=== PATIENT | female | born 1980 | race Caucasian/White ===

== ENCOUNTER 2024-01-12 19:26 | Emergency (ER) | payer MEDICARE, MEDICAID, SELFPAY ==
--- NOTE | ~2024-01-12 | CT_ITS ---
EXAMINATION: CT abdomen pelvis w con DATE: 01/12/2024 22:10 INDICATION: LUQ pain, L flank pain TECHNIQUE: Computed tomography (CT) of the abdomen and pelvis was performed with 100 mL Omnipaque-350 intravenous contrast. Automated exposure control and iterative reconstruction technique were employe d. The dose-length product was 803.64 mGy-cm. COMPARISON: None. FINDINGS: Lower thorax: Coronary artery calcifications. Sternotomy wires. Liver: Mildly enlarged. Biliary/Gallbladder: Gallbladder is absent. No bile duct dilation. Pancreas: No mass or duct dilation. Spleen: Mildly enlarged. Adrenals:No mass. Kidneys: No suspicious mass, obstructing stone, or hydronephrosis. Subcentimeter left upper pole hypo density most likely representing a cyst. GI tract: No small or large bowel dilation. Normal appendix. Mesentery/Peritoneum: No ascites, mass, or free air. Retroperitoneum: No mass. Pelvis: Pelvic organs are within normal limits. Right corpus luteal cyst. Soft Tissues: Small fat-containing uncomplicated umbilical hernia. Bones: No acute osseous finding. IMPRESSION: Mild hepatosplenomegaly. Otherwise, no acute abdominopelvic process detected. Reviewed, dictated and finalized at location K.
[2024-01-12 19:30] VITALS: BP 145/93; PULSE 92; RESP 16; TEMP 36.7; O2SAT 100
[2024-01-12 20:07] LABS: Basophils Percent Auto 0.7 % (0.2-1.2); Eosinophils Absolute Auto 0.3 K/mm3 (0-0.3); Eosinophils Percent Auto 5.1 % (0-4.4); Hematocrit 35.5 % (37.0-47.0); Hemoglobin 11.9 g/dL (12.0-15.0); Immature Granulocyte Absolute 0.02 K/mm3 (0.00-0.031); Immature Granulocyte Percent A 0.3 % (0-0.5); Lymphocytes Percent Auto 18.1 % (18.3-44.2); Mean Corpuscular HGB Conc 33.5 g/dl (32-36); Mean Corpuscular Hemoglobin 32.2 pg (26-34); Mean Corpuscular Volume 95.9 fl (80-100); Mean Platelet Volume 11.6 fl (7.4-10.4); Monocytes Absolute Auto 0.5 K/mm3 (0.1-0.6); Monocytes Percent Auto 8.7 % (2.6-8.5); Neutrophils Absolute Auto 4.1 K/mm3 (1.3-6.7); Neutrophils Percent Auto 67.1 % (45.5-73.1); Platelet Count Result 128 k/mm3 (150-375); Red Cell Distribution Width 12.9 % (11.5-14.5); White Blood Count 6.1 K/mm3 (4.5-10.0)
[2024-01-12 20:16] LABS: Alanine Aminotransferase 14 U/L (6-35); Albumin Level 4.1 g/dL (3.5-5.1); Alkaline Phosphatase 92 U/L (38-126); Anion Gap 6 mmol/L (4-12); Appearance Urine Clear (Clear); Aspartate Amino Transferase 22 U/L (14-36); Bacteria Urine 1+ /hpf; Bilirubin Urine Negative (Negative); Bilirubin,Total 0.6 mg/dL (0.2-1.3); Blood Urea Nitrogen 10 mg/dL (7-17); Blood Urine Non-Hemolyzed Trace (Negative); Carbon Dioxide 27 mmol/L (22-30); Chloride 106 mmol/L (98-107); Color Urine Yellow (Yellow); Estimated CRCL calculation 80 ml/min; Estimated Glomerular Filt Rate > 60; Glucose 90 mg/dL (65-110); Glucose Urine UA Negative (Negative); Ketones Urine Negative (Negative); Leukocyte Esterase Ur Negative LEU/UL (Negative); Lipase 117 U/L (23-300); Nitrate Urine Negative (Negative); Non Pathogenic Casts 0-2; Potassium 3.6 mmol/L (3.4-5.0); Protein Urine Negative (Negative); RBC Urine 0-2 /hpf (0-2); Sodium 139 mmol/L (137-145); Specific Grav Ur 1.024 (1.001-1.035); Squamous Epithelial Cell Urine Moderate /hpf (Few); Urobilinogen Urine 0.2 mg/dL (<2.0); pH Urine 5.5 (5.0-9.0)
[2024-01-12 20:28] LABS: Add Urine Microscopic? YES
--- NOTE | 2024-01-12 20:44 | ED.ABDPAIN ---
HPI - Abdominal Pain General Chief Complaint: Abdominal Pain Stated Complaint: abd pain Time Seen by Provider: 01/12/24 19:55 History of Present Illness HPI narrative: Patient is a 43-year-old female who presents to the emergency department this evening complaining of left-sided flank pain that started earlier this afternoon. 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 Patient denies any history of kidney stones. She also complains of mid abdominal/epigastric pain. She denies any nausea or vomiting, denies any urinary symptoms including dysuria or hematuria. She denies any recent illness, exposure to sick contacts and denies any fevers or chills. There are no other modifying, alleviating, or precipitating factors such Related Data Allergies Allergy/AdvReac Type Severity Reaction Status Date / Time Iodinated Contrast Media Allergy Other Verified 01/12/24 19:28 Review of Systems Review of Systems: All systems are reviewed and are negative unless stated otherwise in the HPI. Exam Narrative: General: Alert, awake, afebrile, in no acute distress. HEENT: PERRL, no rhinorrhea, no post nasal drip, oropharynx clear. Neck: Trachea midline, no JVD, no lymphadenopathy. Cardiovascular: Regular rate and rhythm, no murmurs, rubs or gallops, no peripheral edema. Respiratory: Clear to auscultation bilaterally, no tachypnea, no wheezing, no rhonchi, no rubs, no respiratory distress. Abdomen: Soft, nontender, nondistended, no rebound, no guarding, no peritoneal signs. Musculoskeletal: No joint swelling or deformity, normal muscle tone. Skin: No rashes or petechia, no signs of infection. Psychiatric: Alert and oriented, normal behavior and judgment for situation. Neurological: Alert and oriented to person, place, and time. Follows all commands. No focal deficits, speech is clear and fluent. Course Vital Signs Vital signs: Vital Signs Temperature 98.1 F 01/12/24 19:30 Pulse Rate 92 01/12/24 19:30 Respiratory Rate 16 01/12/24 19:30 Blood Pressure 145/93 H 01/12/24 19:30 Pulse Oximetry 100 01/12/24 19:30 Oxygen Delivery Room Air 01/12/24 19:30 Temperature 98.1 F 01/12/24 19:30 Pulse Rate 92 01/12/24 19:30 Respiratory Rate 16 01/12/24 19:30 Blood Pressure 145/93 H 01/12/24 19:30 Pulse Oximetry 100 01/12/24 19:30 Oxygen Delivery Room Air 01/12/24 19:30 MDM - Abdominal Pain MDM Narrative Medical decision making narrative: The patient was evaluated by myself in the emergency department. History is obtained from patient who is an independent historian and physical exam was performed. External medical records were reviewed at this time. IV was established and pertinent tests were ordered. Patient was administered 2 mg of IV morphine and 4 mg of IV Zofran. Patient does have an allergy to contrast dye and at this time 125 mg of IV Solu-Medrol and 50 mg of IV Benadryl were administered. Laboratory results obtained revealing no acute process. Urinalysis revealed trace blood and 1+ bacteria. Imaging studies obtained included CT abdomen and pelvis with IV contrast which was independently interpreted by me revealing no acute process, incidental hepatosplenomegaly, which is pending final radiology interpretation. Differential diagnosis considerations include pancreatitis, obstructive uropathy, pyelonephritis, and pancreatitis. Comorbidities impacting this visit include none. I have evaluated and discussed social determinants of health with the patient that could potentially impact subsequent diagnosis and treatment plans. On repeat assessment of the patient, reevaluation revealed that the patient is doing well and is in no acute distress. Patient symptoms have improved since she arrived to our emergency department. Repeat vital signs were all reviewed and noted to be stable. Differential diagnosis and treatment plan were discussed with the ching
[2024-01-12] MEDS: ONDANSETRON INJ 4 MG/2 ML VIAL IV PUSH (20:48)
[2024-01-12] MEDS: MORPHINE SULFATE (*CRX) 2 MG/ML INJ IV PUSH (20:48)
[2024-01-12] MEDS: diphenhydrAMINE HCl INJ 50 MG/ML VIAL IV PUSH (20:51)
[2024-01-12] MEDS: methylPREDNISolone SOD SUCC 125 MG VIAL IV PUSH (20:51)
[2024-01-12] MEDS: KETOROLAC 15 MG/ML VIAL (*BKC) IV PUSH (23:07)
[2024-01-12 23:16] VITALS: BP 118/68; PULSE 70; RESP 14; O2SAT 98
== END 2024-01-12 23:16 | disposition home or self-care (01) ==
PROVIDERS: Emergency Provider Emergency Medicine
DX: R10.9 Unspecified abdominal pain (principal); T14.8XXA Other injury of unspecified body region, initial encounter; R16.2 Hepatomegaly with splenomegaly, not elsewhere classified
CPT/HCPCS: 36415; 74177; 80053; 81001; 81025; 83690; 85025; 87086; 96374; 96375; 99284; J1200; J1885; J2270; J2405; J2919; Q9967

== ENCOUNTER 2024-05-13 20:16 | Emergency (ER) | payer MEDICARE, SELFPAY ==
--- NOTE | ~2024-05-13 | XR_ITS ---
EXAMINATION: XR chest 2V Exam Date/Time: 05/13/2024 20:35 CDT HISTORY: chest pain, hx surgery Comparison: None. RESULT: Lines, tubes, and devices: Multiple fractured sternotomy wires, without significant wire displacemen t. Cardiac valve replacement. Lungs and pleura: Clear. Cardiomediastinal silhouette: Stable. Other: No acute osseous or upper abdominal finding. IMPRESSION: No acute cardiopulmonary process. Reviewed, dictated and finalized at location K.
[2024-05-13 20:20] VITALS: BP 167/117; PULSE 137; RESP 20; TEMP 36.6; O2SAT 100
--- NOTE | 2024-05-13 20:21 | ECG_ITS ---
Test Date: 2024-05-13 20:28:13 Measurements Intervals [place] Rate: 120 P: 0 [place]: 0 QRS: -18 QRSD: 145 T: -4 QT: 340 QTc: 482 Interpretive Statements SINUS TACHYCARDIA WITH RAPID VENTRICULAR RESPONSE RIGHT BUNDLE BRANCH BLOCK [120+ ms QRS DURATION, UPRIGHT V1, 40+ ms S IN I/aVL/V4/V5/V6] No previous ECG available for comparison Electronically Signed On 05-14-2024 14:37:29 CDT by Tom Zabala M.D.
[2024-05-13 20:39] LABS: Basophils Percent Auto 0.5 % (0.2-1.2); Eosinophils Absolute Auto 0.4 K/mm3 (0-0.3); Eosinophils Percent Auto 5.4 % (0-4.4); Hemoglobin 13.8 g/dL (12.0-15.0); Immature Granulocyte Absolute 0.03 K/mm3 (0.00-0.031); Immature Granulocyte Percent A 0.4 % (0-0.5); Lymphocytes Percent Auto 16.3 % (18.3-44.2); Mean Corpuscular HGB Conc 35.4 g/dl (32-36); Mean Corpuscular Hemoglobin 33.9 pg (26-34); Mean Corpuscular Volume 95.8 fl (80-100); Mean Platelet Volume 11.6 fl (7.4-10.4); Monocytes Absolute Auto 0.6 K/mm3 (0.1-0.6); Monocytes Percent Auto 7.6 % (2.6-8.5); Neutrophils Absolute Auto 5.6 K/mm3 (1.3-6.7); Neutrophils Percent Auto 69.8 % (45.5-73.1); Platelet Count Result 128 k/mm3 (150-375); Red Blood Count 4.07 M/mm3 (4.2-5.4); Red Cell Distribution Width 13.4 % (11.5-14.5)
[2024-05-13 21:02] LABS: Prothrombin Time 13.8 Seconds (11.1-14.7)
[2024-05-13 21:03] LABS: Partial Thromboplastin Time 26.7 Seconds (22.3-36.8)
--- NOTE | 2024-05-13 23:04 | ED.CHESTPAIN ---
HPI - Chest Pain General Chief Complaint: Chest Pain Stated Complaint: chest pain and abd pain since 1800 Time Seen by Provider: 05/13/24 22:56 Source: patient Mode of arrival: ambulatory Limitations: no limitations History of Present Illness HPI narrative: this is a 43-year-old female who presents to the ED for chief complaint of chest pain beginning around 1800 tonight. Patient states that she has had cardiac history with stent placed in 2006 and aortic valve replacement in 2011. 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 She has not followed with a geoduck diver in many years. Endorses associated nausea and dizziness today. Reports history of anxiety and feels that this could be at play as well.. Describes the pain as a tightness in the central chest that does not radiate. No specific worsening with exertion. endorses some upper abdominal tightness as well. Denies shortness of breath, fevers, chills, recent illness, diarrhea, urinary symptoms, back pain, numbness, weakness. Related Data Allergies Allergy/AdvReac Type Severity Reaction Status Date / Time Iodinated Contrast Media Allergy Other Verified 01/12/24 19:28 Review of Systems Review of Systems: All systems as dictated in HPI Exam Narrative: GENERAL: Well-appearing, well-nourished, and in no acute distress. HEAD: Normocephalic, atraumatic. EYES: PERRLA and EOMI. ENT: Nares clear, no rhinorrhea or epistaxis. Mucous membranes moist. Oropharynx without tonsillar hypertrophy exudate or other lesions. NECK: Supple. No adenopathy or masses. CHEST: No respiratory distress. Clear to auscultation. No wheezes rales or rhonchi HEART: Regular rate and rhythm. No murmur heard. Normal peripheral pulses. ABDOMEN: Soft, nontender, nondistended, normal active bowel sounds. MSK: Normal range of motion. No edema. SKIN: Warm, dry, no rash. NEURO: Alert and oriented x4. No focal deficits. PSYCH: Normal mood and affect. Course Vital Signs Vital signs: Vital Signs Temperature 97.9 F 05/13/24 20:20 Pulse Rate 137 H 05/13/24 20:20 Respiratory Rate 20 05/13/24 20:20 Blood Pressure 167/117 H 05/13/24 20:20 Pulse Oximetry 100 05/13/24 20:20 Oxygen Delivery Room Air 05/13/24 20:20 Temperature 97.9 F 05/13/24 20:20 Pulse Rate 102 H 05/14/24 00:39 Respiratory Rate 16 05/14/24 00:39 Blood Pressure 109/64 05/14/24 00:39 Pulse Oximetry 97 05/14/24 00:39 Oxygen Delivery Room Air 05/13/24 20:20 MDM - Chest Pain MDM Narrative Medical decision making narrative: This is a 43-year-old female who presents to the ED for chief complaint of chest pain and anxiety beginning today. Vitals initially showing tachycardia and elevated blood pressure. Patient appears anxious. Exam is otherwise benign. Lab work shows normal CBC and normal CMP. D-dimer slightly elevated at 0.85. She is cleared for PE with YEARS criteria. Serial troponins are negative. Heart score is 2. Patient is feeling much better with morphine and Benadryl. Pt will be discharged in stable condition. Return precautions given and supportive measures discussed. Pt is understanding and agreeable with plan for discharge and follow-up with PCP. YEARS Algorithm for Pulmonary Embolism (PE) from [employer] on 05/14/2024 All calculations should be rechecked by clinician prior to use RESULT SUMMARY: PE excluded YEARS algorithm rules out PE (0.43% with symptomatic VTE during 3-month follow-up) INPUTS: patient ?> 0 = No Clinical signs of DVT ?> 0 = No Hemoptysis ?> 0 = No PE most likely diagnosis ?> 0 = No D-dimer >=,000 ng/mL ?> 0 = No Differential Diagnosis Differential diagnosis: Likely fracture of rib, pneumothorax, stable angina, unstable angina pectoris, atypical chest pain, st elevation myocardial infarction, costochondritis, chest pain and other ( anxiety) Lab Data 05/13/24 20:33
--- NOTE | 2024-05-13 23:05 | ECG_ITS ---
Test Date: 2024-05-13 23:23:54 Measurements Intervals [place] Rate: 99 P: 13 [place]: 124 QRS: 67 QRSD: 153 T: 72 QT: 388 QTc: 500 Interpretive Statements SINUS RHYTHM RIGHT BUNDLE BRANCH BLOCK [120+ ms QRS DURATION, UPRIGHT V1, 40+ ms S IN I/aVL/V4/V5/V6] Compared to ECG 05/13/2024 20:28:13 Sinus tachycardia no longer present Electronically Signed On 05-14-2024 14:41:59 CDT by Tom Zabala M.D.
[2024-05-13 23:20] LABS: D Dimer 0.85 ug/mL (<0.48)
--- NOTE | 2024-05-13 23:20 | PC.NURSE ---
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
[2024-05-13] MEDS: ONDANSETRON INJ 4 MG/2 ML VIAL IV PUSH (23:23)
[2024-05-13] MEDS: MORPHINE SULFATE (*CRX) 4 MG/ML INJ IV PUSH (23:23)
[2024-05-13 23:33] LABS: Alanine Aminotransferase 13 U/L (6-35); Albumin Level 4.1 g/dL (3.5-5.1); Alkaline Phosphatase 66 U/L (38-126); Anion Gap 9 mmol/L (4-12); Aspartate Amino Transferase 21 U/L (14-36); Bilirubin,Total 0.6 mg/dL (0.2-1.3); Blood Urea Nitrogen 14 mg/dL (7-17); Calcium 8.1 mg/dL (8.4-10.2); Carbon Dioxide 27 mmol/L (22-30); Chloride 101 mmol/L (98-107); Estimated CRCL calculation 74 ml/min; Estimated Glomerular Filt Rate > 60; Glucose 91 mg/dL (65-110); Lipase 67 U/L (23-300); Sodium 137 mmol/L (137-145)
[2024-05-13 23:45] LABS: Troponin I < 0.012 ng/mL (0.000-0.034)
[2024-05-14 00:39] VITALS: BP 109/64; PULSE 102; RESP 16; O2SAT 97
[2024-05-14] MEDS: diphenhydrAMINE HCl INJ 50 MG/ML VIAL 25 MG IV PUSH (01:42)
[2024-05-14 02:00] VITALS: BP 125/84; PULSE 100; RESP 14; O2SAT 97
[2024-05-14 02:47] LABS: Troponin I < 0.012 ng/mL (0.000-0.034)
[2024-05-14 03:14] VITALS: BP 110/60; PULSE 99; RESP 15; TEMP 37.1; O2SAT 99
== END 2024-05-14 03:16 | disposition home or self-care (01) ==
PROVIDERS: Emergency Provider Physician Assistant
DX: R07.89 Other chest pain (principal)
CPT/HCPCS: 36415; 71046; 80053; 83690; 84484; 85025; 85380; 85610; 85730; 93005; 96374; 96375; 99284; J1200; J2270; J2405

== ENCOUNTER 2024-07-05 20:08 | Emergency (ER) | payer MEDICARE, SELFPAY ==
--- NOTE | ~2024-07-05 | CT_ITS ---
EXAMINATION: CTA chest PE protocol DATE: 07/06/2024 07:25 CDT INDICATION: Chest pain TECHNIQUE: Computed tomographic angiography (CTA) of the chest was performed with 100 mL Omnipaque-35 0 intravenous contrast. The dose-length product was 730.98 mGy-cm. Maximum intensity projection 3D-re constructions of the aorta and other arteries were constructed by the technologist on a separate work station. Automated exposure control and iterative reconstruction technique were employed. COMPARISON: Chest x-ray dated 07/05/2024. FINDINGS: Cardiomegaly. No significant pleural or pericardial effusion. Upper abdomen is unremarkable . No dilated main pulmonary artery, suspicious for pulmonary hypertension. There is a prosthetic pulm onic valve. There is a left pulmonary artery stent. No evidence for pulmonary embolism. There are bor derline sized mediastinal lymph nodes, likely reactive. Upper abdomen is unremarkable. No focal airsp amairani consolidation. IMPRESSION: 1. No acute cardiopulmonary disease. No evidence for pulmonary embolism. Reviewed, dictated and finalized at location B.
--- NOTE | ~2024-07-05 | XR_ITS ---
EXAMINATION: XR chest 2V Exam Date/Time: 07/05/2024 20:21 CDT HISTORY: CP Comparison: 05/13/2024. RESULT: Lines, tubes, and devices: Multiple fractured sternotomy wires, in unchanged position. Cardiac valve replacement. Lungs and pleura: Clear. Cardiomediastinal silhouette: Stable. Other: No acute osseous or upper abdominal finding. IMPRESSION: No acute cardiopulmonary process. Reviewed, dictated and finalized at location K.
--- NOTE | 2024-07-05 20:09 | ECG_ITS ---
Test Date: 2024-07-05 20:13:29 Measurements Intervals [place] Rate: 114 P: 0 [place]: 0 QRS: 90 QRSD: 147 T: 69 QT: 341 QTc: 471 Interpretive Statements SINUS TACHYCARDIA RIGHT BUNDLE BRANCH BLOCK BASELINE ARTIFACT- I, III, AVL ABNORMAL ECG Compared to ECG 05/13/2024 23:23:54 HEART RATE HAS INCREASED Electronically Signed On 07-05-2024 20:25:11 CDT by Roger Sheikh D.O.
[2024-07-05 20:10] VITALS: BP 149/105; PULSE 114; RESP 20; O2SAT 97
[2024-07-05 20:33] LABS: Basophils Percent Auto 0.5 % (0.2-1.2); Eosinophils Absolute Auto 0.3 K/mm3 (0-0.3); Eosinophils Percent Auto 5.1 % (0-4.4); Hematocrit 38.9 % (37.0-47.0); Hemoglobin 13.6 g/dL (12.0-15.0); Immature Granulocyte Absolute 0.02 K/mm3 (0.00-0.031); Immature Granulocyte Percent A 0.3 % (0-0.5); Immature Platelet Fraction Pct 7.8 % (0.9-11.2); Lymphocytes Absolute Auto 0.92 K/mm3 (0.9-3.2); Lymphocytes Percent Auto 15.6 % (18.3-44.2); Mean Corpuscular Hemoglobin 33.3 pg (26-34); Mean Corpuscular Volume 95.1 fl (80-100); Mean Platelet Volume 11.6 fl (7.4-10.4); Monocytes Absolute Auto 0.6 K/mm3 (0.1-0.6); Monocytes Percent Auto 9.5 % (2.6-8.5); Neutrophils Absolute Auto 4.1 K/mm3 (1.3-6.7); Platelet Count Result 109 k/mm3 (150-375); Red Blood Count 4.09 M/mm3 (4.2-5.4); Red Cell Distribution Width 12.6 % (11.5-14.5); White Blood Count 5.9 K/mm3 (4.5-10.0)
[2024-07-05 20:41] LABS: Prothrombin Time 13.6 Seconds (11.1-14.7)
[2024-07-05 20:42] LABS: Partial Thromboplastin Time 27.8 Seconds (22.3-36.8)
[2024-07-05 20:46] LABS: Alanine Aminotransferase 18 U/L (6-35); Albumin Level 4.7 g/dL (3.5-5.1); Alkaline Phosphatase 81 U/L (38-126); Anion Gap 10 mmol/L (4-12); Aspartate Amino Transferase 27 U/L (14-36); Bilirubin,Total 0.7 mg/dL (0.2-1.3); Blood Urea Nitrogen 10 mg/dL (7-17); Calcium 7.8 mg/dL (8.4-10.2); Carbon Dioxide 31 mmol/L (22-30); Chloride 100 mmol/L (98-107); Estimated CRCL calculation 80 ml/min; Estimated Glomerular Filt Rate > 60; Glucose 94 mg/dL (65-110); Lipase 91 U/L (23-300); Potassium 3.7 mmol/L (3.4-5.0); Sodium 141 mmol/L (137-145)
[2024-07-05 20:57] LABS: Troponin I < 0.012 ng/mL (0.000-0.034)
[2024-07-05 23:58] VITALS: PULSE 96
[2024-07-05 23:59] VITALS: BP 126/83; PULSE 99; RESP 13; O2SAT 100; O2SAT 98
[2024-07-06 00:22] LABS: Troponin I < 0.012 ng/mL (0.000-0.034)
--- NOTE | 2024-07-06 00:37 | ED.CHESTPAIN ---
HPI - Chest Pain General Chief Complaint: Chest Pain Stated Complaint: Chest pain Time Seen by Provider: 07/05/24 23:34 Source: patient Mode of arrival: ambulatory Limitations: no limitations History of Present Illness HPI narrative: 43-year-old female who presents to the ED for chief complaint of chest pain intermittent over the past couple of days. States that the pain seems to get better when she stands up walks around cold but, ?but I can't just keep walking around. She also feels the pain is worse in certain positions such as lying down or when she sits up. Reports history of cardiac history with stents placed in 2006 and aortic valve replacement in 2011. 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 Denies associated nausea, vomiting, sweats, syncope. Describes the pain is a tightness in the central chest and does not radiate. Denies back pain, fevers, chills, numbness, weakness Related Data Allergies Allergy/AdvReac Type Severity Reaction Status Date / Time Iodinated Contrast Media Allergy Other Verified 07/06/24 00:00 Review of Systems Review of Systems: All systems as dictated in HPI Exam Narrative: GENERAL: Well-appearing, well-nourished, and in no acute distress. HEAD: Normocephalic, atraumatic. EYES: PERRLA and EOMI. ENT: Nares clear, no rhinorrhea or epistaxis. Mucous membranes moist. Oropharynx without tonsillar hypertrophy exudate or other lesions. NECK: Supple. No adenopathy or masses. CHEST: No respiratory distress. Clear to auscultation. No wheezes rales or rhonchi HEART: Regular rate and rhythm. No murmur heard. Normal peripheral pulses. ABDOMEN: Soft, nontender, nondistended, normal active bowel sounds. MSK: Normal range of motion. No edema. SKIN: Warm, dry, no rash. NEURO: Alert and oriented x4. No focal deficits. PSYCH: Normal mood and affect. Course Vital Signs Vital signs: Vital Signs Pulse Rate 114 H 07/05/24 20:10 Respiratory Rate 07/05/24 20:10 Blood Pressure 149/105 H 07/05/24 20:10 Pulse Oximetry 97 07/05/24 20:10 Oxygen Delivery Room Air 07/05/24 20:10 Pulse Rate 96 07/06/24 01:23 Respiratory Rate 20 07/06/24 01:23 Blood Pressure 131/98 H 07/06/24 01:23 Pulse Oximetry 99 07/06/24 01:23 Oxygen Delivery Room Air 07/05/24 23:59 MDM - Chest Pain MDM Narrative Medical decision making narrative: This is a 43 yo female who presents to the ED for chief complaint of chest pain intermittent over the past couple of days. Vitals show slightly elevated blood pressure initially but otherwise normal. Exam is benign. EKG shows sinus tachycardia with RBBB. Lab work for shows normal troponin. White count is normal. CMP unremarkable. BNP unremarkable as well. Heart score 2 D-dimer coming back elevated at 0.90. Chest CTA ordered. Chest x-ray is negative. Chest CTA shows no evidence of pulmonary embolism. There is dilatation of the main pulmonary artery which can be seen with pulmonary hypertension. There are postoperative changes involving the pulmonary artery. A patent stent is noted. She is resting comfortably on re-evaluation. Patient improved with Toradol, Ativan here. Suspect anxiety large component her symptomatology today. Pt will be discharged in stable condition. Cardiology referral given. Return precautions given and supportive measures discussed. Pt is understanding and agreeable with plan for discharge and follow-up with PCP. Lab Data 07/05/24 20:21 07/05/24 20:22 Labs: Lab Results 07/05/24 07/05/24 07/05/24 Range/Units 20:21 20:22 23:54 WBC 5.9 (4.5-10.0) K/mm3 RBC 4.09 L (4.2-5.4) M/mm3 Hgb 13.6 (12.0-15.0) g/dL Hct 38.9 (37.0-47.0) % MCV 95.1 (80-100) fl MCH 33.3 (26-34) pg MCHC 35.0 (32-36) g/dl RDW 12.6 (11.5-14.5) % Plt Count 109 L (150-375) k/mm3 MPV 11.6 H (7.4-10.4) fl Immature Gran % (Auto) 0.3 (0-0.5) % N
[2024-07-06] MEDS: LORazepam INJ (*CRX) 2 MG/ML VIAL 0.5 MG IV PUSH (01:12)
[2024-07-06 01:23] VITALS: BP 131/98; PULSE 96; RESP 20; O2SAT 99
[2024-07-06 01:59] LABS: NT Pro B Type Natriuretic Pept 117 pg/mL (19.9-100)
[2024-07-06] MEDS: KETOROLAC 30 MG/ML VIAL (*BKC) IV PUSH (02:19)
[2024-07-06] MEDS: diphenhydrAMINE HCl INJ 50 MG/ML VIAL 25 MG IV PUSH (02:23)
[2024-07-06 04:10] VITALS: BP 117/88; PULSE 98; RESP 19; TEMP 36.6; O2SAT 97
== END 2024-07-06 04:11 | disposition home or self-care (01) ==
PROVIDERS: Student in an Organized Health Care Education/Training Program; Emergency Provider Physician Assistant
DX: R07.89 Other chest pain (principal); Z95.2 Presence of prosthetic heart valve; Z95.5 Presence of coronary angioplasty implant and graft; Z87.74 Personal history of (corrected) congenital malformations of heart and circulatory system; R00.0 Tachycardia, unspecified; I45.10 Unspecified right bundle-branch block; R06.02 Shortness of breath
CPT/HCPCS: 36415; 71046; 71275; 80053; 83690; 83880; 84484; 85025; 85055; 85380; 85610; 85730; 93005; 96374; 96375; 99284; J1200; J1885; J2060; Q9967

== ENCOUNTER 2025-07-09 19:44 | Emergency (ER) | payer MEDICARE, SELFPAY ==
--- NOTE | ~2025-07-09 | XR_ITS ---
EXAMINATION: XR chest 2V DATE: 07/09/2025 20:42 INDICATION: Chest pain TECHNIQUE: PA and lateral views of the chest were obtained. COMPARISON: Chest CT dated 07/06/2024 FINDINGS: The lungs remain clear with no focal airspace opacities, pulmonary edema, pleural effusion or pneumothorax. Heart size is normal. Median sternotomy wires and pulmonic valve repair. Slightly more cephalad projected over the left hilum is a left pulmonary artery stent. Mild thoracolumbar dextrocurvature. IMPRESSION: 1. No acute cardiopulmonary disease. Reviewed, dictated and finalized at location A.
--- OUTSIDE RECORDS SUMMARY | 2025-07-09 13:10 | XMS_ITS | Encounter Summary ---
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 Legal Sex Female 9:22 AM CDT Gender Identity Female 09/02/2024 10:30 AM NUISANCE WILDLIFE CONTROL OPERATOR Sexual Orientation Not on file documented as of this encounter Last Filed Vital Signs Vital Sign Reading Time Taken Comments Blood Pressure 116/76 07/09/2025 3:00 PM CDT Pulse 83 07/09/2025 12:54 PM CDT Temperature 36.8 C (98.3 F) 07/09/2025 10:59 AM CDT Respiratory Rate 16 07/09/2025 3:00 PM CDT Oxygen Saturation 99% 07/09/2025 3:00 PM CDT Inhaled Oxygen Concentration - - Weight 89.8 kg (198 lb) 07/09/2025 10:59 AM CDT Height 154.9 cm (5' 1) 07/09/2025 10:59 AM CDT Body Mass Index 37.41 07/09/2025 10:59 AM CDT documented in this encounter Medications at Time of Discharge ferrous sulfate 325 (65 Fe) MG Tablet Take 1 Tab by mouth daily. 60 Tab 1 02/16/2018 levothyroxine (Synthroid) 175 MCG Tablet Take 175 mcg by mouth daily. traMADol (ULTRAM) 50 MG TabletIndications :Left shoulder pain, unspecified chronicity Take 1 Tablet by mouth every 8 hours as needed for Moderate or more severe pain. 12 Tablet 01/02/2025 documented as of this encounter ED Notes * Monik Cordova RN - 07/09/2025 3:19 PM CDT Discharge instructions, OTC pain control and follow up discussed with pt. Pt verbalized understanding and left in stable condition . * Katy Galloway MD - 07/09/2025 1:55 PM CDT Chief Complaint Patient presents with Chest Pain Since 1000 Patient presents with chest pain that started 1 hour prior to arrival. She describes a sharp pain in middle of her chest. Pain radiates to both shoulders. Pain worse with movement of the chest wall. Also complaining of pain when applying pressure to the chest wall. Associated with shortness of breath. She denies cough. No fever. No diaphoresis. The pain has been constant and not improving. Chest Pain Associated symptoms: no abdominal pain, no cough, no dizziness, no fever, no headache, no nausea, no palpitations, no shortness of breath and no vomiting Current Medications[1] Allergies[2] Past Medical History Positives Diagnosis Date Chest pain Hiatal hernia High cholesterol Seizure Thyroid disease Vitamin B12 deficiency (dietary) anemia 07/03/2015 Past Surgical History[3] Social History Socioeconomic History Marital status: Spouse name: Not on file Number of children: Not on file Years of education: Not on file Highest education level: Not on file Occupational History Not on file Tobacco Use Smoking status: Never Smokeless tobacco: Never Vaping Use Vaping status: Every Day Substance and Sexual Activity Alcohol use: No Drug use: No Sexual activity: Not Currently Other Topics Concern Not on file Social History Narrative Not on file Social Drivers of Health Financial Resource Needs: Medium Risk (06/02/2024) Received from [facility] Overall Financial Resource Strain (CARDIA) Difficulty of Paying Living Expenses: Somewhat hard Food Insecurity Needs: Food Insecurity Present (06/02/2024) Received from [facility] Hunger Vital Sign Within the past 12 months, you worried that your food would run out before you got the money to buymore.: Sometimes true Within the past 12 months, the food you bought just didn't last and you didn't have money to get more.: Sometimes true Transportation Needs: No Transportation Needs (06/02/2024) Received from [facility] PRAPARE - Transportation Lack of Transportation (Medical): No Lack of Transportation (Non-Medical): No Physical Activity: Not on file Stress: Stress Concern Present (06/02/2024) Received from [facility] [place] of Occupational Health - Occupational Stress Questionnaire Feeling of Stress : Rather much Social Integration: Not on file Personal Safety: Low Risk (06/18/2025) Personal Safety Feels Unsafe at Home or Work/School: no Feels Threatened by Someone: no Does Anyone Try to Keep You From Having Contact with Others or Doing Things Outside Your Home?: no Physical Signs of Abuse Present: no Housing Stability: Low Risk (08/08/2023) Received from [facility] Housing Stability Vital Sign Unable to Pay for Housing in the Last Year: No Number of Places Lived in the Last Year: 2 Unstable Housing in the Last Year: No BP 138/75 Pulse 83 Temp 98.3 ??F (36.8 ??C) (Temporal) Resp 18 Ht 5' 1 (1.549 m) Wt 198 lb (89.8 kg) LMP 06/23/2025 (Exact Date) SpO2 99% BMI 37.41 kg/m?? Review of Systems Constitutional: Negative for chills and fever. HENT: Negative for congestion, ear pain, rhinorrhea and sore throat. Eyes: Negative for discharge. Respiratory: Negative for cough, chest tightness, shortness of breath and wheezing. Cardiovascular: Positive for chest pain. Negative for palpitations and leg swelling. Gastrointestinal: Negative for abdominal pain, diarrhea, nausea and vomiting. Genitourinary: Negative for difficulty urinating and menstrual problem. Musculoskeletal: Negative for arthralgias and myalgias. Skin: Negative for rash and wound. Neurological: Negative for dizziness, syncope and headaches. All other systems reviewed and are negative. Physical Exam Vitals and nursing note reviewed. Constitutional: General: She is not in acute distress. Appearance: She is well-developed. She is not diaphoretic. HENT: Head: Normocephalic and atraumatic. Right Ear: External ear normal. Left Ear: External ear normal. Eyes: Conjunctiva/sclera: Conjunctivae normal. Pupils: Pupils are equal, round, and reactive to light. Neck: Trachea: No tracheal deviation. Cardiovascular: Rate and Rhythm: Normal rate and regular rhythm. Heart sounds: Murmur heard. Systolic murmur is present with a grade of 3/6. Pulmonary: Effort: Pulmonary effort is normal. No respiratory distress. Breath sounds: Normal breath sounds. No wheezing or rales. Abdominal: General: Bowel sounds are normal. There is no distension. Palpations: Abdomen is soft. Tenderness: There is no abdominal tenderness. There is no guarding or rebound. Musculoskeletal: General: Normal range of motion. Cervical back: Normal range of motion. Comments: Anterior chest wall is tender. Skin: General: Skin is warm and dry. Neurological: Mental Status: She is alert and oriented to person, place, and time. Cranial Nerves: No cranial nerve deficit. Procedures Recent Results (from the past 24 hours) CMP Collection Time: 07/09/25 11:06 AM Result Value Ref Range SODIUM 139 137 - 145 mmol/L POTASSIUM 3.9 3.5 - 5.1 mmol/L CHLORIDE 104 98 - 107 mmol/L CO2, VENOUS 30 22 - 30 mmol/L GLUCOSE 105 70 - 106 mg/dL BUN 11 7 - 17 mg/dL CREATININE, BLOOD 0.80 0.52 - 1.04 mg/dL ALKALINE PHOSPHATASE 69 38 - 126 U/L SGPT (ALT) 13 1 - 34 U/L SGOT (AST) 21 14 - 36 U/L ALBUMIN 4.1 3.5 - 5.0 g/dL T BILI 0.6 0.2 - 1.3 mg/dL TOTAL PROTEIN 7.9 6.3 - 8.2 g/dL CALCIUM 8.2 (L) 8.4 - 10.2 mg/dL ANION GAP 5.0 (L) 6.0 - 16.0 mmol/L BUN/CREATININE RATIO 14 7 - 30 ratio A/G RATIO 1.1 0.9 - 2.3 GLOBULIN 3.8 2.2 - 3.9 g/dL GFR, ESTIMATED >90 >60 OSMOLALITY 277 273 - 304 mOsm/kg Troponin I (Trp I) Collection Time: 07/09/25 11:06 AM Result Value Ref Range TROPONIN I <0.012 0.000 - <0.034 ng/mL CBC with Auto Differential Collection Time: 07/09/25 11:06 AM Result Value Ref Range WBC 4.26 3.88 - 10.35 10(3)/mcL RBC 3.92 3.78 - 5.29 10(6)/mcL HEMOGLOBIN (HGB) 12.3 12.0 - 16.0 g/dL HEMATOCRIT (HCT) 35.5 (L) 37.0 - 47.0 % MCV 90.6 82.0 - 100.0 fL MCH 31.4 25.9 - 32.7 pg MCHC 34.6 (H) 31.0 - 34.1 g/dL RDW 13.2 11.8 - 15.7 % PLATELET COUNT 80 (L) 150 - 450 10(3)/mcL MPV 11.5 8.7 - 12.2 fL NEUTROPHILS 66.2 40.0 - 75.0 % IMMATURE GRANULOCYTE 0.5 0.0 - 2.0 % LYMPHOCYTES 16.4 (L) 20.0 - 40.0 % MONOCYTES 11.0 (H) 0.0 - 10.0 % EOSINOPHILS 5.2 (H) 0.0 - 4.0 % BASOPHILS 0.7 0.0 - 1.0 % ABSOLUTE NEUTROPHILS 2.82 1.50 - 8.00 10(3)/mcL Troponin I (Trp I) Collection Time: 07/09/25 2:04 PM Result Value Ref Range TROPONIN I <0.012 0.000 - <0.034 ng/mL Imaging Results XR CHEST 2 VIEWS (Final result) Result time 07/09/25 13:26:33 Final result by Nano Genao MD (07/09/25 13:26:33) Narrative: EXAM: XR CHEST 2 VIEWS CLINICAL HISTORY: chest pain COMPARISON: XR RIBS BILATERAL WITH PA CHEST on DOS: 06/18/25, XR CHEST SINGLE VIEW PORTABLE on DOS: 01/02/25, CT ANGIO CHEST W/WO CONTRAST WITH PP (POST PROCESSING) on DOS: 09/01/24, XR CHEST SINGLE VIEW PORTABLE on DOS: 09/01/24 TECHNIQUE: Frontal and lateral view of the chest was obtained FINDINGS: Lines and Tubes: None Lungs: No focal consolidation. Pleura: No effusion. No pneumothorax. Cardiomediastinal contours: Unremarkable Bones: No acute osseous abnormality. IMPRESSION: No acute cardiopulmonary disease. 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 Nonspecific chest pain Disposition: Discharge ED Course as of 07/09/25 1450 Wed Jul 09, 2025 1359 EK-normal sinus rhythm, rate 100, normal QRS, normal ST, PVCs. 1449 Patient's chest pain was reproducible on exam. Cardiac workup negative x 2. Will DC home. Anticipatory guidance provided. [1] Current Facility-Administered Medications Medication Dose Route Frequency Provider Last Rate Last Admin acetaminophen (TYLENOL) tablet 650 mg 650 mg Oral Once Katy Galloway MD Current Outpatient Medications Medication Sig Dispense Refill ferrous sulfate 325 (65 Fe) MG Tablet Take 1 Tab by mouth daily. (Patient not taking: Reported on 07/09/2025) 60 Tab 1 levothyroxine (Synthroid) 175 MCG Tablet Take 175 mcg by mouth daily. traMADol (ULTRAM) 50 MG Tablet Take 1 Tablet by mouth every 8 hours as needed for Moderate or more severe pain. (Patient not taking: Reported on 07/09/2025) 12 Tablet 0 [2] Allergies Allergen Reactions Iodinated Contrast Media Other (see Comments) Sulfamethoxazole-Trimethoprim Nausea and Other (see Comments) Other reaction(s): GI Discomfort, Numbness Iodine Other (see Comments) Zolpidem Unknown Trichophyton Other (see Comments) Passes out Passes out Passes out Passes out- Pt. Unsure of spelling/name Passes out- Pt. Unsure of spelling/name [3] Past Surgical History: Procedure Laterality Date APPENDECTOMY CARDIAC SURG PROCEDURE UNLIST 4 open heart surg CHOLECYSTECTOMY LAP,INGUINAL HERNIA REPR,INITIAL hiatal hernia repair * Farooq Henderson RN - 07/09/2025 11:01 AM CDT Chest pain starting at 10 am today. Chest pain is medsternal when she pushes down on sternum, radiation to both shoulders. Took motrin at 0600 for pain. C/o SOB which subsides with rest. documented in this encounter Miscellaneous Notes * PatientPass Patient Instructions - Katy Galloway MD - 07/09/2025 2:49 PM CDT Images from the original note were not included. Patient Education Table of Contents Nonspecific Chest Pain To view videos and all your education online visit, [email or web address] or scan this QR code with your smartphone. Access to this content will in one year. Nonspecific Chest Pain Chest pain can be caused by many different conditions. Some causes of chest pain can be life-threatening. These will require treatment right away. Serious causes of chest pain include: Heart attack. A tear in the body's main blood vessel. Redness and swelling (inflammation) around your heart. Blood clot in your lungs. Other causes of chest pain may not be so serious. These include: Heartburn. Anxiety or stress. Damage to bones or muscles in your chest. Lung infections. Chest pain can feel like: Pain or discomfort in your chest. Crushing, pressure, aching, or squeezing pain. Burning or tingling. Dull or sharp pain that is worse when you move, cough, or take a deep breath. Pain or discomfort that is also felt in your back, neck, jaw, shoulder, or arm, or pain that spreads to any of these areas. It is hard to know whether your pain is caused by something that is serious or something that is not so serious. So it is important to see your doctor right away if you have chest pain. Follow these instructions at home: Medicines Take [id number] and prescription medicines only as told by your doctor. If you were prescribed an antibiotic medicine, take it as told by your doctor. Do not stop taking the antibiotic even if you start to feel better. Lifestyle Rest as told by your doctor. Do not use any products that contain nicotine or tobacco, such as cigarettes, e- cigarettes, and chewing tobacco. If you need help quitting, ask your doctor. Do not drink alcohol. Make lifestyle changes as told by your doctor. These may include: ? Getting regular exercise. Ask your doctor what activities are safe for you. ? Eating a heart-healthy diet. A diet and nutrition services manager (dietitian) can help you to learn healthy eating options. ? Staying at a healthy weight. ? Treating diabetes or high blood pressure, if needed. ? Lowering your stress. Activities such as yoga and relaxation techniques can help. General instructions Pay attention to any changes in your symptoms. Tell your doctor about them or any new symptoms. Avoid any activities that cause chest pain. Keep all follow-up visits as told by your doctor. This is important. You may need more testing if your chest pain does not go away. Contact a doctor if: Your chest pain does not go away. You feel depressed. You have a fever. Get help right away if: Your chest pain is worse. You have a cough that gets worse, or you cough up blood. You have very bad (severe) pain in your belly (abdomen). You pass out (faint). You have either of these for no clear reason: ? Sudden chest discomfort. ? Sudden discomfort in your arms, back, neck, or jaw. You have shortness of breath at any time. You suddenly start to sweat, or your skin gets clammy. You feel sick to your stomach (nauseous). You throw up (vomit). You suddenly feel lightheaded or dizzy. You feel very weak or tired. Your heart starts to beat fast, or it feels like it is skipping beats. These symptoms may be an emergency. Do not wait to see if the symptoms will go away. Get medical help right away. Call your local emergency services (911 in the [place] Do not drive yourself to the hospital. Summary Chest pain can be caused by many different conditions. The cause may be serious and need treatment right away. If you have chest pain, see your doctor right away. Follow your doctor's instructions for taking medicines and making lifestyle changes. Keep all follow-up visits as told by your doctor. This includes visits for any further testing if your chest pain does not go away. Be sure to know the signs that show that your condition has become worse. Get help right away if you have these symptoms. This information is not intended to replace advice given to you by your health care provider. Make sure you discuss any questions you have with your health care provider. Document Released: 2009-03-13 Document Updated: 2023-08-10 Document Reviewed: 2023-08-10 [employer] Patient Education ? 2024 [employer] documented in this encounter Plan of Treatment Pending Results Name Type Priority Associated Diagnoses Date /Time EKG 12 LEAD ECG STAT 07/09/2025 10 :49 AM CDT documented as of this encounter Procedures Procedure Name Priority Date/Time Associated Diagnosis Comments TROPONIN I (TRP I) STAT 07/09/2025 2: 04 PM CDT XR CHEST 2 VIEWS STAT 07/09/2025 1:14 PM CDT RED TOP TUBE STAT 07/09/2025 11:10 AM CDT BLUE TOP TUBE STAT 07/09/2025 11:10 AM CDT CBC WITH AUTO DIFFERENTIAL STAT 07/09/2025 11:06 AM CDT TROPONIN I (TRP I) STAT 07/09/2025 11 :06 AM CDT CMP (COMPREHENSIVE METABOLIC PANEL) STAT 07/09/2025 11:06 AM CDT COMPLETE BLOOD COUNT (CBC) WITH DIFF STAT 07/09/2025 11:06 AM CDT EKG 12 LEAD STAT 07/09/2025 10:49 AM CDT Procedure Note - 07/09/2025 10:49 AM CDTThis note is in progress. IMPRESSION: [facility] [address] [place] [address] Test Date: 2025-07-09 Pat Name: LEANA BONILLA Department: Room: Gender: F Press Tender Smoke Signal: DEANDRA : 1980 Requested By: SANTOSH DESAI Order Number: [id number] Reading MD: Measurements Intervals [place] Rate: 98 P: 26 KS: 159 QRS: 63 QRSD: 157 T: 87 QT: 398 QTc: 509 Interpretive Statements Sinus rhythm Ventricular premature complex Right bundle branch block documented in this encounter Results * Troponin I (Trp I) (07/09/2025 2:04 PM CDT) Only the most recent of2 resultswithin the time period is included. TROPONIN I <0.012 0.000 - <0.034 ng/mL 07/09/2025 2:41 PM CDT [facility] Blood Venipuncture / Unknown 07/09/2025 2:04 PM CDT 07/09/2025 2:11 PM CDT us Katy Galloway MD CHEMISTRY ORDERABLES Final Result [facility] [address] [place] [address], [place] [phone] * XR CHEST 2 VIEWS (07/09/2025 1:14 PM CDT) Anatomical Region Laterality Modality Chest N/A Computed Radiogr aphy Narrative 07/09/2025 1:24 PM CDT EXAM: XR CHEST 2 VIEWS CLINICAL HISTORY: chest pain COMPARISON: XR RIBS BILATERAL WITH PA CHEST on DOS: 06/18/25, XR CHEST SINGLE VIEW PORTABLE on DOS: 01/02/25, CT ANGIO CHEST W/WO CONTRAST WITH PP (POST PROCESSING) on DOS: 09/01/24, XR CHEST SINGLE VIEW PORTABLE on DOS: 09/01/24 TECHNIQUE: Frontal and lateral view of the chest was obtained FINDINGS: Lines and Tubes: None Lungs: No focal consolidation. Pleura: No effusion. No pneumothorax. Cardiomediastinal contours: Unremarkable Bones: No acute osseous abnormality. IMPRESSION: No acute cardiopulmonary disease. ANCE WILDLIFE CONTROL OPERATOR Procedure Note Nano Genao MD - 07/09/2025 EXAM: XR CHEST 2 VIEWS CLINICAL HISTORY: chest pain COMPARISON: XR RIBS BILATERAL WITH PA CHEST on DOS: 06/18/25, XR CHESTSINGLE VIEW PORTABLE on DOS: 01/02/25, CT ANGIO CHEST W/WO CONTRAST WITH PP(POST PROCESSING) on DOS: 09/01/24, XR CHEST SINGLE VIEW PORTABLE on DOS:09/01/24 TECHNIQUE: Frontal and lateral view of the chest was obtained FINDINGS: Lines and Tubes: None Lungs: No focal consolidation. Pleura: No effusion. No pneumothorax. Cardiomediastinal contours: Unremarkable Bones: No acute osseous abnormality. IMPRESSION: No acute cardiopulmonary disease. ANCE WILDLIFE CONTROL OPERATOR us Katy Galloway MD IMG DIAGNOSTIC ORDERABLES F inal Result * Red Top Tube (07/09/2025 11:10 AM CDT) Blood No Phlebotomy Charged / Unknown 07/09/2025 11:10 AM CDT 07/09/2025 11:10 AM CDT us Katy Galloway MD CHEMISTRY ORDERABLES Final Result [facility] [address] [facility] [place] [address], [place] [phone] * Blue Top Tube (07/09/2025 11:10 AM CDT) Blood No Phlebotomy Charged / Unknown 07/09/2025 11:10 AM CDT 07/09/2025 11:10 AM CDT us Katy Galloway MD HEMATOLOGY ORDERABLES Final Result [facility] [address] [place] [address], [place] [phone] * (ABNORMAL) CBC with Auto Differential (07/09/2025 11:06 AM T) WBC 4.26 3.88 - 10.35 10(3)/mcL 07/09/2025 11:20 AM [facility] RBC 3.92 3.78 - 5.29 10(6)/mcL 07/09/2025 11:20 AM [facility] HEMOGLOBIN (HGB) 12.3 12.0 - 16.0 g/dL 07/09/2025 11:20 AM [facility] HEMATOCRIT (HCT) 35.5(L) 37.0 - 47.0 % 07/09/2025 11:20 AM [facility] MCV 90.6 82.0 - 100.0 fL 07/09/2025 11:20 AM [facility] MCH 31.4 25.9 - 32.7 pg 07/09/2025 11:20 AM [facility] MCHC 34.6(H) 31.0 - 34.1 g/dL 07/09/2025 11:20 AM [facility] RDW 13.2 11.8 - 15.7 % 07/09/2025 11:20 AM [facility] PLATELET COUNT 80(L) 150 - 450 10(3)/mcL 07/09/2025 11:20 AM [facility] MPV 11.5 8.7 - 12.2 fL 07/09/2025 11:20 AM [facility] NEUTROPHILS 66.2 40.0 - 75.0 % 07/09/2025 11:20 AM [facility] IMMATURE GRANULOCYTE 0.5 0.0 - 2.0 % 07/09/2025 11:20 AM [facility] LYMPHOCYTES 16.4(L) 20.0 - 40.0 % 07/09/2025 11:20 AM [facility] MONOCYTES 11.0(H) 0.0 - 10.0 % 07/09/2025 11:20 AM [facility] EOSINOPHILS 5.2(H) 0.0 - 4.0 % 07/09/2025 11:20 AM [facility] BASOPHILS 0.7 0.0 - 1.0 % 07/09/2025 11:20 AM [facility] ABSOLUTE NEUTROPHILS 2.82 1.50 - 8.00 10(3)/mcL 07/09/2025 11:20 AM [facility] Blood Venipuncture / Unknown 07/09/2025 11:06 AM CDT 07/09/2025 11:09 AM CDT us Katy Galloway MD HEMATOLOGY ORDERABLES Final Result [facility] [address] [facility] [place] [address], [place] [phone] * (ABNORMAL) CMP (07/09/2025 11:06 AM CDT) SODIUM 139 137 - 145 mmol/L 07/09/2025 11:31 AM [facility] POTASSIUM 3.9 3.5 - 5.1 mmol/L 07/09/2025 11:31 AM [facility] CHLORIDE 104 98 - 107 mmol/L 07/09/2025 11:31 AM [facility] CO2, VENOUS 30 22 - 30 mmol/L 07/09/2025 11:31 AM [facility] GLUCOSE 105 70 - 106 mg/dL 07/09/2025 11:31 AM [facility] BUN 11 7 - 17 mg/dL 07/09/2025 11:31 AM [facility] CREATININE, BLOOD 0.80 0.52 - 1.04 mg/dL 07/09/2025 11:31 AM [facility] ALKALINE PHOSPHATASE 69 38 - 126 U/L 07/09/2025 11:31 AM [facility] SGPT (ALT) 13 1 - 34 U/L 07/09/2025 11:31 AM [facility] SGOT (AST) 21 14 - 36 U/L 07/09/2025 11:31 AM [facility] ALBUMIN 4.1 3.5 - 5.0 g/dL 07/09/2025 11:31 AM [facility] T BILI 0.6 0.2 - 1.3 mg/dL 07/09/2025 11:31 AM [facility] TOTAL PROTEIN 7.9 6.3 - 8.2 g/dL 07/09/2025 11:31 AM [facility] CALCIUM 8.2(L) 8.4 - 10.2 mg/dL 07/09/2025 11:31 AM [facility] ANION GAP 5.0(L) 6.0 - 16.0 mmol/L 07/09/2025 11:31 AM [facility] BUN/CREATININE RATIO 14 7 - 30 ratio 07/09/2025 11:31 AM [facility] A/G RATIO 1.1 0.9 - 2.3 07/09/2025 11:31 AM [facility] GLOBULIN 3.8 2.2 - 3.9 g/dL 07/09/2025 11:31 AM [facility] GFR, ESTIMATED >90 >60 07/09/2025 11:31 AM [facility] OSMOLALITY 277 273 - 304 mOsm/kg 07/09/2025 11:31 AM [facility] Blood Venipuncture / Unknown 07/09/2025 11:06 AM T 07/09/2025 11:09 AM [facility] us Katy Galloway MD CHEMISTRY ORDERABLES Final Result [facility] [address] [place] [address], [place] [phone] documented in this encounter Visit Diagnoses Diagnosis Nonspecific chest pain- Primary documented in this encounter Administered Medications Inactive Administered Medications - up to 3 most recent administrations Medication Order MAR Action Action Date Dose Rate Site acetaminophen (TYLENOL) tablet 650 mg 650 mg, Oral, ONCE, 1 dose, On Mon07/09/25 at 1450, Maximum dose of acetaminophen is 4000 mg from all sources in 24 hours. Given 07/09/2025 3:15 PM CDT 650 mg documented in this encounter Active and Recently Administered Medications Times are shown in CDT. Scheduled Medication Order 07/07/2025 07/08/2025 07/09/2025 acetaminophen (TYLENOL) tablet 650 mg (COMPLETED) 650 mg, Oral, ONCE, 1 dose, On Mon07/09/25 at 1450, Maximum dose of acetaminophen is 4000 mg from all sources in 24 hours. 1515 (Given - Provid er: Monik Cordova RN) documented in this encounter Additional Health Concerns Assessment Noted Time PHQ-9 Depression Total Score: 0 02/06/20 20 2:13 PM CDT documented as of this encounter Care Teams Senior Mechanical Designer Relationship Specialty Start Date End Date Hao Fuller PA PCP - General Physician Director Of Digital Technology 08/27/15 Ralph Perez MD [address] [place] [address] Oncology 03/16/17 documented as of this encounter
--- OUTSIDE RECORDS SUMMARY | 2025-07-09 13:10 | XMS_ITS | Encounter Summary ---
Author Organization [facility] Address [address] [place] [address] Phone Care Team Providers Care Groover And Turner Name Role Phone Hoa Fuller Primary Care Provider [phone] Ralph Perez MD Unavailable [phone] Reason for Visit * Reason Comments Chest Pain Since 1000 Encounter Details Date Type Department Care Team (Late st Contact Info) Description 07/09/2025 1:10 PM CDT - 07/09/2025 3:19 PM CDT Emergency [facility] Emergency Dept. Services [address] [place] [address] Nonspecific chest pain Discharge Disposition: Discharged [...] Sex Assigned at Female 09/01/2024 4:00 PM MEDIA MONITOR Legal Sex Female 9:22 AM CDT Gender Identity Female 09/02/2024 10:30 AM MEDIA MONITOR Sexual Orientation Not on file documented as [...] as of this encounter ED Notes * Katy Galloway MD - 07/09/2025 1:55 [...] Resource Needs: Medium Risk (06/02/2024) Received from [facility] Overall Financial Resource Strain (CARDIA) Difficulty of Paying Living Expenses: Somewhat hard Food Insecurity Needs: Food Insecurity Present (06/02/2024) Received from [facility] Hunger Vital Sign Within the past 12 months, you worried that your food would run out before you got the money to buymore.: Sometimes true Within the past 12 months, the food you bought just didn't last and you didn't have money to get more.: Sometimes true Transportation Needs: No Transportation Needs (06/02/2024) Received from [facility] PRAPARE - Transportation Lack of Transportation (Medical): No Lack of Transportation (Non-Medical): No Physical Activity: Not on file Stress: Stress Concern Present (06/02/2024) Received from [facility] [employer] - Occupational Stress Questionnaire [...] Housing Stability: Low Risk (08/08/2023) Received from [facility] Housing Stability Vital Sign Unable to Pay [...] osseous abnormality. IMPRESSION: No acute cardiopulmonary disease. A MONITOR Medical Decision Making Clinical Impression 1. Nonspecific [...] videos and all your education online visit, [email or web address] or scan this QR code with your [...] Follow these instructions at home: Medicines Take [id number] and prescription medicines only as told by [...] Eating a heart-healthy diet. A diet and clinical nutrition manager (dietitian) can help you to learn [...] 2009-03-13 Document Updated: 2023-08-10 Document Reviewed: 2023-08-10 [employer] Patient Education ? 2024 [employer]. documented in this encounter Plan of Treatment [...] AM CDTThis note is in progress. 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 TROPONIN I <0.012 0.000 - <0.034 ng/mL 07/09/2025 2:41 PM CDT [facility] Blood Venipuncture / Unknown 07/09/2025 2:04 PM CDT 07/09/2025 2:11 PM CDT us Katy Galloway MD CHEMISTRY ORDERABLES Final Result [facility] [address] [place] [address], [place] [phone] * XR CHEST 2 VIEWS (07/09/2025 1:14 [...] osseous abnormality. IMPRESSION: No acute cardiopulmonary disease. A MONITOR Procedure Note Nano Genao MD - 07/09/2025 [...] osseous abnormality. IMPRESSION: No acute cardiopulmonary disease. A MONITOR Katy Galloway MD IMG DIAGNOSTIC ORDERABLES F inal Result * Red Top Tube (07/09/2025 11:10 AM CDT) Blood No Phlebotomy Charged / Unknown 07/09/2025 11:10 AM CDT 07/09/2025 11:10 AM CDT Katy Galloway MD CHEMISTRY ORDERABLES Final Result Performing Organization Address [facility] Co de Phone Number [facility] [address] [place] [address], [place] [phone] * Blue Top Tube (07/09/2025 11:10 AM CDT) Blood No Phlebotomy Charged / Unknown 07/09/2025 11:10 AM CDT 07/09/2025 11:10 AM CDT Katy Galloway MD HEMATOLOGY ORDERABLES Final Result Performing Organization Address [facility] Co de Phone Number [facility] [address] [place] [address], [place] [phone] * (ABNORMAL) CBC with Auto Differential (07/09/2025 11:06 AM CDT) WBC 4.26 3.88 - 10.35 10(3)/mcL 07/09/2025 11:20 AM [facility] RBC 3.92 3.78 - 5.29 10(6)/mcL 07/09/2025 11:20 AM [facility] HEMOGLOBIN (HGB) 12.3 12.0 - 16.0 g/dL 07/09/2025 11:20 AM [facility] HEMATOCRIT (HCT) 35.5(L) 37.0 - 47.0 % 07/09/2025 11:20 AM [facility] MCV 90.6 82.0 - 100.0 fL 07/09/2025 11:20 AM [facility] MCH 31.4 25.9 - 32.7 pg 07/09/2025 11:20 AM [facility] MCHC 34.6(H) 31.0 - 34.1 g/dL 07/09/2025 11:20 AM [facility] RDW 13.2 11.8 - 15.7 % 07/09/2025 11:20 AM [facility] PLATELET COUNT 80(L) 150 - 450 10(3)/mcL 07/09/2025 11:20 AM [facility] MPV 11.5 8.7 - 12.2 fL 07/09/2025 11:20 AM [facility] NEUTROPHILS 66.2 40.0 - 75.0 % 07/09/2025 11:20 AM [facility] IMMATURE GRANULOCYTE 0.5 0.0 - 2.0 % 07/09/2025 11:20 AM [facility] LYMPHOCYTES 16.4(L) 20.0 - 40.0 % 07/09/2025 11:20 AM [facility] MONOCYTES 11.0(H) 0.0 - 10.0 % 07/09/2025 11:20 AM [facility] EOSINOPHILS 5.2(H) 0.0 - 4.0 % 07/09/2025 11:20 AM [facility] BASOPHILS 0.7 0.0 - 1.0 % 07/09/2025 11:20 AM [facility] ABSOLUTE NEUTROPHILS 2.82 1.50 - 8.00 10(3)/mcL 07/09/2025 11:20 AM [facility] Blood Venipuncture / Unknown 07/09/2025 11:06 AM CDT 07/09/2025 11:09 AM CDT us Katy Galloway MD HEMATOLOGY ORDERABLES Final Result [facility] [address] [place] [address], [place] [phone] * (ABNORMAL) CMP (07/09/2025 11:06 AM CDT) SODIUM 139 137 - 145 mmol/L 07/09/2025 11:31 AM [facility] POTASSIUM 3.9 3.5 - 5.1 mmol/L 07/09/2025 11:31 AM [facility] CHLORIDE 104 98 - 107 mmol/L 07/09/2025 11:31 AM [facility] CO2, VENOUS 30 22 - 30 mmol/L 07/09/2025 11:31 AM [facility] GLUCOSE 105 70 - 106 mg/dL 07/09/2025 11:31 AM [facility] BUN 11 7 - 17 mg/dL 07/09/2025 11:31 AM [facility] CREATININE, BLOOD 0.80 0.52 - 1.04 mg/dL 07/09/2025 11:31 AM [facility] ALKALINE PHOSPHATASE 69 38 - 126 U/L 07/09/2025 11:31 AM [facility] SGPT (ALT) 13 1 - 34 U/L 07/09/2025 11:31 AM [facility] SGOT (AST) 21 14 - 36 U/L 07/09/2025 11:31 AM [facility] ALBUMIN 4.1 3.5 - 5.0 g/dL 07/09/2025 11:31 AM [facility] T BILI 0.6 0.2 - 1.3 mg/dL 07/09/2025 11:31 AM [facility] TOTAL PROTEIN 7.9 6.3 - 8.2 g/dL 07/09/2025 11:31 AM [facility] CALCIUM 8.2(L) 8.4 - 10.2 mg/dL 07/09/2025 11:31 AM [facility] ANION GAP 5.0(L) 6.0 - 16.0 mmol/L 07/09/2025 11:31 AM [facility] BUN/CREATININE RATIO 14 7 - 30 ratio 07/09/2025 11:31 AM [facility] A/G RATIO 1.1 0.9 - 2.3 07/09/2025 11:31 AM [facility] GLOBULIN 3.8 2.2 - 3.9 g/dL 07/09/2025 11:31 AM [facility] GFR, ESTIMATED >90 >60 07/09/2025 11:31 AM [facility] OSMOLALITY 277 273 - 304 mOsm/kg 07/09/2025 11:31 AM [facility] Blood Venipuncture / Unknown 07/09/2025 11:06 AM CDT 07/09/2025 11:09 AM CDT Katy Galloway MD CHEMISTRY ORDERABLES Final Result [facility] [address] [facility] [place] [address], [place] [phone] documented in this encounter Visit Diagnoses Diagnosis [...] documented as of this encounter Care Teams Groover And Turner Relationship Specialty Start Date End Date Hoa Fuller PA PCP - General Physician Health Counselor 08/27/15 Ralph Perez MD [address] [address] Oncology 03/16/17 documented as of this encounter
--- NOTE | 2025-07-09 19:47 | ECG_ITS ---
Test Date: 2025-07-09 20:20:58 Measurements Intervals [place] Rate: 101 P: 15 AL: 134 QRS: 94 QRSD: 144 T: 69 QT: 371 QTc: 482 Interpretive Statements SINUS TACHYCARDIA RIGHT BUNDLE BRANCH BLOCK BASELINE ARTIFACT- I, III, AVR, AVL, AVF ABNORMAL ECG Compared to ECG 07/05/2024 20:13:29 HEART RATE HAS DECREASED Electronically Signed On 07-10-2025 05:21:41 CDT by Roger Sheikh D.O.
--- OUTSIDE RECORDS SUMMARY | 2025-07-09 19:49 | XMS_ITS | Clinical Summary ---
Author Organization [facility] Address [address] [place] [address] Phone Care Team Providers Care Switchboard Clerk Name Role Phone Hoa Fuller Primary Care Provider Ralph Perez MD Unavailable [phone] Allergies Active Allergy Reactions Criticality Noted Date Comments Iodinated Contrast Media Other (see Comments) High 01/02/2025 Iodine Other (see Comments) 09/01/2024 Sulfamethoxazole-Trimet hoprim Nausea,Other (see Comments) High 09/06/2016 Other reaction(s): GI Discomfort, Numbness Trichophyton Other (see Comments) Low 05/29/2014 Passes out Passes out Passes out Passes out- Pt. Unsure of spelling/name Passes out- Pt. Unsure of spelling/name Zolpidem Unknown 02/19/2009 Medications ferrous sulfate 325 (65 Fe) MG Tablet Take 1 Tab by mouth daily. 60 Tab 1 8 Active Additional Information Patient not taking.Reported on 07/09/2025 levothyroxine (Synthroid) 175 MCG Tablet Take 175 mcg by mouth daily. Active traMADol (ULTRAM) 50 MG TabletIndicatio ns:Left shoulder pain, unspecified chronicity Take 1 Tablet by mouth every 8 hours as needed for Moderate or more severe pain. 12 Tablet 5 Active Additional Information Patient not taking.Reported on 07/09/2025 furosemide (LASIX) 40 MG Tablet Take by mouth. 025 Discontin ued(Med List Clean Up) LORazepam (ATIVAN) 1 MG Tablet Take 0.5 mg by mouth. 025 Discontin ued(Med List Clean Up) buPROPion (WELLBUTRIN) 150 MG XL tablet 8 025 Discontin ued(Med List Clean Up) potassium chloride CR (KLORCON) 10 MEQ Tablet Controlled Release Take by mouth. 025 Discontin ued(Med List Clean Up) metoprolol tartrate (LOPRESSOR) 25 MG Tablet Take by mouth. 6 025 Discontin ued(Med List Clean Up) aspirin 81 MG Chewable Tablet Take by mouth. 06/18 Discontin ued(Med List Clean Up) Active Problems Patient Care Coordination No te Formatting of this note migh t be different from the original. NO CA DX 05/13/19 J[facility] Problem Noted Date Diagnosed Date Thrombocytopenia 07/26/2016 Iron deficiency anemia due to chronic blood loss 09/01/2015 Vitamin B12 deficiency (dietary) anemia 07/28/20 15 Encounters Date Type Department Care Team Description 07/09/2025 1:10 PM CDT - 07/09/2025 3:19 PM CDT Emergency [facility] Emergency Dept. Services [address] [place] [address] Nonspecific chest pain Discharge Disposition: Discharged to home or Selfcare 06/18/2025 2:06 PM CDT - 06/18/2025 3:52 PM CDT Emergency [facility] Emergency Dept. Services [address] [place] [address] Jose Miguel Rios MD Chest wall pain Discharge Disposition: Discharged to home or Selfcare 06/18/2025 Travel from Last 3 Months Immunizations Immunization Administration Dates Next Due Influenza Vaccine, Quadrivalent, PF 06/2023,06/23/2022,07/13/2021,2019,07/18/2015 Influenza Vaccine,unspecifie d Formulation 07/09/2023,07/23/2020,07/25/2017,2015,07/18/2015,08/29/2014,07/16/2013,1 ,07/09/2012,06/09/2011 Influenza,Split Virus,Trivalent,Injectable,PF 08/29/2014,07/16/2013 MMR Vaccine 10/27/2016,10/27/2016 MMRV 10/27/2016,10/27/2016 Pneumococcal Vaccine Adult - 23 Valent 02/17/2014 TDAP Vaccine 07/13/2021,10/27/2016 Varicella Vaccine Live 10/27/2016,10/27/2016 Family History Medical History Relation Name Comments Anemia Brother Diabetes Father Heart Attack Father Anemia Mother No Known Problems Sister Relation Name Status Comments Brother Alive Father Alive Mother Alive Sister Social History Tobacco Use Types Packs/Day Years [...] Sex Assigned at Female 09/01/2024 4:00 PM UNPAID INTERN Legal Sex Female 9:22 AM CDT Gender Identity Female 09/02/2024 10:30 AM UNPAID INTERN Sexual Orientation Not on file Last Filed Vital Signs Vital Sign Reading [...] Mass Index 37.41 07/09/2025 10:59 AM CDT Plan of Treatment Health Maintenance Due Date Last Done Comments Hepatitis C Virus (HCV) Screening 1980 Hepatitis B Immunization (1 of 3 - 19+ 3-dose series) 2001 Human Papillomavirus (HPV) Immunization (1 - 3-dose SCDM series) 2009 HPV/Cotest 2012 Cervical Cancer Screening (CCS) 03/24/2024 Pap Smear 03/24/2024 03/24/2021 Mammogram 07/25/2024 07/25/2023, 07/25/2023 Influenza Immunization (#1) 2025 10/0 06/2023, 07/09/2023, 06/23/2022, Additional history exists SARS-COV-2 Immunization ( season) 2025 03/19/2021, 02/19/2021 Medicare Subsequent AWV G0439 09/10/2025 09/10/2024, 07/17/2023, 12/09/2021, Additional history exists Td Immunization Every 10 Years (Adults With 1 Tdap) 07/13/2031 07/13/2021, 10/27/2016 Respiratory Syncytial Virus (RSV) Immunization (Adult) (1 - 1-dose 75+ series) 2057 Medicare Initial AWV G0438 Discontinued 01/30/2014 Pneumococcal Immunization Combined Aged Out 02/17/2014 No longer eligible based on patient's age to complete this topic DTaP/Tdap/Td Immunization Discontinued 07/13/2021, TdaP Immunization Discontinued 07/13/2021, 10/27/2016 Discussion re Starting/Frequency of Mammograms Completed 07/25/2023 Meningococcal Immunization (ACWY) Aged Out No longer eligible based on patient's age to complete this topic Rotavirus Immunization Aged Out No lo nger eligible based on patient's age to complete this topic Procedures Procedure Name Priority Date/Time Associated Diagnosis [...] AM CDTThis note is in progress. 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 TROPONIN I <0.012 0.000 - <0.034 ng/mL 07/09/2025 2:41 PM CDT [facility] Blood Venipuncture / Unknown 07/09/2025 2:04 PM CDT 07/09/2025 2:11 PM CDT us Katy Galloway MD CHEMISTRY ORDERABLES Final Result [facility] [address] [place] [address], [place] [phone] * XR CHEST 2 VIEWS (07/09/2025 1:14 [...] osseous abnormality. IMPRESSION: No acute cardiopulmonary disease. ID INTERN Procedure Note Nano Genao MD - 07/09/2025 [...] osseous abnormality. IMPRESSION: No acute cardiopulmonary disease. ID INTERN us Katy Galloway MD IMG DIAGNOSTIC ORDERABLES F inal Result * Red Top Tube (07/09/2025 11:10 AM CDT) Blood No Phlebotomy Charged / Unknown 07/09/2025 11:10 AM CDT 07/09/2025 11:10 AM CDT Katy Galloway MD CHEMISTRY ORDERABLES Final Result [facility] [address] [place] [address], [place] [phone] * Blue Top Tube (07/09/2025 11:10 AM CDT) Blood No Phlebotomy Charged / Unknown 07/09/2025 11:10 AM CDT 07/09/2025 11:10 AM CDT us Katy Galloway MD HEMATOLOGY ORDERABLES Final Result [facility] [address] [place] [address], [place] [phone] * (ABNORMAL) CBC with Auto Differential (07/09/2025 11:06 AM CDT) WBC 4.26 3.88 - 10.35 10(3)/mcL 07/09/2025 11:20 AM [facility] RBC 3.92 3.78 - 5.29 10(6)/mcL 07/09/2025 11:20 AM [facility] HEMOGLOBIN (HGB) 12.3 12.0 - 16.0 g/dL 07/09/2025 11:20 AM [facility] HEMATOCRIT (HCT) 35.5(L) 37.0 - 47.0 % 07/09/2025 11:20 AM [facility] MCV 90.6 82.0 - 100.0 fL 07/09/2025 11:20 AM [facility] MCH 31.4 25.9 - 32.7 pg 07/09/2025 11:20 AM [facility] MCHC 34.6(H) 31.0 - 34.1 g/dL 07/09/2025 11:20 AM [facility] RDW 13.2 11.8 - 15.7 % 07/09/2025 11:20 AM [facility] PLATELET COUNT 80(L) 150 - 450 10(3)/mcL 07/09/2025 11:20 AM [facility] MPV 11.5 8.7 - 12.2 fL 07/09/2025 11:20 AM [facility] NEUTROPHILS 66.2 40.0 - 75.0 % 07/09/2025 11:20 AM [facility] IMMATURE GRANULOCYTE 0.5 0.0 - 2.0 % 07/09/2025 11:20 AM [facility] LYMPHOCYTES 16.4(L) 20.0 - 40.0 % 07/09/2025 11:20 AM [facility] MONOCYTES 11.0(H) 0.0 - 10.0 % 07/09/2025 11:20 AM [facility] EOSINOPHILS 5.2(H) 0.0 - 4.0 % 07/09/2025 11:20 AM [facility] BASOPHILS 0.7 0.0 - 1.0 % 07/09/2025 11:20 AM [facility] ABSOLUTE NEUTROPHILS 2.82 1.50 - 8.00 10(3)/mcL 07/09/2025 11:20 AM [facility] Blood Venipuncture / Unknown 07/09/2025 11:06 AM CDT 07/09/2025 11:09 AM CDT us Katy Galloway MD HEMATOLOGY ORDERABLES Final Result [facility] [address] [facility] [place] [address], * (ABNORMAL) CMP (07/09/2025 11:06 AM CDT) SODIUM 139 137 - 145 mmol/L 07/09/2025 11:31 AM [facility] POTASSIUM 3.9 3.5 - 5.1 mmol/L 07/09/2025 11:31 AM [facility] CHLORIDE 104 98 - 107 mmol/L 07/09/2025 11:31 AM [facility] CO2, VENOUS 30 22 - 30 mmol/L 07/09/2025 11:31 AM [facility] GLUCOSE 105 70 - 106 mg/dL 07/09/2025 11:31 AM [facility] BUN 11 7 - 17 mg/dL 07/09/2025 11:31 AM [facility] CREATININE, BLOOD 0.80 0.52 - 1.04 mg/dL 07/09/2025 11:31 AM [facility] ALKALINE PHOSPHATASE 69 38 - 126 U/L 07/09/2025 11:31 AM [facility] SGPT (ALT) 13 1 - 34 U/L 07/09/2025 11:31 AM [facility] SGOT (AST) 21 14 - 36 U/L 07/09/2025 11:31 AM [facility] ALBUMIN 4.1 3.5 - 5.0 g/dL 07/09/2025 11:31 AM [facility] T BILI 0.6 0.2 - 1.3 mg/dL 07/09/2025 11:31 AM [facility] TOTAL PROTEIN 7.9 6.3 - 8.2 g/dL 07/09/2025 11:31 AM [facility] CALCIUM 8.2(L) 8.4 - 10.2 mg/dL 07/09/2025 11:31 AM [facility] ANION GAP 5.0(L) 6.0 - 16.0 mmol/L 07/09/2025 11:31 AM [facility] BUN/CREATININE RATIO 14 7 - 30 ratio 07/09/2025 11:31 AM [facility] A/G RATIO 1.1 0.9 - 2.3 07/09/2025 11:31 AM [facility] GLOBULIN 3.8 2.2 - 3.9 g/dL 07/09/2025 11:31 AM [facility] GFR, ESTIMATED >90 >60 07/09/2025 11:31 AM [facility] OSMOLALITY 277 273 - 304 mOsm/kg 07/09/2025 11:31 AM [facility] Blood Venipuncture / Unknown 07/09/2025 11:06 AM CDT 07/09/2025 11:09 AM CDT us Katy Galloway MD CHEMISTRY ORDERABLES Final Result [facility] [address] [place] [address], * XR RIBS BILATERAL WITH PA CHEST (06/18/2025 2:44 PM CDT) Anatomical Region Laterality Modality Chest, Rib Bilateral Radio Fluoroscop y Narrative 06/18/2025 3:14 PM CDT EXAMINATION: XR RIBS BILATERAL WITH PA CHEST INDICATION: c/o bilateral rib pain- worse with deep breathe, pain after lifting 50 lb. COMPARISON: CT scan of the chest, abdomen, and pelvis dated 09/01/2024. TECHNIQUE: Frontal view of the chest and multiple views of the bilateral ribs were performed. FINDINGS: No pneumothorax, pulmonary edema, or consolidative infiltrates. The heart is enlarged. There are postoperative changes of median sternotomy, pulmonic valve replacement, and left main pulmonary artery stent. No displaced fractures are identified about the bony thorax. There is S-shaped thoracolumbar scoliosis. 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 There may be an inferior endplate compression fracture of L1 versus artifactual appearance. Surgical clips in the right upper quadrant are consistent with prior cholecystectomy. IMPRESSION: 1. No acute cardiopulmonary process. 2. Cardiomegaly and postoperative changes of the heart. 3. No evidence of rib fracture bilaterally. 4. S shaped thoracolumbar scoliosis and possible inferior endplate compression fracture of L1 versus artifactual appearance. If the patient complains of low back pain, consider follow-up noncontrast CT scan of the lumbar spine for better characterization. ID INTERN Procedure Note Matteo Gan MD - 06/18/2025 EXAMINATION: XR RIBS BILATERAL WITH PA CHEST INDICATION: c/o bilateral rib pain- worse with deep breathe, pain afterlifting 50 lb. COMPARISON: CT scan of the chest, abdomen, and pelvis dated 09/01/2024. TECHNIQUE: Frontal view of the chest and multiple views of the bilateralribs were performed. FINDINGS: No pneumothorax, pulmonary edema, or consolidative infiltrates. The heartis enlarged. There are postoperative changes of median sternotomy,pulmonic valve replacement, and left main pulmonary artery stent. Nodisplaced fractures are identified about the bony thorax. There isS-shaped thoracolumbar scoliosis. There is rotatory levoscoliosis of thelumbar spine. There may be an inferior endplate compression fracture of [id number] artifactual appearance. Surgical clips in the right upper quadrantare consistent with prior cholecystectomy. IMPRESSION: 1. No acute cardiopulmonary process. 2. Cardiomegaly and postoperative changes of the heart. 3. No evidence of rib fracture bilaterally. 4. S shaped thoracolumbar scoliosis and possible inferior endplatecompression fracture of L1 versus artifactual appearance. If the patientcomplains of low back pain, consider follow-up noncontrast CT scan of thelumbar spine for better characterization. ID INTERN Jose Miguel Rios MD IM DIAGNOSTIC ORDERABLES Final Result from Last 3 Months Insurance [facility] Care Teams Switchboard Clerk Relationship Specialty Start Date End Date Hoa Fuller PA PCP - General Physician Invoicing Specialist 08/27/15 Ralph Perez MD [facility] [address] Oncology 03/16/17
--- OUTSIDE RECORDS SUMMARY | 2025-07-09 19:49 | XMS_ITS | Clinical Summary ---
Author Organization [facility] Address [address] [place] [address] Care Team Providers Care Returned Materials Inspector Name Role Phone Hoa Fuller Primary Care Provider [phone] Lissett Bertrand NP Unavailable [phone] Allergies Active Allergy Reactions Criticality Noted Date Comments Bupropion Unknown 04/28/2016 Iodinated Contrast Media Shortness of breath,Syncope,Dizz iness High 11/29/2011 Dizziness/Light Headed Iodine Syncope,Other (See comments) High 04/16/2018 Low heart rate Melatonin Shortness of breath High 11/09/2020 Metrizamide Dizziness Medium 02/01/2013 Mold Extracts Dizziness Low Penicillin G Nausea only,Other (See comments) Low 10/14/2020 Povidone-Iodine Other (See comments) Low 04/16/2018 Sulfamethoxazole-Trimetho prim Stomach upset,Other (See comments),Wheezing High 09/06/2016 Other reaction(s): GI Discomfort, Numbness Trichophyton Mentagrophytes Allergenic Extract Other (See comments) Low 05/29/2014 Passes out Passes out Passes out- Pt. Unsure of spelling/name Zolpidem Unknown 02/19/2009 Medications acetaminophen (TYLENOL) 325 mg tablet Take 2 tablets (650 mg total) by mouth every 4 (four) hours as needed for pain 30 tablet 08/22/20 20 Active traZODone (DESYREL) 50 mg tablet 11/09/19 21 Active fluticasone propionate (FLONASE) 50 mcg/actuation nasal spray Administer 2 sprays into affected nostril(s) daily 12/15/19 20 Active diphenhydrAMINE (BENADRYL) 25 mg capsule Take 1 tablet/capsule (25 mg total) by mouth 2 (two) times a day Active triazolam (HALCION) 0.25 mg tablet TAKE 1 TABLET BY MOUTH 1 HOUR BEFORE DENTAL APPOINTMENT 11/22/19 22 Active levETIRAcetam (KEPPRA) 500 mg tablet Take 1 tablet (500 mg total) by mouth 2 (two) times a day 60 tablet 11 03/21/20 23 Active LORazepam (Ativan) 1 mg tablet Take 0.5 tablets (0.5 mg total) by mouth 3 (three) times a day as needed for anxiety 20 tablet 10/25/19 24 Active levothyroxine (SYNTHROID) 200 mcg tablet Take 1 tablet (200 mcg total) by mouth daily before breakfast 11/02/19 24 Active hydrOXYzine (VISTARIL) 25 mg capsule Take 1 capsule (25 mg total) by mouth 3 (three) times a day as needed for anxiety 60 capsule 11/23/19 24 Active ARIPiprazole (ABILIFY) 2 mg tablet Take 1 tablet (2 mg total) by mouth daily Active albuterol HFA (PROVENTIL HFA,VENTOLIN HFA,PROAIR HFA) 90 mcg/actuation inhaler Inhale 2 puffs every 4 (four) hours as needed 09/28/20 23 Active meloxicam (MOBIC) 7.5 mg tablet Take 1 tablet (7.5 mg total) by mouth daily 12/13/19 24 Active ondansetron ODT (ZOFRAN-ODT) 4 mg disintegrating tablet DISSOLVE 1 TABLET IN MOUTH EVERY 6 HOURS NEEDED FOR NAUSEA AND VOMITING. ALLOW TABLET TO DISSOLVE ON THE TONGUE. 11/22/19 24 Active aspirin 81 mg chewable tabletIndications: S/P TOF (tetralogy of Fallot) repair,S/P surgical pulmonary valve replacement,Chest wall pain Take 1 tablet (81 mg total) by mouth daily 30 tablet 11 12/21/19 24 Active omeprazole (PriLOSEC) 40 mg capsuleIndications :Chest wall pain Take 1 capsule (40 mg total) by mouth daily 30 capsule 1 12/21/19 24 Active diclofenac sodium (VOLTAREN) 1 % gelIndications:Meg st wall pain Apply 2 g topically 4 (four) times a day as needed (as needed for chest wall pain) 350 g 1 12/21/19 24 Active ondansetron ODT (ZOFRAN-ODT) 4 mg disintegrating tabletIndications: nausea and vomiting Take 1 tablet (4 mg total) by mouth every 8 (eight) hours as needed for nausea or vomiting 20 tablet 05/03/20 24 Active hydrOXYzine (ATARAX) 25 mg tablet Take 1 tablet (25 mg total) by mouth every 8 (eight) hours as needed for itching 30 tablet 05/19/20 24 Active ondansetron (ZOFRAN) 4 mg tablet Take 1 tablet (4 mg total) by mouth every 8 (eight) hours as needed for nausea or vomiting 8 tablet 06/18/20 24 Active Active Problems Problem Noted Date Diagnosed Date Chest pain, unspecified type 06/18/2024 Seizure-like activity 03/20/2023 Vaginal bleeding 03/14/2023 Chest pain 03/12/2023 Type B blood, Rh positive 03/15/2021 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 pulmonary valve replacement 011 S/P TOF (tetralogy of Fallot) repair 01/04/1990 Encounters Date Type Department Care Team Description 07/01/2025 12:39 AM CDT - 07/01/2025 1:04 AM CDT [facility] [address] [place] [address] Marcelina Marin MD Chest pain, unspecified type (Primary Dx) Discharge Disposition: Discharge to home or self care from Last 3 Months Immunizations Immunization Administration Dates Next Due Influenza, Quadrivalent, Spl it, Preservative Free, Intramuscular 07/13/2021 Influenza, Unspecified 07/09/2023 Surgical History Surgery Date Site/Laterality Comments PALATOPLASTY Palatoplasty For Cleft Palate - (Added by TW Conv) MD HEMORRHOIDECTOMY INTERNAL RUBBER BAND LIGATIONS Hemorrhoidectomy - (Added by TW Conv) APPENDECTOMY CHOLECYSTECTOMY TETRALOGY OF FALLOT REPAIR 01/04/1990 Dr. Calabrese, [facility] RIGHT VENTRICULAR OUTFLOW TR ACT REPAIR 12/07/2006 Dr. José Glendale PULMONARY VALVE REPLACEMENT 09/09/2011 Dr. Aleman, [facility] Medical History Medical History Date Comments DiGeorge's syndrome DiGeorge syn drome - (Added by TW Conv) Chronic sinusitis Recurrent sinu sitis - (Added by TW Conv) Chronic viral hepatitis C (HCC) Chronic hepatitis C virus infection - (Added by TW Conv) Covid-19 Hypothyroidism Status post repair of tetral ogy of Fallot History of cardiac disorder - (Added by TW Conv) Seasonal allergies Obesity Pre-eclampsia, severe, with delivery 08/09/2021 S/P surgical pulmonary valve replacement 09/09/20 11 Family History Medical History Relation Name Comments Arrhythmia Brother pacemaker Heart attack Father Hypertension Father in 2019 Heart attack Mother Hypertension Mother Thyroid disease Mother Cancer Paternal Grandfather No Known Problems Sister Relation Name Status Comments Brother Alive Father Mother Paternal Grandfather Sister Alive Social History Tobacco Use Types Packs/Day Years Used Date Smoking Tobacco: Never Smokeless Tobacco: Never Tobacco Cessation:Counseling Given: No Alcohol Use Standard Drinks/Week Comments Not Currently 0 (1 standard drink = 0.6 oz pur e alcohol) social AUDIT-C Answer Date Recorded Q1: How often do you have a drink containing alc ohol? Never 03/12/2023 Average Number of Drinks Not on file 023 Frequency of Binge Drinking Not on file 01/2023 Hunger Vital Sign Answer Date Recorded Within the past 12 months, y ou worried that your food would run out before you got the money to buy more. Often true 03/20/20 23 Within the past 12 months, t he food you bought just didn't last and you didn't have money to get more. Often true 03/20/2023 Housing Stability Vital Sign Answer Carlos e Recorded In the last 12 months, was t here a time when you were not able to pay the mortgage or rent on time? Yes 03/20/2023 In the last 12 months, how many places have you lived? 2 03/20/2023 Unstable Housing in the Last Year Not on file 03/20/2023 Housing Stability Vital Sign Answer Carlos e Recorded In the last 12 months, was t here a time when you were not able to pay the mortgage or rent on time? Yes 03/20/2023 Number of Times Moved in the Last Year Not on fi le 03/20/2023 Homeless in the Last Year Not on file 2022 Personal Safety Answer Date Recorded Have you ever been in or are you currently in a harmful physical or emotional relationship or is someone making you feel afraid or unsafe? Denies 06/30/2025 Comments No Sex and Gender Information Value Date Recorded Sex Assigned at Not on file Legal Sex Female 9:19 AM [employer] Gender Identity Not on file Sexual Orientation Not on file Obstetrics History Para Term AB IAB SAB Ectopic Multiple Livin g Live Births 1 Date Outcome GA Total Labor Labor/2nd/3rd Weight Sex Type Anes PTL Bekah A1 A5 Name Clin Last Filed Vital Signs Vital Sign Reading Time Taken Comments Blood Pressure 144/83 07/01/2025 12:45 AM CDT Pulse 96 07/01/2025 12:45 AM CDT Temperature 37.1 C (98.8 F) 06/30/2025 8:44 PM CDT Respiratory Rate 15 07/01/2025 12:45 AM CDT Oxygen Saturation 98% 07/01/2025 12:45 AM CDT Inhaled Oxygen Concentration - - Weight 89.8 kg (198 lb) 06/30/2025 8:44 PM CDT Height 154.9 cm (5' 1) 06/30/2025 8:44 PM CDT Body Mass Index 37.41 06/30/2025 8:44 PM CDT Plan of Treatment Health Maintenance Due Date Last Done Comments Cervical Cancer Screening 1982 Depression Screening 1982 Regular Well Visit/Exam 18-64 2000 HPV Vaccines (1 - 3-dose SCDM series) 2009 Varicella Vaccines (2 of 2 - 13+ 2-dose series) 11/24/2016 10/27/2016, 10/27/2016 Breast Cancer Screening-Mammogram 07/25/2024 07/25/2023, 07/25/2023 Covid-19 Vaccine ( - season) 2025 03/19/2021, 02/19/2021 Influenza Vaccine (#1) 2025 , 07/09/2023, 06/23/2022, Additional history exists DTaP/Tdap/Td Vaccine (3 - Td or Tdap) 07/13/2031 07/13/2021, 10/27/2016 Hepatitis B Screening Completed 09/20/2011 Pneumococcal vaccine <65 Aged Out 02/17/2014 No longer eligible based on patient's age to complete this topic Hepatitis C Screening Completed 08/09/2016 , 06/04/2016, 12/18/2014, Additional history exists Procedures Procedure Name Priority Date/Time Associated Diagnosis Comments TROPONIN T HIGH-SENSITIVITY 2-HOUR Timed 06/30/2025 10:48 PM CDT XR CHEST 1 VIEW ED 06/30/2025 9:06 PM CDT ECG 12-LEAD STAT 06/30/2025 9:00 PM CDT EGFR STAT 06/30/2025 8:55 PM CDT DIFFERENTIAL AUTO STAT 06/30/2025 8:5 5 PM CDT TROPONIN T HIGH-SENSITIVITY SERIES (BASELINE, 2HR, 4HR, 6HR) STAT 06/30/2025 8:55 PM CDT COMPREHENSIVE METABOLIC PANEL STAT 06/30/2025 8:55 PM CDT CBC WITH AUTO DIFFERENTIAL STAT 06/30/2025 8:55 PM CDT SERUM HEPATITIS PANEL Routine 08/09/2016 11:04 AM CDT from Last 3 Months or Most Recently Relevant to Health Maintenance Results * Troponin T high-sensitivity 2-hour (06/30/2025 10:48 PM CDT) Trop T hs <6 <=14 ng/L Comment: Interpretive Data For further hscTnT resources including the diagnostic algorithm and an aid in interpretation, copy and paste this link: https://nrl.testcatalog.org/show/hsTrop Current Interpretive Data last revised 2020. Testing performed by: [facility], [address] [place] [address]., [id number] Trop T hs delta 0 ng/L JOELLE KRAMER Comment:Testing performed by : [facility], [address] [place] [address]., [address] Trop T hs interp Insignificant JOELLE Comment:Testing performed by : [facility], [address] [place] [address]., [address] Blood 06/30/2025 10:4 8 PM CDT 06/30/2025 10:50 PM CDT Marcelina Marin MD LAB BLOOD ORDERABLES Della barrett Result JOELLE [address] [facility] [place] [address] * XR Chest 1 Vw Portable (If patient hemodynamically UNstable or UNable to ambulate) (06/30/2025 9:06PM CDT) Anatomical Region Laterality Modality Body, Chest N/A Computed Radiogr aphy 06/30/2025 9:07 PM CDT Narrative 06/30/2025 9:15 PM CDT EXAM DESCRIPTION: XR CHEST 1 VIEW REASON FOR STUDY: chest pain Patient presents with complaints of chest pain, neck pain, shortness of breath, and headaches x 2 months TECHNIQUE: Portable upright AP view of the chest. COMPARISON: 06/18/2024 FINDINGS: LUNGS AND PLEURA: No focal opacity, large effusion, or pneumothorax identified. HEART/MEDIASTINUM: Trachea midline. [id number] cardiomegaly. BONES: Sternotomy wires. CHEST WALL: Unremarkable. UPPER ABDOMEN: Unremarkable. IMPRESSION: No acute abnormality identified. [id number]-[id number] cardiomegaly. THIS IS AN ELECTRONICALLY VERIFIED FINAL REPORT 06/30/2025 9:15 PM - Electronically signed by Jin Pelaez M.D. AR: SALVATORE Report ID: [id number] Reading Location: [id number] Procedure Note Jin Pelaez MD - 06/30/2025 EXAM DESCRIPTION: XR CHEST 1 VIEW REASON FOR STUDY: chest pain Patient presents with complaints of chest pain, neck pain, shortness of breath, and headaches x 2 months TECHNIQUE: Portable upright AP view of the chest. COMPARISON: 06/18/2024 FINDINGS: LUNGS AND PLEURA: No focal opacity, large effusion, orpneumothorax identified. HEART/MEDIASTINUM: Trachea midline. Nsar-pu-hpszemay cardiomegaly. BONES: Sternotomy wires. CHEST WALL: Unremarkable. UPPER ABDOMEN: Unremarkable. IMPRESSION: No acute abnormality identified. Kkkx-pg-swhyktcasbampkiceuvt. THIS IS AN ELECTRONICALLY VERIFIED FINAL REPORT 06/30/2025 9:15 PM - Electronically signed by Jin Pelaez M.D. AR: SALVATORE Report ID: [id number] Reading Location: [place] [address] Marcelina Marin MD IMG XR PROCEDURES Final R esult * ECG 12 lead (06/30/2025 9:00 PM CDT) Ventricular Rate EKG/Min 99 BPM [facility] Atrial Rate 99 BPM [facility] MD-Interval (MSEC) 158 ms [facility] QRS-Interval (MSEC) 136 ms [facility] QT-Interval (MSEC) 386 ms [facility] QTc 495 ms [facility] P [place] 34 degrees [facility] R [place] 69 degrees [facility] T [place] 74 degrees [facility] Diagnosis Normal sinus rhythm Right bundle branch block Abnormal ECG When compared with ECG of 12-JUN-2024 20:46, No significant change was found Confirmed by IVANA WALTERS M.D. ([id number]) on 07/01/2025 6:32:01 AM [facility] 06/30/2025 9:00 PM CDT 07/01/2025 6:32 AM CDT Marcelina Marin MD ECG ORDERABLES Final Res ult [facility] * Troponin T high-sensitivity series (baseline, 2hr, 4hr, 6hr) (06/30/2025 8:55 PM CDT) Trop T hs <6 <=14 ng/L Comment: Interpretive Data For further hscTnT resources including the diagnostic algorithm and an aid in interpretation, copy and paste this link: https://nrl.testcatalog.org/show/hsTrop Current Interpretive Data last revised 2020. Testing performed by: [facility], [address] [place] [address]., [address] Blood 06/30/2025 8:55 PM CDT 06/30/2025 9:04 PM CDT us Marcelina Marin MD LAB BLOOD ORDERABLES Della barrett Result JOELLE [address] [facility] Department [place] [address] * eGFR (06/30/2025 8:55 PM CDT) eGFR 88 >=60 mL/min/1. 73 m2 Comment: Interpretive Data Reference Interval Normal >/= 90 mL/min/1.73m2 Mildly decreased* 60 - 89 mL/min/1.73m2 Mildly to moderately decreased 45 - 59 mL/min/1.73m2 Moderately to severely decreased 30 - 44 mL/min/1.73m2 Severely decreased 15 - 29 mL/min/1.73m2 Kidney Failure < 15 mL/min/1.73m2 *Relative to young adult level Estimated glomerular filtration rate is determined by the 2020 CKD-EPI equation recommended by the National Kidney Foundation (A Unifying Approach to GFR Estimation: Recommendations of the NKF-ASK Task Force on Reassessing the Inclusion of Race in Diagnosing Kidney Disease, JASN 2020). The CKD-EPI equation should not be used for patients with unstable renal function and has not been validated in children and those over 70. Current interpretive data was last reviewed 2021. Testing performed by: [facility], [address] [place] [address]., [address] Blood 06/30/2025 8:55 PM CDT 06/30/2025 9:04 PM CDT us Marcelina Marin MD LAB BLOOD ORDERABLES Della barrett Result [facility] [address] [facility] Department [place] [address] * Differential, auto (06/30/2025 8:55 PM CDT) Neutrophil abs 3.12 1.50 - 6.50 K/cumm Comment:Testing performed by : [address] [address] Imm gran abs 0.01 0.00 - 0.10 K/cumm JOELLE Comment:Testing performed by : [address] [address] Lymphocyte abs 0.93 0.80 - 3.30 K/cumm JOELLE Comment:Testing performed by : [address] [address] Monocyte abs 0.60 0.20 - 0.80 K/cumm JOELLE Comment:Testing performed by : [address] [address] Eosinophil abs 0.11 0.00 - 0.50 K/cumm JOELLE Comment:Testing performed by : [address] [address] Basophil abs 0.03 0.00 - 0.10 K/cumm JOELLE Comment:Testing performed by : [address] [address] Neutrophil pct 65.0 % JOELLE Comment: Interpretive Data Percent cell count reference ranges are not reported, since discordance with absolute values may lead to misinterpretation of CBC data. Current Interpretive Data was last revised on 2018. Testing performed by: [address] [address] Imm gran pct 0.2 % JOELLE Comment: Interpretive Data Percent cell count reference ranges are not reported, since discordance with absolute values may lead to misinterpretation of CBC data. Current Interpretive Data was last revised on 2018. Testing performed by: [address] [address] Lymphocyte pct 19.4 % JOELLE Comment: Interpretive Data Percent cell count reference ranges are not reported, since discordance with absolute values may lead to misinterpretation of CBC data. Current Interpretive Data was last revised on 2018. Testing performed by: [address] [address] Monocyte pct 12.5 % JOELLE Comment: Interpretive Data Percent cell count reference ranges are not reported, since discordance with absolute values may lead to misinterpretation of CBC data. Current Interpretive Data was last revised on 2018. Testing performed by: [address] [address] Eosinophil pct 2.3 % JOELLE Comment: Interpretive Data Percent cell count reference ranges are not reported, since discordance with absolute values may lead to misinterpretation of CBC data. Current Interpretive Data was last revised on 2018. Testing performed by: [address] [address] Basophil pct 0.6 % JOELLE Comment: Interpretive Data Percent cell count reference ranges are not reported, since discordance with absolute values may lead to misinterpretation of CBC data. Current Interpretive Data was last revised on 2018. Testing performed by: [address] [address] Blood 06/30/2025 8:55 PM CDT 06/30/2025 9:04 PM CDT us Marcelina Marin MD LAB BLOOD ORDERABLES Della barrett Result JOELLE [address] [facility] [place] [address] * (ABNORMAL) CBC with auto differential (06/30/2025 8:55 PM CDT) WBC 4.80 3.80 - 9.90 K/cumm Comment:Testing performed by : [address] [address] Hgb 12.3 11.9 - 15.5 g/dL JOELLE Comment:Testing performed by : [address], [address] Hct 35.5(L) 35.6 - 45.5 % JOELLE Comment:Testing performed by : [address] [address] Plt 93(L) 150 - 400 K/cumm JOELLE Comment:Testing performed by : [address], [address] MPV 11.8 9.1 - 12.3 fL JOELLE Comment:Testing performed by : [address], [address] RBC 3.90 3.90 - 5.20 M/cumm JOELLE Comment:Testing performed by : [address], [address] MCV 91.0 81.3 - 96.4 fL JOELLE Comment:Testing performed by : [address], [address] MCH 31.5 27.1 - 33.3 pg JOELLE Comment:Testing performed by : [address], [address] MCHC 34.6 32.3 - 35.7 g/dL JOELLE Comment:Testing performed by : [address], [address] RDW CV 13.6 11.1 - 14.9 % JOELLE Comment:Testing performed by : [address], [address] RDW SD 44.7 35.7 - 48.1 fL JOELLE Comment:Testing performed by : [address] [address] NRBC abs 0.00 0.00 - 0.01 K/cumm JOELLE Comment:Testing performed by : [address], [address] Blood Venous blood specimen / Unknown 06/30/2025 8:55 PM CDT 06/30/2025 9:04 PM CDT Marcelina Marin MD LAB BLOOD ORDERABLES Della barrett Result [facility] [address] [facility] Department [place] [address] * Comprehensive metabolic panel (06/30/2025 8:55 PM CDT) Sodium 139 135 - 145 mmol/L Comment:Testing performed by : [address] [address] Potassium, pl 4.4 3.3 - 4.9 mmol/L JOELLE Comment:Testing performed by : [address] [address] Chloride 102 97 - 110 mmol/L JOELLE Comment:Testing performed by : [address] [address] CO2 25 22 - 32 mmol/L JOELLE Comment:Testing performed by : [address] [address] Anion gap 12 2 - 15 mmol/L JOELLE Comment:Testing performed by : [address] [address] BUN 17 6 - 25 mg/dL JOELLE Comment:Testing performed by : [address] [address] Creatinine 0.85 0.60 - 1.10 mg/dL JOELLE Comment:Testing performed by : [address] [address] Glucose 93 70 - 199 mg/dL JOELLE Comment: Interpretive Data Fasting glucose >/= 126 mg/dl is diagnostic for diabetes. Fasting is defined as no caloric intake for at least 8 hours. Fasting glucose between 100 mg/dl to 125 mg/dl is diagnostic of prediabetes. In a patient with classic symptoms of hyperglycemia or hyperglycemic crisis, a random glucose >/= 200 mg/dl is diagnostic for diabetes. In the absence of unequivocal hyperglycemia, results should be confirmed by repeat testing. The classification and Diagnosis of Diabetes Diabetes Care 202; 46: S19-S40. Current interpretive data was last revised 2022. Testing performed by: [address] [address] Calcium 8.8 8.5 - 10.3 mg/dL JOELLE Comment:Testing performed by : [address] [address] Bilirubin, total 0.5 0.1 - 1.2 mg/dL JOELLE Comment:Testing performed by : [address] [address] Protein, pl 8.2 6.5 - 8.5 g/dL JOELLE Comment:Testing performed by : [address] [address] Albumin 4.4 3.5 - 5.0 g/dL JOELLE Comment:Testing performed by : [address] [address] Alk phos 74 40 - 130 Units/L JOELLE Comment:Testing performed by : [address] [address] ALT 13 7 - 45 Units/L JOELLE Comment:Testing performed by : [address] [address] AST 21 10 - 45 Units/L [facility] Comment:Testing performed by : [address] [address] Blood 06/30/2025 8:55 PM CDT 06/30/2025 9:04 PM CDT Marcelina Marin MD LAB BLOOD ORDERABLES Della barrett Result [facility] [address] [facility] [place] [address] * (ABNORMAL) Serum Hepatitis panel (08/09/2016 11:04 AM CDT) HBV surface ag Negative NEG CDR HISTORICAL RESULTS HCV ab Positive(A) NEG CDR HISTORICAL RESULTS Comment: Interpretive Data Positive results should be confirmed by a molecular method. If positive, a second separately collected sample should be submitted for Hepatitis C Virus (HCV) RNA Detection and Quantitation by Real-Time Reverse Inspector Filter Tip-PCR (RT-PCR). Current interpretive data was last revised on 2016. HBV core ab, IgM Negative NEG CDR HISTORICAL RESULTS Comment: Interpretive Data If test is reported as Equivocal, new sample should be drawn for testing. Current interpretive data was last revised on 2008. HAV ab, IgM Negative NEG CDR HISTORICAL RESULTS Comment: Interpretive Data If test is reported as Equivocal, new sample should be drawn in two weeks for testing. Current interpretive data was last revised on 2008. Serum 08/09/2016 11:0 4 AM CDT us Hailee Harry NP LAB BLOOD ORDERABLES nal Result CDR HISTORICAL RESULTS from Last 3 Months or Most Recently Relevant to Health Maintenance Insurance [facility] [place] [address] [facility] MEDICARE ADVANTAGE [facility] Address: [address] [address] [place] [address] [employer] MEDICARE ADVANTAGE [facility] Address: [address] [address] [place] [address] [facility] Address: [address] [address] [place] [address] [employer] Advance Directives For more information, please contact: [phone] * Full Code (Latest Code Status on File) Date Activated Date Inactivated Comments 11/01/2023 9:34 AM 11/02/2023 5:10 PM * Full Code Date Activated Date Inactivated Comments 03/20/2023 3:15 AM 03/21/2023 3:46 PM * Full Code Date Activated Date Inactivated Comments 03/12/2023 7:35 PM 03/14/2023 8:42 PM Care Teams Returned Materials Inspector Relationship Specialty Start Date End Date Hoa Fuller PA [facility] [place], [place] [address] PCP - General 12/27/16 Lissett Bertrand NP [address] [place], [place] [address] Nurse Practitioner Gynecology 12/06/21
[2025-07-09 20:17] VITALS: BP 142/90; PULSE 106; RESP 14; TEMP 36.9; O2SAT 99
[2025-07-09 20:39] LABS: Hematocrit 38.1 % (37.0-47.0); Hemoglobin 12.9 g/dL (12.0-15.0); Immature Granulocyte Percent A 0.4 % (0-0.5); Immature Platelet Fraction Pct 7.1 % (0.9-11.2); Lymphocytes Absolute Auto 0.69 K/mm3 (0.9-3.2); Mean Corpuscular HGB Conc 33.9 g/dl (32-36); Mean Corpuscular Hemoglobin 30.9 pg (26-34); Mean Corpuscular Volume 91.4 fl (80-100); Nucleated Red Blood Cells Absolute Auto 0.000 K/mm3 (0.0-0.012); Nucleated Red Blood Cells Perc 0.0 % (0.0-0.2); Platelet Count Result 87 k/mm3 (150-375); Red Blood Count 4.17 M/mm3 (4.2-5.4); White Blood Count 4.7 K/mm3 (4.5-10.0)
[2025-07-09 20:47] LABS: Alanine Aminotransferase 15 U/L (6-35); Albumin Level 4.3 g/dL (3.5-5.1); Alkaline Phosphatase 71 U/L (38-126); Anion Gap 10 mmol/L (4-12); Aspartate Amino Transferase 25 U/L (14-36); Bilirubin,Total 0.6 mg/dL (0.2-1.3); Blood Urea Nitrogen 9 mg/dL (7-17); Calcium 8.6 mg/dL (8.4-10.2); Carbon Dioxide 28 mmol/L (22-30); Chloride 101 mmol/L (98-107); Estimated CRCL calculation 74 ml/min; Estimated Glomerular Filt Rate > 60; Glucose 91 mg/dL (65-110); Lipase 73 U/L (23-300); Potassium 3.8 mmol/L (3.4-5.0); Sodium 139 mmol/L (137-145); Total Protein 8.4 g/dL (6.3-8.2)
[2025-07-09 20:49] LABS: INR 1.1; Partial Thromboplastin Time 30.4 Seconds (22.3-36.8); Prothrombin Time 14.2 Seconds (11.1-14.7)
[2025-07-09 20:59] LABS: Troponin I < 0.012 ng/mL (0.000-0.034)
[2025-07-09 21:30] VITALS: PULSE 88
[2025-07-09] MEDS: ASPIRIN 81 MG CHEWABLE TABLET 324 MG PO (21:32)
--- NOTE | 2025-07-09 21:46 | ED.CHESTPAIN ---
HPI - Chest Pain General Chief Complaint: Chest Pain Stated Complaint: CP-- seen at [facility] ER earlier and sent home Time Seen by Provider: 07/09/25 21:25 Source: patient Mode of arrival: ambulatory Limitations: no limitations History of Present Illness HPI narrative: This is a 44-year-old female with history of prior valvular replacement in stents who presents the ED for chest pain. Patient states that at 6:00 p.m. tonight, she had onset of sternal chest pain while she was lifting her daughter. On further discussion with the patient, she believes that the pain actually started a few weeks ago but worsened today. She has had some left upper quadrant pain and some nausea. Related Data Home Medications ?Medication ?Instructions ?Recorded ?Confirmed ?Last Taken ?Type levothyroxine 175 mcg tablet mcg 07/09/25 Unknown History Allergies Allergy/AdvReac Type Severity Reaction Status Date / Time Iodinated Contrast Media Allergy Other Verified 07/09/25 21:32 Review of Systems Review of Systems: Gen.: Denies fevers or chills Eyes: Denies eye pain or visual change ENT: Denies congestion Respiratory: As per HPI CV: As per HPI GI: As per HPI denies burning, urgency, frequency or hematuria Musculoskeletal: Denies back pain or muscle pain Neuro: Denies numbness, tingling, weakness or focal weakness Skin: Denies rash Except as documented, all other systems reviewed and negative Exam Narrative: APPEARANCE: No acute distress, nontoxic, resting in bed EYES: EOMI HEENT: Normocephalic, atraumatic, OMM RESPIRATORY: No respiratory distress Clear to auscultation bilaterally with no rhonchi wheezing or rales. CARDIOVASCULAR: Regular rate and rhythm, 3/6 systolic murmur Chest wall: Well-healed sternotomy scar. Mild tenderness palpation over the left midclavicular mid ribs. ABDOMINAL: Soft, nontender, nondistended, no rebound or guarding MUSCULOSKELETAl: Moves all extremities. No clubbing, cyanosis or edema. NEURO: Awake and alert. Following commands, speech normal, no focal deficits SKIN:: Warm, dry. No rashes lesions or abrasions PSYCHIATRIC: Normal affect/mood, Course Vital Signs Vital signs: Vital Signs Temperature 98.5 F 07/09/25 20:17 Pulse Rate 106 H 07/09/25 20:17 Respiratory Rate 14 07/09/25 20:17 Blood Pressure 142/90 H 07/09/25 20:17 Pulse Oximetry 99 07/09/25 20:17 Oxygen Delivery Room Air 07/09/25 20:17 Temperature 98.5 F 07/09/25 20:17 Pulse Rate 88 07/09/25 21:30 Respiratory Rate 14 07/09/25 20:17 Blood Pressure 142/90 H 07/09/25 20:17 Pulse Oximetry 99 07/09/25 20:17 Oxygen Delivery Room Air 07/09/25 20:17 MDM - Chest Pain MDM Narrative Medical decision making narrative: 44-year-old female presenting for chest pain. On initial evaluation, patient was in mild distress, afebrile, hemodynamically stable. She is slightly tachycardic to 106. She did have a systolic murmur but this was likely baseline based on patient's surgical history. Lungs were clear. She was thrombocytopenic to 87 remaining CBC without significant abnormalities. CMP without significant abnormalities. Troponin negative. Repeat troponin negative. Chest x-ray showed no acute process. Patient was given Toradol, Lidoderm with near resolution of her pain. She is also given Zofran for nausea with resolution of those symptoms as well. Suspect that patient does have an atypical chest pain given cardiac history. She does follow with cardiology at [place]. She was advised call her mallet cutter in the morning to schedule a appointment as she has not been seen by them in 3 years now. Patient was agreeable to this plan. Given strict return precautions. Heart score 2 Differential Diagnosis Differential diagnosis: Likely stable angina, unstable angina pectoris, atypical chest pain, costochondritis and chest pain Medical Records Data Attestation: I reviewed the patient's medical records. Lab Data Attestation: I reviewed the patient's lab results. 07/09/25 20:30 07/09/25 20:30 Labs: Lab Results 07/09/25 07/09/25 Range/Units 20:30 22:53 WBC 4.7 (4.5-10.0) K/mm3 RBC 4.17 L (4.2-5.4) M/mm3 Hgb 12.9 (12.0-15.0) g/dL Hct 38.1 (37.0-47.0) % MCV 91.4 (80-100) fl MCH 30.9 (26-34) pg MCHC 33.9 (32-36) g/dl RDW 13.2 (11.5-14.5) % Plt Count 87 L (150-375) k/mm3 MPV 11.3 H (7.4-10.4) fl Immature Gran % (Auto) 0.4 (0-0.5) % Neut % (Auto) 69.8 (45.5-73.1) % Lymph % (Auto) 14.6 L (18.3-44.2) % [place] % (Auto) 10.8 H (2.6-8.5) % Eos % (Auto) 3.6 (0-4.4) % Baso % (Auto) 0.8 (0.2-1.2) % Lymph # (Auto) 0.69 L (0.9-3.2) K/mm3 [place] # (Auto) 0.5 (0.1-0.6) K/mm3 Eos # (Auto) 0.2 (0-0.3) K/mm3 Baso # (Auto) 0.0 (0.0-0.1) K/mm3 Abs Immat Gran (auto) 0.02 (0.00-0.031) K/mm3 Absolute Neuts (auto) 3.3 (1.3-6.7) K/mm3 Absolute Nucleated RBC 0.000 (0.0-0.012) K/mm3 Nucleated RBC % 0.0 (0.0-0.2) % % Immature Plt Fraction 7.1 (0.9-11.2) % PT 14.2 (11.1-14.7) Seconds INR 1.1 APTT 30.4 (22.3-36.8) Seconds Sodium 139 (137-145) mmol/L Potassium 3.8 (3.4-5.0) mmol/L Chloride 101 (98-107) mmol/L Carbon Dioxide 28 (22-30) mmol/L Anion Gap 10 (4-12) mmol/L BUN 9 (7-17) mg/dL Creatinine 0.86 (0.7-1.0) mg/dL Estim Creat Clear Calc 74 ml/min Estimated GFR > 60 (59 - ) Glucose 91 (65-110) mg/dL Calcium 8.6 (8.4-10.2) mg/dL Total Bilirubin 0.6 (0.2-1.3) mg/dL AST 25 (14-36) U/L ALT 15 (6-35) U/L Alkaline Phosphatase 71 (38-126) U/L Troponin I < 0.012 < 0.012 (0.000-0.034) ng/mL Total Protein 8.4 H (6.3-8.2) g/dL Albumin 4.3 (3.5-5.1) g/dL Lipase 73 (23-300) U/L Imaging Data Attestation: I personally reviewed and interpreted this imaging study as follows: Radiologist's impression: Impressions Chest X-Ray 07/09/25 20:52 IMPRESSION: 1. No acute cardiopulmonary disease. ECG Data EKG #1: Attestation: I personally reviewed and interpreted this ECG as follows: ECG completion date: 07/09/25 ECG completion time: 20:20 Interpretation: Sinus tachycardia rate of 101, normal axis, right bundle-branch block, no acute ST or T-wave changes EKG #2: Attestation: I personally reviewed and interpreted this ECG as follows: ECG completion date: 07/09/25 ECG completion time: 22:52 Interpretation: Normal sinus rhythm rate of 85, normal axis, intraventricular conduction delay, no acute ST or T-wave changes Discharge Plan Discharge Clinical Impression: Pleurisy Patient Disposition: Home Condition: Stable Instructions: Antibiotic Form, Chest Pain (ED) Additional Instructions: please call your mallet cutter tomorrow to schedule a follow-up appointment. He may take Tylenol and ibuprofen for pain. Return to the ED for any new or worsening symptoms. Patient Language: Vietnamese Prescriptions: No Action levothyroxine 175 mcg tablet Follow-up/Referrals: PHYSICIAN NOT ON STAFF,NONSTAFF [Primary Care Provider]
[2025-07-09] MEDS: KETOROLAC 30 MG/ML VIAL (*BKC) IV PUSH (21:50)
[2025-07-09] MEDS: LIDOCAINE 5% PATCH 1 PATCH TRANSDERM (21:50)
[2025-07-09] MEDS: ONDANSETRON INJ 4 MG/2 ML VIAL IV PUSH (21:50)
--- OUTSIDE RECORDS SUMMARY | 2025-07-09 22:01 | XMS_ITS | Clinical Summary ---
Author Organization [facility] Address [address] [place] [address] Care Team Providers Care Treasury Specialist Name Role Phone Hoa Fuller PA-C Primary Care Provider [phone] Emeli Fernández APRN-CUSTOM BOW MAKER Unavailable [phone] Hoa Fuller PA-C Unavailable [phone] Source Comments [facility],non-owned Affiliates and Associated Physician Practices is amultiple site organization consisting of ambulatory clinics and hospital sitesin [place], [place], [place] and [place]. This disclosure is being madepursuant to the Care Everywhere program and may not contain all information available regarding this patient. Last updated 18.[facility] iconDial Allergies Active Allergy Reactions Criticality Noted Date Comments Sulfamethoxazole W-Trimethoprim GI Discomfort,Numbness,W heezing High 09/06/2016 Contrast-Iodinated Agents For Ct/Other Other High 02/01/2013 Melatonin Shortness of Breath High 11/09/2020 Metrizamide Dizziness Medium 02/01/2013 Trichophyton Other 05/29/2014 Passes out Penicillin G Other Low 10/14/2020 Povidone Iodine Other 04/16/2018 Zolpidem Unknown 02/19/2009 Medications * This document contains information received from the source organization and may not represent a complete record from that organization. * Be aware that medications may not be up to date on this document. Alwaysverify current medications with the patient. ibuprofen (Motrin) 200 MG tablet Take 1 (one) tablet by mouth every 6 hours as needed for Pain Active aspirin (Aspirin) 81 MG chew tablet Take 1 (one) tablet by mouth once daily 30 tablet 11 12/21/19 24 Active levETIRAcetam (Keppra) 1000 MG tabletIndications: Seizure Take 1 (one) tablet by mouth 2 times daily for 30 days Reasons: Seizure 60 tablet 1 06/04/20 24 Active acetaminophen (Tylenol) 500 MG tablet Take 2 (two) tablets by mouth every 4 hours as needed for Fever or Pain Maximum allowable Acetaminophen amount = 4 Grams (4000 mg) / 24 hours. Active famotidine (Pepcid) 20 MG tablet Take 1 (one) tablet by mouth every 12 hours 10 tablet 06/28/20 24 Active diphenhydrAMINE (Benadryl) 25 MG capsule Take 1 (one) capsule by mouth every 6 hours as needed for Itching 20 capsule 08/31/20 24 Active hydrOXYzine HCl (Atarax) 25 MG tabletIndications: MIRNA (generalized anxiety disorder) Take 1 (one) tablet by mouth 4 times daily as needed 120 tablet 3 10/11/19 25 Active phenazopyridine (Pyridium) 100 MG tablet Take 1 (one) tablet by mouth 3 times daily as needed for Pain 6 tablet 12/12/19 25 Active Additional Information Patient not taking.Reported on 02/05/2025 levothyroxine (Synthroid) 150 MCG tabletIndications: Acquired hypothyroidism Take 1 (one) tablet by mouth daily before breakfast 90 tablet 02/07/20 25 Active methocarbamol (Robaxin) 500 MG tablet Take 1 (one) tablet by mouth every 6 hours as needed for Muscle Spasms 30 tablet 02/11/20 25 Active LORazepam (Ativan) 0.5 MG tabletIndications: MIRNA (generalized anxiety disorder) Take 1 tablet by mouth twice daily as needed for anxiety 60 tablet 05/09/20 25 Active Active Problems Patient Care Coordination No te Formatting of this note migh t be different from the original. NIPT - low risk - female 03/16 Enrolled in the diaper program. Diapers given. 08/03/21 Problem Noted Date Diagnosed Date Dysuria 12/08/2024 Other chest pain 10/17/2024 Seizure 05/22/2024 Panic attack 05/22/2024 Pain of left upper extremity 12/01/2023 Adjustment disorder with mixed anxiety and depre ssed mood 03/24/2023 Postablative hypothyroidism 10/26/2015 Overview (07/13/2021): Documentation in chart of Graves disease w/ ablation, pt unsure of dx. Pt denies hx ablation or surgery. 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 - Pt declined amnio Need to discuss w/ peds if sending BMP w/ cord blood is recommended due to risk of hypocalcemia Anxiety states 03/14/2013 Overview (07/13/2021): Previously on medications which were discontinued due to . EPDS elevated at 12; at increased risk for PP depression based on hx. Started zoloft 50mg daily on 04/21/21, mood improving Tetralogy of Fallot s/p repair 10/09/1981 Resolved Problems Problem Noted Date Diagnosed Date Resolved Date Left against medical advice 10/17/2024 02/05/2025 Strain of left shoulder 12/01/2023 07/0 12/2023 Fall 10/30/2023 04/10/2024 Rib pain 10/30/2023 04/10/2024 Closed head injury 10/30/2023 Other chest pain 08/08/2023 04/10/2024 Suicidal ideation 03/22/2023 03/24/2023 Rib pain 01/31/2022 07/17/2023 Rib injury 01/31/2022 07/17/2023 Non-reassuring heart t ones complicating , antepartum 08/06/2021 07/17/2023 [place] isoimmunization during 08/03/2021 07/17/2023 Overview (08/03/2021): Anti-Fya antibody - Titer ordered 08/03 heart rate deceleratio ns affecting management of mother 07/28/2021 08/03/2021 Leakage of amniotic fluid 07/27/2021 Gestational hypertension 07/13/202106/2023 Overview (07/13/2021): Dx while inpatient 06/2021 PIH labs wnl, 24h urine protein 296mg Weekly labs, BP checks, testing Delivery at 37wks Obesity 05/13/2021 04/10/2024 Overview (05/13/2021): Pre- BMI 36.5 - Recommend limiting weight gain to 11-20 lbs in Trichomoniasis 05/13/2021 07/17/2023 Overview (05/13/2021): Positive 01/2021, s/p treatment INGE neg 03/2021 B12 deficiency 05/13/2021 06/22/2021 Overview (05/13/2021): Previously received monthly B12 injections w/ hematology, stopped 01/2020 - B12 wnl on 03/24/21 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 Overview (07/13/2021): Serologies sent 04/08, pt treated empirically for HSV w/ 10d of valtrex HSV-2 IgG positive 04/2021 Ulcerated lesion identified on exam at OSH 07/11, treated w/ valtrex - Plan for suppression at 36wks Cramping affecting , antepartum 04/27/2021 05/13/2021 Pelvic pain affecting pregna ncy in second trimester, antepartum 04/15/2021 05/13/2021 Vaginal pain 04/08/2021 05/13/2021 LGSIL on Pap smear of cervix 04/06/2021 04/10/2024 Overview (05/13/2021): LSIL w/ +HPV Needs colposcopy Counseled pt on 03/31/21 Cervical insufficiency durin g , antepartum 03/15/2021 07/17/2023 Overview (07/13/2021): Ethibond cerclage, knot at 12 o'clock - Placed 04/06/21 Cerclage removed 07/05/21 due to contractions and bleeding ANCS 07/03-07/04 Supervision of high-risk pre gnancy of elderly multigravida 03/05/2021 07/17/2023 Overview (07/13/2021): INGE: [facility] Dated by 10wk PNL: B+/ab-, RI, RPR/HIV/HepB- - GC/CT-, trich+, INGE- - Pap LSIL/HPV+ 03/24/21 - Urine cx neg - GCT 105 - Genetics: NIPT low risk (did not test for 22q11.2) - Imm: S/p COVID vaccine x 2, Tdap and flu 07/13 - GBS positive - PP: Considering /desires Nexplanon Hx of delivery, currently 03/05/2021 07/17/2023 Overview (05/13/2021): Hx PTD at 23 weeks Left arm swelling 02/09/2021 03/24/2021 Left elbow pain 02/09/2021 03/24/2021 Chest pain 07/02/2020 05/13/2021 Dysmenorrhea 06/05/2020 03/24/2021 Non-recurrent acute serous o titis media of left ear 03/06/2020 05/11/2021 Hep C w/o coma, chronic 08/23/2019 10/0 06/2023 Overview (05/13/2021): Hx of chronic hep C, treated w/ Ari - HCV quant negative on 03/02/16 and again 6/16/21 Tetralogy of Fallot 08/23/2019 07/17/20 23 Overview (07/13/2021): Has care w/ [facility] Cardiology (Dr. Stefan Moore) - plan for new appt w/ Dr. Jackson (has rescheduled multiple times, now scheduled 08/2021) Hx: - Repair in 1998 - Reoperation in December 2006 for residual right ventricular outflow tract gradiant - Pulmonary artery stent placed in 2008 for severe left pulmonary stenosis - Pulmonary valve replacement with a 29 mm pericardial [place] valve in 2011 (complicated by Serratia wound infection) Last visit on 01/21/21 - Echo reviewed: t rivial PI & mild PS w/ peak gradient of 24 mm Hg, reassuring - Completed preconception counseling w/ patient & her mom. S he is overall at mild increased risk of adverse cardiac morbidity from (WHO Class II) & that is not prohibitive. If she were to become , she would need more frequent monitoring. EKG 03/15/21 - sinus rhythm; normal axis; RBBB; nonspecific T-wave abnormality; no significant change compared to 01/28/21 TTE 05/19/21 - EF 55% Echo 07/05/21 - EF 50-55%; pulmonic valve poorly visualized, but no significant stenosis based on peak gradient 11mmHg - Plan for ampicillin in labor for GBS ppx and SBE ppx. Recommend telemetry during labor and for 24h PP. Does not need assisted 2nd stage. echo 06/04 wnl Atherosclerosis of aorta 06/20/201804/2023 Overview (08/08/2019): 05.13.19 CT Abdomen & Pelvis Atherosclerotic normal-sized aorta Not mentioned in most recent XR/exam. 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 Would prefer early epidural due to cardiac status. Unclear if TCP would be responsive to steroids. 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 Discussed that any plt count >50 is safe for vaginal delivery or C/S. Plt have been stable during and they anticipate them to remain stable throughout . Potential for dilutional thrombocytopenia in 3rd trimester - can send pt back to hematology for reevaluation if this occurs. Discussed plt transfusion and IVIG as possible options to increase plt if needed closer to delivery. 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 Graves' disease 05/01/2015 04/10/2024 Pain in joint, ankle and foot 10/25/2013 05/29/2014 Pain in joint, shoulder region 10/25/2013 05/29/2014 Hemorrhoid 08/27/2013 05/13/2021 Menorrhagia 06/07/2013 05/19/2015 Paresthesia 05/06/2013 06/07/2013 Hypocalcemia 05/02/2013 05/11/2021 Hypokalemia 05/02/2013 05/11/2021 Recurrent major depressive d isorder, in partial remission 03/01/2013 05/13/2021 Panic disorder 03/01/2013 05/13/2021 Low back pain 02/15/2013 05/13/2021 UTI (urinary tract infection) 02/15/2013 05/27/2013 Contact dermatitis and other eczema, due to unspecified cause 02/05/2013 04/06/2021 Esophagitis 02/01/2013 06/01/2016 Cervical cerclage suture pre sent in second trimester 07/07/2021 Heart disease in mother comp licating 07/17/2023 Encounters Date Type Department Care Team Description 07/03/2025 9:16 PM CDT - 07/04/2025 12:39 AM CDT Emergency ER at [address] [address] Zen Regalado MD Chest pain, unspecified type Discharge Disposition: Home or Self Care 07/03/2025 Travel 05/29/2025 9:28 PM CDT - 05/30/2025 5:47 AM CDT Emergency ER at [address] [address] Shadia Lechuga MD MIRNA (generalized anxiety disorder) (Primary Dx); Chest pain, unspecified type Discharge Disposition: Home or Self Care 05/29/2025 Travel 05/09/2025 Refill [facility] [address] [phone] Hoa Fuller PA-C Refill Request 04/15/[address] [phone] Mercedes Barker PA-C Refill Request from Last 3 Months Immunizations Immunization Administration Dates Next Due Covid Moderna primary monova lent 12+ yr 0.5mL 03/19/2021,02/19/2021 FLU VACCINE TRI IIV3 SPLIT P F IM (FLUVIRIN) 08/29/2014,07/16/2013 INFLUENZA VACCINE 07/09/2023, 0,07/25/2017,2015,07/18/2015,07/09/2013,07/09/2012,0 06/09/2011 INFLUENZA VACCINE, QUADR. (F LUZONE; FLULAVAL; FLUARIX; AFLURIA QUADRIVALENT; 6MO+), 0.5 ML (IIV4) 07/17/2023,06/23/2022,07/13/2021,2019,07/18/2015 MMR 10/27/2016 MMR/VARICELLA 10/27/2016,10/27/2016 PNEUMOCOCCAL PPSV23 02/17/2014 TDAP (7yrs+) 08/10/2021(Deferred: Patient Condition),07/13/2021,10/27/2016 VARICELLA 10/27/2016,10/27/2016 Family History Medical History Relation Name Comments CAD (Coronary Artery Disease) Father Gout Father Hyperlipidemia Father Hypertension Father Cancer - Breast Maternal Aunt 1 Cancer - Breast Maternal Aunt 2 Hyperlipidemia Mother Hypertension Mother Thyroid Disease Mother Cancer - Colon Paternal Grandmother Relation Name Status Comments Brother Alive Pacemaker Father Maternal Aunt 1 Maternal Aunt 2 Alive Maternal Grandfather Maternal Grandmother Mother Paternal Grandfather (Age 92) Tr aumatic Brain Injury from MVA Paternal Grandmother Sister Alive Social History Tobacco Use Types Packs/Day Years Used Date Smoking Tobacco: Never Smokeless Tobacco: Never Tobacco Cessation:Counseling Given: Not Answered Alcohol Use Standard Drinks/Week Comments Not Currently 0 (1 standard drink = 0.6 oz pur e alcohol) AUDIT-C Answer Date Recorded Q1: How often do you have a drink containing alcohol? Never 05/29/2025 Q2: How many drinks containi ng alcohol do you have on a typical day when you are drinking? Patient does not drink Q3: How often do you have si x or more drinks on one occasion? Never 05/29/2025 Overall Financial Resource Strain (CARDIA) Answe r Date Recorded How hard is it for you to pa y for the very basics like food, housing, medical care, and heating? Somewhat hard 06/02/2024 PHQ-2 Answer Date Recorded Patient Health Questionnaire-2 Score 2 02/05/2025 [facility] Occupat ional Health - Occupational Stress Questionnaire Answer Date Recorded Do you feel stress - tense, restless, nervous, or anxious, or unable to sleep at night because your mind is troubled all the time - these days? Rather much 06/02/2024 Hunger Vital Sign Answer Date Recorded Within the past 12 months, y ou worried that your food would run out before you got the money to buy more. Sometimes true Within the past 12 months, t he food you bought just didn't last and you didn't have money to get more. Sometimes true PRAPARE - Transportation Answer Date Re corded In the past 12 months, has l ack of transportation kept you from medical appointments or from getting medications? No 05/10 In the past 12 months, has l ack of transportation kept you from meetings, work, or from getting things needed for daily living? No 06/02/2024 Housing Stability Vital Sign Answer Carlos e Recorded In the last 12 months, was t here a time when you were not able to pay the mortgage or rent on time? No 06/02/2024 In the last 12 months, how many places have you lived? 1 06/02/2024 In the last 12 months, was t here a time when you did not have a steady place to sleep or slept in a jail (including now)? No 06/02/2024 Comments No Sex and Gender Information Value Date Recorded Sex Assigned at Not on file Legal Sex Female 5:35 AM USABILITY SPECIALIST Gender Identity Not on file Sexual Orientation Not on file Last Filed Vital Signs Vital Sign Reading Time Taken Comments Blood Pressure 135/90 07/04/2025 12:05 AM CDT Pulse 82 07/04/2025 12:05 AM CDT Temperature 37 C (98.6 F) 07/03/2025 8:36 PM CDT Respiratory Rate 19 07/04/2025 12:05 AM CDT Oxygen Saturation 95% 07/04/2025 12:05 AM CDT Inhaled Oxygen Concentration 21% 06/03/2024 8 :00 PM CDT Weight 89.8 kg (198 lb) 07/03/2025 8:36 PM CDT Height 154.9 cm (5' 1) 07/03/2025 8:36 PM CDT Body Mass Index 37.41 07/03/2025 8:36 PM CDT Plan of Treatment Health Maintenance Due Date Last Done Comments HPV VACCINE (1 - Risk 3-dose SCDM series) 2009 MEDICARE AWV CALENDAR YEAR 2024 09/10/2024, 07/17/2023, 12/09/2021, Additional history exists COVID-19 VACCINE ( - season) 2025 03/19/2021, 02/19/2021 INFLUENZA VACCINE (#1) 2025 , 07/09/2023, 06/23/2022, Additional history exists LIPID TESTING 07/02/2025 07/02/2020, 05/09, 02/17/2014, Additional history exists MAMMOGRAM 07/25/2025 07/25/2023, 07/25/2023 PAP with HPV 03/24/2026 03/24/2021, 04/06/2021, 10/30/2019, Additional history exists SCREENING FOR DIABETES 07/03/2028 , 05/29/2025, 12/15/2024, Additional history exists DTAP/TDAP/TD VACCINES (3 - Td or Tdap) 07/13/2031 07/13/2021, 10/27/2016 ZOSTER VACCINE (1 of 2) 2032 PNEUMOCOCCAL VACCINE Aged Out 02/17/2014 No long er eligible based on patient's age to complete this topic HIV SCREENING Completed 03/30/2022, 06/09, 03/24/2021, Additional history exists HEPATITIS C SCREENING Completed 07/17/2023 , 03/24/2021, 03/02/2016, Additional history exists DEPRESSION SCREENING Completed 10/11/2024, 04/10/2024, 10/07/2023, Additional history exists HEPATITIS B VACCINE Discontinued HIB VACCINE Aged Out No longer eligi ble based on patient's age to complete this topic MENINGOCOCCAL (Group B) VACCINE SHARED DECISION-MAKING Aged Out No longer eligible based on patient's age to complete this topic MENINGOCOCCAL GROUPS A/C/Y/W VACCINE Aged Out No longer eligible based on patient's age to complete this topic Goals Goal Patient Goal Type Associated Problems Recent Progress Patient-Stated? Author Weight < 90.719 kg (200 lb) Weight 89.8 kg (198 lb)(07/03/2025 8:36 PM CDT) No Emeli Fernández, EXPORT CLERK-CUSTOM BOW MAKER Procedures Procedure Name Priority Date/Time Associated Diagnosis Comments TROPONIN-I HIGH SENSITIVE REFLEX 1HOUR Timed 07/03/2025 10:50 PM CDT XR CHEST 1VW PORTABLE STAT 07/03/2025 10:15 PM CDT Chest pain, unspecified type TROPONIN-I HIGH SENSITIVE BASELINE + 1HR STAT 07/03/2025 9:39 PM CDT COMPREHENSIVE METABOLIC PANEL STAT 07/03/2025 9:39 PM CDT CBC W AUTO DIFFERENTIAL STAT 07/03/2025 9:39 PM CDT EKG 12-LEAD STAT 07/03/2025 8:31 PM CDT Chest pain, unspecified type CARDIAC EKG ORDER 06/02/2025 3:1 3 PM CDT TROPONIN-I HIGH SENSITIVE REFLEX 1HOUR Timed 05/30/2025 12:27 AM CDT XR CHEST 1VW PORTABLE STAT 05/29/2025 10:32 PM CDT Chest pain, unspecified type LIPASE BLOOD STAT 05/29/2025 10:03 PM CDT AMYLASE BLOOD STAT 05/29/2025 10:03 PM CDT TROPONIN-I HIGH SENSITIVE BASELINE + 1HR STAT 05/29/2025 10:03 PM CDT CK BLOOD STAT 05/29/2025 10:03 PM CDT COMPREHENSIVE METABOLIC PANEL STAT 05/29/2025 10:03 PM CDT CBC W AUTO DIFFERENTIAL STAT 05/29/2025 10:03 PM CDT EKG 12-LEAD STAT 05/29/2025 8:09 PM CDT Chest pain, unspecified type MAMMO BILAT DIAGNOSTIC W BRIDGETT Routine 07/25/2023 9:07 AM CDT Mass of right breast, unspecified quadrant HIV-1 ANTIBODY MEDICARE WELLNESS Routine 03/30/2022 3:22 PM CDT Screening for human immunodeficiency virus HEPATITIS C RNA QUANTITATIVE Routine 03/24/2021 2:01 PM CDT Supervision of high-risk of elderly multigravida PAP IG LB+HPV APTIMA Routine 03/24/2021 2:01 PM CDT Supervision of high-risk of elderly multigravida LIPID PROFILE Routine 05/25/2016 6:54 AM CDT Mixed hyperlipidemia from Last 3 Months or Most Recently Relevant to Health Maintenance Results * TROPONIN-I HIGH SENSITIVE REFLEX 1HOUR (07/03/2025 10:50 PM CDT) Only the most recent of2 resultswithin the time period is included. Troponin I High Sensitive <3 <=14 ng/L 07/03/2025 11:19 PM CDT [facility] Delta Troponin I HS 07/03/2025 11:19 PM CDT [facility] Comment:Result exceeds linea rity range. A delta value is unable to be calculated. Blood BLOOD SPECIMEN / Unknown Venipuncture / Unknown 07/03/2025 10:50 PM CDT 07/03/2025 10:55 PM CDT us Marycarmen Frey EXPORT CLERK-CUSTOM BOW MAKER LAB - CHEMISTRY ORDER GAL Final Result [facility] [address] [place], [place] [address] * XR CHEST 1VW PORTABLE (07/03/2025 10:15 PM CDT) Only the most recent of2 resultswithin the time period is included. Anatomical Region Laterality Modality Chest Computed Radiogr aphy 07/04/2025 11:4 3 AM CDT Impressions 07/04/2025 11:44 AM CDT IMPRESSION: Cardiomegaly > Interpreting Provider: Felipe Alejandra MD on 07/04/2025 11:44 AM Narrative 07/04/2025 11:44 AM CDT XR CHEST 1VW PORTABLE INDICATION: R07.9: Chest pain, unspecified type. COMPARISON: 05/29/2025 FINDINGS: The heart size is enlarged. The patient is status post median sternotomy. No consolidation or pleural effusion is present. Procedure Note Felipe Alejandra MD - 07/04/2025 XR CHEST 1VW PORTABLE INDICATION: R07.9: Chest pain, unspecified type. COMPARISON: 05/29/2025 FINDINGS: The heart size is enlarged. The patient is status post mediansternotomy. No consolidation or pleural effusion is present. IMPRESSION: Cardiomegaly > Interpreting Provider: Felipe Alejandra MD on 07/04/2025 11:44 AM Marycarmen ERAZO DIAGNOSTIC IMAGING OR DERABLES Final Result * TROPONIN-I HIGH SENSITIVE BASELINE + 1HR (07/03/2025 9:39 PM CDT) Only the most recent of2 resultswithin the time period is included. Troponin I High Sensitive <3 <=14 ng/L 07/03/2025 10:17 PM CDT [facility] Blood BLOOD SPECIMEN / Unknown Venipuncture / Unknown 07/03/2025 9:39 PM CDT 07/03/2025 9:49 PM CDT Marycarmen Frey APRN-CUSTOM BOW MAKER LAB - CHEMISTRY ORDER GAL Final Result [facility] [address] [place] [address], [facility] * (ABNORMAL) CBC W AUTO DIFFERENTIAL (07/03/2025 9:39 PM CDT) Only the most recent of2 resultswithin the time period is included. WBC 4.4 4.0 - 10.7 x10E9/L 07/03/2025 10:09 PM CDT [facility] RBC Count 3.93 3.90 - 5.20 x10E12/L 07/03/2025 10:09 PM CDT [facility] Hemoglobin 12.7 11.9 - 15.8 g/dL 07/03/2025 10:09 PM CDT [facility] Hematocrit 36.2 34.8 - 46.1 % 07/03/2025 10:09 PM CDT [facility] MCV 92.1 80.0 - 98.0 fL 07/03/2025 10:09 PM CDT [facility] MCH 32.3 26.7 - 33.6 pg 07/03/2025 10:09 PM CDT [facility] MCHC 35.1 31.7 - 36.3 g/dL 07/03/2025 10:09 PM CDT [facility] RDW-CV 13.2 11.3 - 14.8 % 07/03/2025 10:09 PM CDT [facility] Platelet Count 85(L) 150 - 420 x10E9/L 07/03/2025 10:09 PM CDT [facility] MPV 11.3 7.8 - 11.4 fL 07/03/2025 10:09 PM CDT [facility] Neutrophil % 65.6 41.0 - 74.0 % 07/03/2025 10:09 PM CDT [facility] Lymphocyte % 16.2(L) 17.0 - 47.0 % 07/03/2025 10:09 PM CDT [facility] Monocyte % 12.6(H) 3.0 - 11.0 % 07/03/2025 10:09 PM CDT [facility] Eosinophil % 4.5 0.0 - 7.0 % 07/03/2025 10:09 PM CDT [facility] Basophil % 0.9 0.0 - 1.6 % 07/03/2025 10:09 PM CDT [facility] Immature Granulocytes % 0.2 0.0 - 1.0 % 07/03/2025 10:09 PM CDT [facility] Neutrophil Absolute 2.91 1.60 - 7.50 x10E9/L 07/03/2025 10:09 PM CDT [facility] Lymphocyte Absolute 0.72(L) 1.00 - 4.40 x10E9/L 07/03/2025 10:09 PM CDT [facility] Monocyte Absolute 0.56 0.15 - 1.00 x10E9/L 07/03/2025 10:09 PM CDT [facility] Eosinophil Absolute 0.20 0.00 - 0.60 x10E9/L 07/03/2025 10:09 PM CDT [facility] Basophil Absolute 0.04 0.00 - 0.13 x10E9/L 07/03/2025 10:09 PM CDT [facility] Blood BLOOD SPECIMEN / Unknown Venipuncture / Unknown 07/03/2025 9:39 PM CDT 07/03/2025 9:49 PM CDT us Marycarmen Frey EXPORT CLERK-CUSTOM BOW MAKER LAB - HEMATOLOGY ORDE FORTINO Final Result [facility] [address] * (ABNORMAL) COMPREHENSIVE METABOLIC PANEL (07/03/2025 9:39 PM CDT) Only the most recent of2 resultswithin the time period is included. [facility] Signature Glucose 95 70 - 125 mg/dL 07/03/2025 10:10 PM CDT [facility] Sodium 143 136 - 145 mmol/L 07/03/2025 10:10 PM CDT [facility] Potassium 4.0 3.4 - 5.1 mmol/L 07/03/2025 10:10 PM CDT [facility] Chloride 104 98 - 107 mmol/L 07/03/2025 10:10 PM CDT [facility] CO2 27 22 - 29 mmol/L 07/03/2025 10:10 PM CDT [facility] Calcium 8.70 8.4 - 10.2 mg/dL 07/03/2025 10:10 PM CDT [facility] Anion Gap 12 6 - 16 mmol/L 07/03/2025 10:10 PM CDT [facility] BUN 11.6 9.8 - 20.1 mg/dL 07/03/2025 10:10 PM CDT [facility] Creatinine 0.92 0.57 - 1.11 mg/dL 07/03/2025 10:10 PM CDT [facility] Alkaline Phosphatase 67 40 - 150 U/L 07/03/2025 10:10 PM CDT [facility] ALT 15 7 - 30 U/L 07/03/2025 10:10 PM CDT [facility] AST 23 5 - 34 U/L 07/03/2025 10:10 PM CDT [facility] Protein Total 7.5 6.4 - 8.3 gm/dL 07/03/2025 10:10 PM CDT [facility] Albumin 4.0 3.1 - 4.5 gm/dL 07/03/2025 10:10 PM CDT [facility] Globulin Total 3.5 2.6 - 4.0 gm/dL 07/03/2025 10:10 PM CDT [facility] Albumin/Globulin Ratio 1.1 0.9 - 1.6 07/03/2025 10:10 PM CDT [facility] Bilirubin Total 0.4 0.2 - 1.2 mg/dL 07/03/2025 10:10 PM CDT [facility] eGFR 80(L) >90 mL/min/1.7 3m2 07/03/2025 10:10 PM CDT [facility] Comment:Estimated Glomerular Filtration Rate (eGFR) calculated using the CKD-EPI Creatinine Equation (2020), per the National Kidney Foundation and [employer] recommendations. Blood BLOOD SPECIMEN / Unknown Venipuncture / Unknown 07/03/2025 9:39 PM CDT 07/03/2025 9:49 PM CDT us Marycarmen Frey EXPORT CLERK-CUSTOM BOW MAKER LAB - CHEMISTRY ORDER GAL Final Result [facility] [address] [place] [address], [facility] * EKG 12-Lead (07/03/2025 8:31 PM CDT) Only the most recent of2 resultswithin the time period is included. Ventricular Rate 90 BPM [facility] Atrial Rate 90 BPM [facility] P-R Interval 136 ms [facility] QRS Duration ms 142 ms [facility] Q-T Interval ms 388 ms [facility] QTC Calculation (Bezet) 474 ms [facility] Calculated P [place] 38 degrees [facility] Calculated R [place] 75 degrees [facility] Calculated T [place] 74 degrees [facility] Interpretation EKG Normal sinus rhythm Right bundle branch block Abnormal ECG Confirmed by MD MONICA, SALLIE M ([id number]) on 07/04/2025 2:41:17 PM [facility] 07/03/2025 8:31 PM CDT 07/04/2025 2:41 PM CDT us Zen Regalado MD ECG ORDERABLES Edited Result - Final Performing Organization Address City/[facility]/ZIP Co de Phone Number [facility] * CARDIAC EKG ORDER (06/02/2025 3:13 PM CDT) Narrative 06/02/2025 3:13 PM CDT Ordered by an unspecified provider. Scanned Document CARDIAC SERVICES ORDERABLES Fin al Result * LIPASE BLOOD (05/29/2025 10:03 PM CDT) Lipase 22 8 - 78 U/L 05/29/2025 10:57 PM CDT [facility] Blood BLOOD SPECIMEN / Unknown Venipuncture / Unknown 05/29/2025 10:03 PM CDT 05/29/2025 10:09 PM CDT us Shadia Lechuga MD LAB - CHEMISTRY ORDERABL ES Final Result [facility] [address] * CK BLOOD (05/29/2025 10:03 PM CDT) CK 95 29 - 168 U/L 05/29/2025 10:57 PM CDT [facility] Blood BLOOD SPECIMEN / Unknown Venipuncture / Unknown 05/29/2025 10:03 PM CDT 05/29/2025 10:09 PM CDT us Shadia Lechuga MD LAB - CHEMISTRY ORDERABL ES Final Result Performing Organization Address [facility] Co de Phone Number [facility] [address] * AMYLASE BLOOD (05/29/2025 10:03 PM CDT) Amylase 35 25 - 125 U/L 05/29/2025 10:57 PM CDT [facility] Blood BLOOD SPECIMEN / Unknown Venipuncture / Unknown 05/29/2025 10:03 PM CDT 05/29/2025 10:09 PM CDT Shadia Lechuga MD LAB - CHEMISTRY ORDERABL ES Final Result Performing Organization Address [facility] de Phone Number [facility] [address] * MAMMO BILAT DIAGNOSTIC W BRIDGETT (07/25/2023 9:07 AM CDT) Anatomical Region Laterality Modality Breast Bilateral Mammography 07/25/2023 4:14 PM CDT Narrative 07/25/2023 4:16 PM CDT DIGITAL BILATERAL DIAGNOSTIC MAMMOGRAMS WITH CAD CORRELATION PREVIOUS EXAM DATE: Prior mammogram 2011. INDICATIONS: Pain and palpable soft tissue fullness lateral right breast reported by the patient. TECHNIQUE: Standard views right and left breast, MLO and cc with additional 90 degree lateral view and exaggerated craniocaudal view. 3-D tomography. Spot compression views right breast, MLO and cc. TISSUE DENSITY: Scattered fibroglandular densities FINDINGS: There is redemonstration of an area of asymmetric parenchymal density inferior subareolar right breast, present previously and grossly unchanged. No mammographic abnormality identified within the lateral aspect of the right breast on this examination to correlate with the area of clinical concern indicated by the patient. Ultrasound examination performed this morning shows no suspicious sonographic abnormality laterally to correlate with the area of clinical concern described by the patient. ASSESSMENT: Benign finding, BI-RADS 2 RECOMMENDATIONS: Bilateral screening mammogram 1 year Manage palpable findings on clinical basis. The above findings should be correlated with physical examination. A relatively non-specific study should not preclude additional evaluation if suspicious findings are present clinically. An [employer] Certified Facility > Interpreting Provider: Aleks Acuña MD on 07/25/2023 4:16 PM Hoa Fuller PA-C MAMMO ORDERABLES Final Resul t * HIV-1 ANTIBODY MEDICARE WELLNESS (03/30/2022 3:22 PM CDT) HIV1/2 Ab + P24 Ag NON-REACTI VE/NEGATIV E NON-REACTI VE/NEGATIV E 03/30/2022 6:01 PM CDT [facility] Blood BLOOD SPECIMEN / Unknown Venipuncture / Unknown 03/30/2022 3:22 PM CDT 03/30/2022 3:23 PM CDT Hoa Fuller PA-C LAB - SEROLOGY ORDERABLES Fi nal Result Performing Organization Address City/State/[facility] Co de Phone Number [facility] [address] * (ABNORMAL) PAP IG LB+HPV APTIMA (03/24/2021 2:01 PM CDT) Diagnosis Comment(A) 03/30/2021 5:08 PM CDT [facility] ([facility]) Comment: EPITHELIAL CELL ABNORMALITY. LOW GRADE SQUAMOUS INTRAEPITHELIAL LESION (LSIL). Specimen Adequacy Comment 021 5:08 PM CDT [facility] ([facility]) Comment: Satisfactory for evaluation. Endocervical and/or squamous metaplastic cells (endocervical component) are present. Performed by Comment 03/30/2021 5:08 PM CDT [facility] ([facility]) Comment:Martha Haley, Cyto technologist (ASCP) Electronically Signed by Comment 03/30/2021 5:08 PM CDT [facility] ([facility]) Comment:Jackie Aguero MD, Pathologist Comment . 03/30/2021 5:08 PM CDT [facility] ([facility]) Pathologist Provided ICD10 Comment 03/30/2021 5:08 PM CDT [facility] ([facility]) Comment:R87.612 Note Comment 03/30/2021 5:08 PM CDT [facility] ([facility]) Comment: The Pap smear is a screening test designed to aid in the detection of premalignant and malignant conditions of the uterine cervix. It is not a diagnostic procedure and should not be used as the sole means of detecting cervical cancer. Both false-positive and false-negative reports do occur. IGLBP CPT Code Automation Comment 03/30/2021 5:08 PM CDT [facility] ([facility]) Comment: This liquid based ThinPrep(R) pap test was screened with the use of an image guided system. Human papillomavirus Aptima Positive(A ) Negative 03/30/2021 5:08 PM CDT [facility] ([facility]) Comment: This nucleic acid amplification test detects fourteen high-risk HPV types (16,18,31,33,35,39,45,51,52,56,58,59,66,68) without differentiation. Pathology/Cytolo gy ENTIRE ENDOCERVIX / Unknown Collection / Unknown 03/24/2021 2:01 PM CDT 03/24/2021 2:18 PM CDT Narrative [facility] ([facility]) - 03/30/2021 5:08 PM CDT Performed at: 01 - [address] [id number] Telephoto Installer: Jackie Aguero MD, Phone: [phone] Performed at: 02 - [address] [id number] Telephoto Installer: Halle Baez MD, Phone: [phone] Performed at: 03 - [address] [id number] Telephoto Installer: Halle Baez MD, Phone: [phone] Specimen Comment: Source.............Endocervix Specimen Comment: No. of containers..01 ThinPrep Vial us Samantha Castellanos MD LAB - PATHOLOGY/CYTOLOGY ORDERAB LES Final Result [facility] ([facility]) [address] [place] [address] * HEPATITIS C RNA QUANTITATIVE (03/24/2021 2:01 PM CDT) [facility] Hepatitis C Virus Quantitation HCV Not Detected IU/mL 03/26/2021 9:06 PM CDT [facility] ([facility]) Test Information Comment 03/26/20 9:06 PM CDT [facility] ([facility]) Comment:The quantitative ran ge of this assay is 15 IU/mL to 100 million IU/mL. Blood BLOOD SPECIMEN / Unknown Venipuncture / Unknown 03/24/2021 2:01 PM CDT 03/24/2021 2:17 PM CDT Narrative [facility] ([facility]) - 03/26/2021 9:06 PM CDT Performed at: [address] [place] [id number] Telephoto Installer: Zuleyma Hendrickson MD, Phone: [phone] Samantha Castellanos MD LAB - CHEMISTRY ORDERABLES Final Result [facility] ([facility]) [address] [place] [address] * (ABNORMAL) LIPID PROFILE (05/25/2016 6:54 AM CDT) [facility] Cholesterol 159 <200 mg/dL 05/25/2016 8:01 AM CDT [facility] Triglycerides 111 <150 mg/dL 05/25/2016 8:01 AM CDT [facility] HDL Cholesterol 32(L) >40 mg/dL 05/25/2016 8:01 AM CDT [facility] Chol HDL Ratio 5.0 1.0 - 6.0 05/25/2016 8:01 AM CDT [facility] LDL Calculated 105 65 - 130 mg/dL 05/25/2016 8:01 AM CDT [facility] VLDL Calculated 22 10 - 40 mg/dL 05/25/2016 8:01 AM CDT [facility] Blood BLOOD SPECIMEN / Unknown 05/25/2016 6:54 AM CDT 05/25/2016 7:03 AM CDT Narrative [facility] - 05/25/2016 8:01 AM CDT Lipid Profile Comment: CHOLESTEROL LEVEL..................CLINICAL INTERPRETATION LESS THAN 200 MG/DL..............................DESIRABLE 200-239 MG/DL..............................BORDERLINE HIGH GREATER THAN 240 MG/DL................................HIGH LDL-CHOLESTEROL LEVEL..............CLINICAL INTERPRETATION LESS THAN 100 MG/DL................................OPTIMAL 100-129 MG/DL.................................NEAR OPTIMAL GREATER THAN 160 MG/DL...........................HIGH RISK HDL RISK LEVEL GREATER THEN 60 MG/DL............................DECREASED 40-60 MG/DL........................................AVERAGE LESS THAN 40 MG/DL...............................INCREASED TRIGLYCERIDE LEVEL..................CLINICAL INTERPRETATION LESS THAN 150 MG/DL...............................DESIRABLE 150-199 MG/DL...............................BORDERLINE HIGH 200-499 MG/DL..........................................HIGH GREATER THAN 500..................................VERY HIGH THE NATIONAL CHOLESTEROL EDUCATION PROGRAM HAS SET THE ABOVE GUIDELINES (REFERANCE VALUES) FOR CHOLESTEROL AND HDL. RISK ASSOCIATED WITH CHOLESTEROL/HDL RATIOS RISK....................MALE RATIO.............FEMALE RATIO 1/2 AVERAGE.................<3.4.......................<3.3 LOW RISK.................... 4.0 ...................... 3.8 AVERAGE..................... 5.0 ...................... 4.5 2X AVERAGE.................. 9.5 ...................... 7.0 3X AVERAGE...................>23........................>11 us Hoa Fuller PA-C LAB - CHEMISTRY ORDERABLES F inal Result Performing Organization Address City/State/[facility] Co de Phone Number [facility] [address] [place] [address], [facility] from Last 3 Months or Most Recently Relevant to Health Maintenance Insurance [facility] MANAGED MEDICARE [place] [id number] [facility] MANAGED MEDICARE ADV [place] [facility] MANAGED MEDICARE [place] [id number] [facility] MANAGED MEDICARE [place] [id number] Advance Directives Documents on File Type Date Recorded Patient Bolt Cutter Expl anation Adv Directive/Living Will/POA 10/16/2013 10:57 AM * Full Code (Latest Code Status on File) Date Activated Date Inactivated Comments 06/01/2024 10:59 PM 06/04/2024 5:59 PM * Full Code Date Activated Date Inactivated Comments 03/22/2023 5:57 PM 03/24/2023 12:59 PM * Full Code Date Activated Date Inactivated Comments 03/22/2023 5:06 PM 03/22/2023 5:57 PM * Full Code Date Activated Date Inactivated Comments 08/09/2021 3:47 AM 08/11/2021 6:26 PM * Full Code Date Activated Date Inactivated Comments 08/06/2021 6:06 PM 08/09/2021 3:47 AM Care Teams Treasury Specialist Relationship Specialty Start Date End Date Hoa Fuller PA-C [address] [place] [address] PCP - General Physician Play Leader 03/11/13 Hoa Fuller PA-C [address] [place] [address] PCP - [facility] 09/08/23 Emeli Fernández APRN-RIAN [address] [place], [place] [address] Nurse Practitioner 10/23/20
--- OUTSIDE RECORDS SUMMARY | 2025-07-09 22:01 | XMS_ITS | Clinical Summary ---
Author Organization [facility] Address [facility] [place] [address] Care Team Providers Care Box Icer Name Role Phone Hoa Fuller PA-C Primary Care Provider [phone] Allergies Active Allergy Reactions Criticality Noted Date Comments Bupropion Unknown 04/28/2016 Iodine Syncope 04/16/2018 Iodine Other (see comment) 07/25/2021 Low heart rate Iodinated Contrast Media Dizziness Medium 02/01/2013 Melatonin Shortness of Breath High 11/09/2020 Penicillin G Nausea Only,Other (see comment) Low 10/14/2020 Sulfamethoxazole-Trimet hoprim GI Upset,Other (see comment) High 09/06/2016 Trichophyton Other (see comment) 05/29/2014 Passes out- Pt. Unsure of spelling/name Zolpidem Unknown 02/19/2009 Medications acetaminophen (TYLENOL) 325 MG tablet Take 2 tablets (650 mg total) by mouth every 6 (six) hours as needed for Pain. Active diphenhydrAMINE (BENADRYL) 25 MG capsule Take 1 capsule (25 mg total) by mouth nightly as needed. Active levothyroxine (SYNTHROID) 200 MCG tablet Take 1 tablet (200 mcg total) by mouth every morning. Active omeprazole (PRILOSEC) 20 MG capsule Take 1 capsule (20 mg total) by mouth daily. Active albuterol sulfate HFA 108 (90 Base) MCG/ACT inhaler Inhale 2 puffs into the lungs every 4 (four) hours as needed. 09/28/2023 Active ARIPiprazole (ABILIFY) 2 MG tablet Take 1 tablet (2 mg total) by mouth daily. 09/11/2023 Active aspirin EC (ECOTRIN) 81 MG tablet Take 1 tablet (81 mg total) by mouth daily. Active pantoprazole EC (PROTONIX) 40 MG tablet Take 1 tablet (40 mg total) by mouth daily. 30 tablet 05/10/2024 Active LORazepam (ATIVAN) 1 MG tabletIndicatio ns:Anxiety Take 1 tablet (1 mg total) by mouth every 8 (eight) hours as needed for Anxiety. 12 tablet 05/10/2024 Active Active Problems Problem Noted Date Diagnosed Date Retained products of conception after miscarriag e ([facility]) 03/05/2023 Overview (03/05/2023): Added automatically from request for surgery [id number] ([facility]) 03/05/2023 Missed ([facility]) 02/24/2023 History of delivery, currently in third trimester ([facility]) 07/11/2021 Chest pain 07/02/2020 Hep C w/o coma, chronic ([facility]) 2018 Tetralogy of Fallot ([facility]) 08/23/2019 Atherosclerosis of aorta 06/20/2018 Overview (08/23/2019): Overview: 02.18.19 CT Abdomen & Pelvis Atherosclerotic normal-sized aorta Not mentioned in most recent XR/exam. CT Chest: 10.09.17 Atherosclerotic disease aorta and branch vessels Palpitations 01/10/2017 Atrophic gastritis 10/09/2016 Overview (08/23/2019): Atrophic gastritis, without mention of hemorrhage Hemorrhage of rectum and anus 10/09/2016 Overview (08/23/2019): Hemorrhage of rectum and anus Irritable colon 10/09/2016 Overview (08/23/2019): Irritable bowel syndrome Ulcer of anus and rectum 10/09/2016 Overview (08/23/2019): Ulcer of anus and rectum Thrombocytopenia 07/26/2016 GERD without esophagitis 06/05/2016 Obesity (BMI 30.0-34.9) 06/05/2016 Recurrent major depressive disorder 06/05/2016 Iron deficiency anemia due to chronic blood loss 09/01/2015 Vitamin B12 deficiency (dietary) anemia 07/28/20 15 Overview (08/23/2019): Overview: IMO Update 01/07/2017 DiGeorge syndrome ([facility]) 08/29/2014 Hypothyroidism 05/29/2014 Panic disorder 03/01/2013 Contact dermatitis and other eczema, due to unspecified cause 02/05/2013 Resolved Problems Problem Noted Date Diagnosed Date Resolved Date Chest pain 04/17/2018 08/23/2019 Assessment & Plan (04/19/2018 12:47 PM CDT): Patient was admitted for chest pain. While in the ED Troponin negative x2, elevated D-dimer and history of unilateral arm swelling this week, EKG with non-specific T wave changes, chronic Right bundle branch block, personal history of tetralogy of fallot s/p repair While in the hospital patient received heparin for anticoagulation until V/Q scan (contrast to dye so no CTA) and upper extremity US revealed low likelihood of clot. Consult to cardiology recommended echocardiogram which was reassuring. Recommend follow up with your regular pediatric critical care nurse in 1 month. Positive test ([facility]) 04/17/2018 08/23/2019 Assessment & Plan (04/19/2018 12:43 PM CDT): New Transvaginal ultrasound showed no intrauterine , Quant b-hcg negative. Pt recently started on control and denies intercourse x5 yrs. Passed a large blood clot while on period here, could be source of elevated d-dimer. Consider further investigation outpatient with SOLE LEATHER CUTTING MACHINE OPERATOR for uterine bleeding and hormone management. Nausea with vomiting 10/09/2016 019 Overview (08/23/2019): Nausea with vomiting Hemorrhoid 08/27/2013 08/23/2019 Hypocalcemia 05/02/2013 08/23/2019 Hypokalemia 05/02/2013 08/23/2019 Immunizations Immunization Administration Dates Next Due Fluzone 6 Months+ Quad (0.5 mL Prefilled Syringe) 07/02/2020 Influenza (Generic) 07/25/2017, 6,07/18/2015,2013,07/16/2013,07/09/2013,07/09/2012,0 06/09/2011 Influenza Adult (Generic) 07/18/2015,08/29/2014, 07/16/2013 MMR (Generic) 10/27/2016,10/27/2016 Pneumococcal (Pneumovax 23) 02/17/2014 Tdap (Generic) 10/27/2016 Varicella Vaccine 10/27/2016,10/27/2016 Family History Medical History Relation Comments Heart Disease Father Relation Status Comments Father Social History Tobacco Use Types Packs/Day Years Used Date Smoking Tobacco: Never Smokeless Tobacco: Never Tobacco Cessation:Counseling Given: Not Answered Comments:Vapes 1/day Alcohol Use Standard Drinks/Week Comments No 0 (1 standard drink = 0.6 oz pur e alcohol) Comments No Sex and Gender Information Value Date Recorded Sex Assigned at Not on file Legal Sex Female 11:19 PM CDT Gender Identity Not on file Sexual Orientation Not on file Last Filed Vital Signs Vital Sign Reading Time Taken Comments Blood Pressure 126/96 07/18/2024 1:14 PM CDT Pulse 101 07/18/2024 1:14 PM CDT Temperature 36.8 C (98.3 F) 07/18/2024 1:14 PM CDT Respiratory Rate 24 07/18/2024 1:14 PM CDT Oxygen Saturation 97% 07/18/2024 1:14 PM CDT Inhaled Oxygen Concentration - - Weight 86.2 kg (190 lb) 07/18/2024 1:14 PM CDT Height 154.9 cm (5' 1) 07/18/2024 1:14 PM CDT Body Mass Index 35.9 07/18/2024 1:14 PM CDT Plan of Treatment Health Maintenance Due Date Last Done Comments Annual Physical 1985 Hepatitis B Vaccines (1 of 3 - 19+ 3-dose series) 2001 HPV Vaccines (1 - Risk 3-dose SCDM series) 2009 Pneumococcal Vaccine: Pediatrics (0 to 5 Years) and At-Risk Patients (6 to 49 Years) (2 of 2 - PCV) 02/17/2015 02/17/2014 ASCVD LDL 07/02/2021 07/02/2020 PHQ-2 (Physician [place]) 10/09/2024 COVID-19 Vaccine (3 - season) 2025 03/19/2021, 02/19/2021 Mammogram Screening 07/25/2025 07/25/2023 Cervical Cancer Screening Pap Smear (Age 30 to 64) Every 3 Years 03/15/2026 03/15/2023, 03/15/2023, 07/17/2021, Additional history exists Cervical Cancer Screening Pap with HPV Testing (Age 30 to 64) Every 5 Years 03/15/2028 03/15/2023, 07/17/2021, 07/03/2021, Additional history exists Cervical Cancer Screening with HPV 03/15/2028 DTaP, Tdap and Td Vaccines (3 - Td or Tdap) 07/13/2031 07/13/2021, 10/27/2016 Hepatitis C Completed 08/23/2019 Meningococcal B Vaccine Aged Out No l onger eligible based on patient's age to complete this topic Meningococcal Vaccine Aged Out No [place] eligible based on patient's age to complete this topic RSV Immunizations Under 20 Months Aged Out No longer eligible based on patient's age to complete this topic Procedures Procedure Name Priority Date/Time Associated Diagnosis Comments LIPID PANEL STAT 07/02/2020 5:30 AM CDT from Last 3 Months or Most Recently Relevant to Health Maintenance Results * (ABNORMAL) LIPID PANEL (07/02/2020 5:30 AM CDT) CHOLESTEROL 223(H) <200 MG/DL 07/02/2020 6:07 AM CDT [facility] TRIGLYCERIDES 112 <150 MG/DL 07/02/2020 6:07 AM CDT [facility] HDL 46 >40.0 MG/DL 07/02/2020 6:07 AM CDT [facility] LDL (CALCULATED) 155(H) <100 MG/DL 07/02/2020 6:07 AM CDT [facility] NON HDL CHOLESTEROL 177(H) <130 MG/DL 07/02/2020 6:07 AM CDT [facility] Comment: NOTE: WHEN THE TRIGLYCERIDES ARE >200 mg/dL, NON HDL C IS A SECONDARY TARGET OF THERAPY, WITH A GOAL 30 mg/dL HIGHER THAN THE IDENTIFIED LDL C GOAL. CHOL/HDL RATIO 4.8(H) 0.0 - 4.5 07/02/2020 6:07 AM T [facility] VLDL CALCULATION 22 5 - 55 MG/DL 07/02/2020 6:07 AM CDT [facility] LIPID INTERPRETATION 07/02/2020 6:07 AM T [facility] Comment: [facility] CONCENSUS REPORT RECOMMENDATIONS: ADULT CHILD LOW RISK: CHOLESTEROL <200 <170 TRIGLYCERIDE <150 --- HDL >=60 --- LDL <100 <110 BORDERLINE: CHOLESTEROL 200-239 170-199 TRIGLYCERIDE 150-199 --- HDL 40-59 --- LDL 100-159 110-129 HIGH RISK: CHOLESTEROL >=240 >=200 TRIGLYCERIDE >=200 --- HDL <40 --- LDL >=160 >=130 07/02/2020 5:30 AM CDT Bessie Malagon MD LABORATORY Final Re sult [facility] [address] [place] [address], from Last 3 Months or Most Recently Relevant to Health Maintenance Insurance [facility] MEDICARE Advance Directives * Full Code (Latest Code Status on File) Date Activated Date Inactivated Comments 03/05/2023 7:22 PM 03/06/2023 12:30 PM * Full Code Date Activated Date Inactivated Comments 02/24/2023 1:07 PM 02/24/2023 5:18 PM * Full Code Date Activated Date Inactivated Comments 07/11/2021 6:45 AM 07/11/2021 8:46 AM * Full Code Date Activated Date Inactivated Comments 06/07/2021 4:33 PM 06/07/2021 7:24 PM * Full Code Date Activated Date Inactivated Comments 06/01/2021 1:46 PM 06/01/2021 5:03 PM Care Teams Box Icer Relationship Specialty Start Date End Date Hoa Fuller, PAFelisaC [address] [place] [address] PCP - General 04/16/18
--- OUTSIDE RECORDS SUMMARY | 2025-07-09 22:01 | XMS_ITS | Clinical Summary ---
Author Organization [facility] Address [address] [place] [id number] Phone Care Team Providers Care Personal Care Aide Name Role Phone Hoa Fuller Primary Care Provider [phone] Allergies No known active allergies Medications LORazepam (ATIVAN) 1 mg Oral tablet Take 1 mg by mouth every 6 hours as needed. Active escitalopram (LEXAPRO) 20 mg Oral tablet Take 40 mg by mouth daily. Active traZODone (DESYREL) 50 mg Oral tablet Take 50 mg by mouth daily at bedtime. Active furosemide (LASIX) 40 mg Oral tablet Take 40 mg by mouth daily. Active GABAPENTIN ORAL Take by mouth. Active ESOMEPRAZOLE MAGNESIUM (NEXIUM ORAL) Take by mouth. Active SIMVASTATIN ORAL Take by mouth. Active levothyroxine 175 mcg tablet Take 175 mcg by mouth daily purchase order checker. Active metoprolol tartrate (LOPRESSOR) 25 mg tablet Take 25 mg by mouth daily. Active montelukast (SINGULAIR) 10 mg tablet Take 10 mg by mouth daily at bedtime. Active potassium chloride (KLOR-CON) 10 mEq Extended Release tablet Take 10 mEq by mouth 2 times daily with meals. Active famotidine (PEPCID) 20 mg tablet Take 20 mg by mouth 2 times daily. Active busPIRone (BUSPAR) 10 mg tablet Take 10 mg by mouth 3 times daily. Active magnesium oxide (MAG-OX) 400 mg tablet Take 400 mg by mouth 2 times daily. Active docusate sodium (COLACE) 100 mg capsule Take 100 mg by mouth 2 times daily. Active venlafaxine (EFFEXOR XR) 37.5 mg Extended Release 24 hour capsule Take 37.5 mg by mouth daily. Active meloxicam (MOBIC) 7.5 mg tablet Take 1 Tablet (7.5 mg) by mouth daily. 10 Tablet 1 12/13/2023 Active Active Problems Problem Noted Date Diagnosed Date Chest pain on breathing 06/05/2016 Obesity (BMI 30.0-34.9) 06/05/2016 GERD without esophagitis 06/05/2016 Recurrent major depressive disorder 06/05/2016 Hep C w/o coma, chronic Tetralogy of Fallot Family History Medical History Relation Name Comments Heart Disease Father High Cholesterol Mother Hypertension Mother Thyroid Disease Mother Relation Name Status Comments Father Mother Social History Tobacco Use Types Packs/Day Years Used Date Smoking Tobacco: Never Alcohol Use Standard Drinks/Week Comments No 0 (1 standard drink = 0.6 oz pur e alcohol) Feeling Safe Answer Date Recorded Are you in a relationship wi th someone who hurts you emotionally and/or physically? No 12/12/2023 Comments No Sex and Gender Information Value Date Recorded Sex Assigned at Not on file Legal Sex Female 3:04 AM CDT Gender Identity Not on file Sexual Orientation Not on file Last Filed Vital Signs Vital Sign Reading Time Taken Comments Blood Pressure 129/67 12/13/2023 4:00 AM POWER SUPERINTENDENT Pulse 75 12/13/2023 4:00 AM POWER SUPERINTENDENT Temperature 36.9 C (98.4 F) 12/12/2023 10:35 PM POWER SUPERINTENDENT Respiratory Rate 17 12/13/2023 3:00 AM POWER SUPERINTENDENT Oxygen Saturation 96% 12/13/2023 4:00 AM POWER SUPERINTENDENT Inhaled Oxygen Concentration - - Weight 103 kg (227 lb) 12/12/2023 10:35 PM POWER SUPERINTENDENT Height 154.9 cm (5' 1) 12/12/2023 10:35 PM POWER SUPERINTENDENT Body Mass Index 42.89 12/12/2023 10:35 PM POWER SUPERINTENDENT Plan of Treatment Health Maintenance Due Date Last Done Comments HEPATITIS B VACCINES (1 of 3 - 19+ 3-dose series) 2001 HPV/Cotest (21-29) 2003 HPV VACCINES (1 - Risk 3-dos e SCDM series) 2009 CERVICAL CANCER SCREENING 2012 HPV/Cotest (30-65) 2012 PAP SMEAR 2012 COVID-19 Vaccine (3 - Modern a risk series) 04/16/2021 03/19/2021, 02/19/2021 BREAST CANCER SCREENING 07/25/2024 07/25/2023, 07/25 INFLUENZA VACCINE (#1) 2025 , 06/23/2022, 07/13/2021, Additional history exists DTAP/TDAP/TD VACCINES (3 - T d or Tdap) 07/13/2031 07/13/2021, 10/27/2016 Insurance [place]ID [address] [place] [id number] Advance Directives For more information, please contact: [phone] * Full Code (Latest Code Status on File) Date Activated Date Inactivated Comments 06/05/2016 5:19 AM 06/05/2016 4:04 PM Care Teams Personal Care Aide Relationship Specialty Start Date End Date Hoa Fuller PA [address] [place] [id number] PCP - General Physician Button Decorating Machine Operator 06/01/16
--- OUTSIDE RECORDS SUMMARY | 2025-07-09 22:01 | XMS_ITS | Clinical Summary ---
Author Organization [facility] Address [address] [place] [address] Phone Care Team Providers Care Knitting Tester Name Role Phone Hoa Fuller Primary Care Provider [phone] Ralph Perez MD Unavailable [phone] Allergies Active Allergy Reactions Criticality Noted Date [...] CDT - 07/09/2025 3:19 PM CDT Emergency [facility] Emergency Dept. Services [address] [place] [address] Nonspecific chest pain Discharge Disposition: Discharged to home or Selfcare 06/18/2025 2:06 PM CDT - 06/18/2025 3:52 PM CDT Emergency [facility] Emergency Dept. Services [address] [place] [address] Jose Miguel Rios MD Chest wall pain [...] Sex Assigned at Female 09/01/2024 4:00 PM PULP GRINDER AND BLENDER Legal Sex Female 9:22 AM CDT Gender Identity Female 09/02/2024 10:30 AM PULP GRINDER AND BLENDER Sexual Orientation Not on file Last Filed [...] AM CDTThis note is in progress. IMPRESSION: [facility] [address] [place] [address] Test Date: 2025-07-09 Pat Name: LEANA GAMINO Department: Room: Gender: F Engraver Automatic: DEANDRA : 1980 Requested By: SANTOSH DESAI Order Number: [id number] Reading MD: Measurements Intervals [place] Rate: 98 P: 26 NC: 159 QRS: 63 QRSD: 157 T: 87 [...] ng/mL 07/09/2025 2:41 PM CDT [facility] [facility] Blood Venipuncture / Unknown 07/09/2025 2:04 PM CDT 07/09/2025 2:11 PM CDT us Katy Galloway MD CHEMISTRY ORDERABLES Final Result [facility] [facility] [address] [place] [address], [place] [phone] * XR CHEST 2 VIEWS (07/09/2025 1:14 [...] osseous abnormality. IMPRESSION: No acute cardiopulmonary disease. GRINDER AND BLENDER Procedure Note Nano Genao MD - 07/09/2025 [...] osseous abnormality. IMPRESSION: No acute cardiopulmonary disease. GRINDER AND BLENDER us Katy Galloway MD IMG DIAGNOSTIC ORDERABLES F inal Result * Red Top Tube (07/09/2025 11:10 AM CDT) Blood No Phlebotomy Charged / Unknown 07/09/2025 11:10 AM CDT 07/09/2025 11:10 AM CDT Katy Galloway MD CHEMISTRY ORDERABLES Final Result [facility] [facility] [address] [place] [address], [place] [phone] * Blue Top Tube (07/09/2025 11:10 AM CDT) Blood No Phlebotomy Charged / Unknown 07/09/2025 11:10 AM CDT 07/09/2025 11:10 AM CDT us Katy Galloway MD HEMATOLOGY ORDERABLES Final Result [facility] [facility] [address] [place] [address], [place] [phone] * (ABNORMAL) CBC with Auto Differential (07/09/2025 11:06 AM CDT) WBC 4.26 3.88 - 10.35 10(3)/mcL 07/09/2025 11:20 AM [facility] RBC 3.92 3.78 - 5.29 10(6)/mcL 07/09/2025 11:20 AM [facility] HEMOGLOBIN (HGB) 12.3 12.0 - 16.0 g/dL 07/09/2025 11:20 AM [facility] HEMATOCRIT (HCT) 35.5(L) 37.0 - 47.0 % 07/09/2025 11:20 AM [facility] MCV 90.6 82.0 - 100.0 fL 07/09/2025 11:20 AM [facility] MCH 31.4 25.9 - 32.7 pg 07/09/2025 11:20 AM [facility] MCHC 34.6(H) 31.0 - 34.1 g/dL 07/09/2025 11:20 AM [facility] RDW 13.2 11.8 - 15.7 % 07/09/2025 11:20 AM [facility] PLATELET COUNT 80(L) 150 - 450 10(3)/mcL 07/09/2025 11:20 AM [facility] MPV 11.5 8.7 - 12.2 fL 07/09/2025 11:20 AM [facility] NEUTROPHILS 66.2 40.0 - 75.0 % 07/09/2025 11:20 AM [facility] IMMATURE GRANULOCYTE 0.5 0.0 - 2.0 % 07/09/2025 11:20 AM [facility] LYMPHOCYTES 16.4(L) 20.0 - 40.0 % 07/09/2025 11:20 AM [facility] MONOCYTES 11.0(H) 0.0 - 10.0 % 07/09/2025 11:20 AM [facility] EOSINOPHILS 5.2(H) 0.0 - 4.0 % 07/09/2025 11:20 AM [facility] BASOPHILS 0.7 0.0 - 1.0 % 07/09/2025 11:20 AM [facility] ABSOLUTE NEUTROPHILS 2.82 1.50 - 8.00 10(3)/mcL 07/09/2025 11:20 AM [facility] Blood Venipuncture / Unknown 07/09/2025 11:06 AM CDT 07/09/2025 11:09 AM CDT us Katy Galloway MD HEMATOLOGY ORDERABLES Final Result [facility] [facility] [address] [place] [address], * (ABNORMAL) CMP (07/09/2025 11:06 AM CDT) SODIUM 139 137 - 145 mmol/L 07/09/2025 11:31 AM [facility] POTASSIUM 3.9 3.5 - 5.1 mmol/L 07/09/2025 11:31 AM [facility] CHLORIDE 104 98 - 107 mmol/L 07/09/2025 11:31 AM [facility] CO2, VENOUS 30 22 - 30 mmol/L 07/09/2025 11:31 AM [facility] GLUCOSE 105 70 - 106 mg/dL 07/09/2025 11:31 AM [facility] BUN 11 7 - 17 mg/dL 07/09/2025 11:31 AM [facility] CREATININE, BLOOD 0.80 0.52 - 1.04 mg/dL 07/09/2025 11:31 AM [facility] ALKALINE PHOSPHATASE 69 38 - 126 U/L 07/09/2025 11:31 AM [facility] SGPT (ALT) 13 1 - 34 U/L 07/09/2025 11:31 AM [facility] SGOT (AST) 21 14 - 36 U/L 07/09/2025 11:31 AM [facility] ALBUMIN 4.1 3.5 - 5.0 g/dL 07/09/2025 11:31 AM [facility] T BILI 0.6 0.2 - 1.3 mg/dL 07/09/2025 11:31 AM [facility] TOTAL PROTEIN 7.9 6.3 - 8.2 g/dL 07/09/2025 11:31 AM [facility] CALCIUM 8.2(L) 8.4 - 10.2 mg/dL 07/09/2025 11:31 AM [facility] ANION GAP 5.0(L) 6.0 - 16.0 mmol/L 07/09/2025 11:31 AM [facility] BUN/CREATININE RATIO 14 7 - 30 ratio 07/09/2025 11:31 AM [facility] A/G RATIO 1.1 0.9 - 2.3 07/09/2025 11:31 AM [facility] GLOBULIN 3.8 2.2 - 3.9 g/dL 07/09/2025 11:31 AM [facility] GFR, ESTIMATED >90 >60 07/09/2025 11:31 AM [facility] OSMOLALITY 277 273 - 304 mOsm/kg 07/09/2025 11:31 AM [facility] Blood Venipuncture / Unknown 07/09/2025 11:06 AM CDT 07/09/2025 11:09 AM CDT us Katy Galloway MD CHEMISTRY ORDERABLES Final Result [facility] [facility] [address] [place] [address], * XR RIBS BILATERAL WITH PA CHEST [...] of the lumbar spine for better characterization. GRINDER AND BLENDER Procedure Note Matteo Gan MD - 06/18/2025 [...] be an inferior endplate compression fracture of [id number] artifactual appearance. Surgical clips in the right [...] scan of thelumbar spine for better characterization. GRINDER AND BLENDER Jose Miguel Rios MD IM DIAGNOSTIC ORDERABLES Final Result from Last 3 Months [facility] Care Teams Knitting Tester Relationship Specialty Start Date End Date Hoa Fuller PA PCP - General Physician Head Charger 08/27/15 Ralph Perez MD [facility] [address] Oncology 03/16/17
--- OUTSIDE RECORDS SUMMARY | 2025-07-09 22:02 | XMS_ITS | Encounter Summary ---
Author Organization [facility] Address [address] [place] [id number] Care Team Providers Care Clinical Data Manager Name Role Phone Hoa Fuller PA-C Primary Care Provider [phone] Reason for Visit * Reason Onset Date Comments Hospital Follow Up 07/03/2020 Encounter Details Date Type Department Care Team (Late st Contact Info) Description 07/03/2020 Hospital Follow-up Call [facility]/S[facility] [address] [place] [id number] Estella Palomino RN Hospital Follow Up Social History Tobacco Use Types Packs/Day Years Used Date Smoking Tobacco: Never Smokeless Tobacco: Never Alcohol Use Standard Drinks/Week Comments No 0 (1 standard drink = 0.6 oz pur e alcohol) Comments No Sex and Gender Information Value Date Recorded Sex Assigned at Not on file Legal Sex Female 11:19 PM CDT Gender Identity Not on file Sexual Orientation Not on file COVID-19 Exposure Response Date Recorded In the last month, have you been in contact with someone who was confirmed or suspected to have Coronavirus / COVID-19? No / Unsure 07/02/2020 5:11 AM CDT documented as of this encounter Functional Status * RETIRED Are you deaf or do you have serious difficulty hearing Answer Date of Assessment Author Status No 07/02/2020 5:16 AM CDT Activ e * RETIRED Are you blind or do you have serious difficulty seeing, even when wearing glasses? Answer Date of Assessment Author Status No 07/02/2020 5:16 AM CDT Activ e * Do you have serious difficulty walking or climbing stairs? Answer Date of Assessment Author Status No 07/02/2020 5:16 AM July Kohli RN Active * Do you have difficulty dressing or bathing? Answer Date of Assessment Author Status No 07/02/2020 5:16 AM July Kohli RN Active * Because of a physical, mental, or emotional condition, do you have difficulty doing errands alone such as visiting a doctor's office or shopping? Answer Date of Assessment Author Status No 07/02/2020 5:16 AM July Kohli RN Active documented as of this encounter Mental Status * Because of a physical, mental, or emotional condition, do you have serious difficulty concentrating, remembering, or making decisions? Answer Entry Date Author Status No 07/02/2020 5:16 AM SUJEYT July Martínez RN Active documented in this encounter Plan of Treatment Not on file documented as of this encounter Visit Diagnoses Not on filedocumented in this encounter Additional Health Concerns Infection Onset Date Last Indicated Resolved Time COVID-19 Rule Out 09/27/2021 09/27/2021 09/27/2021 8:07 AM WARD AIDE COVID-19 Rule Out 04/01/2023 04/01/2023 04/01/2023 11:29 AM CDT COVID-19 Rule Out 12/24/2023 12/24/2023 12/24/2023 12:27 PM CDT COVID-19 Rule Out 06/14/2024 06/14/2024 06/14/2024 10:55 PM CDT documented as of this encounter Care Teams Clinical Data Manager Relationship Specialty Start Date End Date Hoa Fuller, BRENDANC [address] [place] [address] PCP - General 04/16/18 documented as of this encounter
--- OUTSIDE RECORDS SUMMARY | 2025-07-09 22:03 | XMS_ITS | Data Portability ---
Author Organization [facility] Address [address] [place] [address] Assessment No assessment recorded. Plan of Treatment Reminders Order Date Submit Date Provider Last Modified By Organization Details Last Modified Time Details Appointments None recorded . Lab None recorded . Referral None recorded . Procedures None recorded . Surgeries None recorded . Imaging None recorded . Medication Orders Keppra 750 mg tablet 024 05/24/20 24 [facility] 436, [address] [place] [address], [place], [address], 4 18:59:53 Patient TargetsNo targets recorded. Patient Instructions Encounter Date Encounter Id Patient Instructions Last Modified By Organization Details Last Modified Time 08/17/2023 [id number] -Follow up by PC P if symptoms persist, or return to ED if any symptoms worsen. Make sure you: Understand these instructions, will watch your condition, will get help right away if you are not doing well or get worse. Please return to the emergency room if your condition worsens. In addition to the patient, these instructions are being provided to ([place] all that apply): Parent/Guardian Patient Ton Cylinder Inspector P rint Name/Relationship Recheck vital signs: [] yes, [] no Have all of your visit related concerns been addressed? [] yes, [] no Was the call back program explained to you? [] yes, [] no What telephone number can we reach you at? What is the preferred time to call? Nurse use only: All orders completed [] yes, [] no Labs/ Xrays completed [] yes, [] no Vitals re-checked [] yes, [] no Physician notified of abnormal vitals [] yes, [] no [email or web address] Not available 08/18/2023 03:35:37 12/24/2023 [id number] Make sure you: Understand these instructions, will watch your condition, will get help right away if you are not doing well or get worse. Please return to the emergency room if your condition worsens. In addition to the patient, these instructions are being provided to ([place] all that apply): Parent/Guardian Patient Ton Cylinder Inspector P rint Name/Relationship Recheck vital signs: [] yes, [] no Have all of your visit related concerns been addressed? [] yes, [] no Was the call back program explained to you? [] yes, [] no What telephone number can we reach you at? What is the preferred time to call? Nurse use only: All orders completed [] yes, [] no Labs/ Xrays completed [] yes, [] no Vitals re-checked [] yes, [] no Physician notified of abnormal vitals [] yes, [] no [email or web address] Not available 12/24/2023 21:13:08 05/24/2024 [id number] Discussed with patient's the importance of establishing with a primary care physician and is seeing a neurologist. Increase her Keppra to 750 mg twice daily. Discussed with her she will only get this 1 month supply and she needs to get see a primary care physician and neurologist. Make sure you: Understand these instructions, will watch your condition, will get help right away if you are not doing well or get worse. Please return to the emergency room if your condition worsens. In addition to the patient, these instructions are being provided to ([place] all that apply): Parent/Guardian Patient Ton Cylinder Inspector P rint Name/Relationship Recheck vital signs: [] yes, [] no Have all of your visit related concerns been addressed? [] yes, [] no Was the call back program explained to you? [] yes, [] no What telephone number can we reach you at? What is the preferred time to call? Nurse use only: All orders completed [] yes, [] no Labs/ Xrays completed [] yes, [] no Vitals re-checked [] yes, [] no Physician notified of abnormal vitals [] yes, [] no [email or web address] Not available 05/24/2024 19:00:24 Hospital Discharge Instructions Patient Instructions Follow up with Dr. Moore (cardiology at [facility]) Nitroglycerin as neede / as directed Increased fluids and fiber in diet Stool softener (Docusate) as needed Mag citrate and Milk of Mag as needed Enemas as needed Return as needed Make sure you: Understand these instructions, will watch your condition, will get help right away if you are not doing well or get worse. Please return to the emergency room if your condition worsens. Recheck vital signs: [] yes, [] no Have all of your visit related concerns been addressed? [] yes, [] no Was the call back program explained to you? [] yes, [] no What telephone number can we reach you at? What is the preferred time to call? Nurse use only: All orders completed [] yes, [] no Labs/ Xrays completed [] yes, [] no Vitals re-checked [] yes, [] no Physician notified of abnormal vitals [] yes, [] no -Follow up by PCP if symptoms persist, or return to ED if any symptoms worsen. Make sure you: Understand these instructions, will watch your condition, will get help right away if you are not doing well or get worse. Please return to the emergency room if your condition worsens. In addition to the patient, these instructions are being provided to ([place] all that apply): Parent/Guardian Patient Ton Cylinder Inspector Print Name/Relationship Recheck vital signs: [] yes, [] no Have all of your visit related concerns been addressed? [] yes, [] no Was the call back program explained to you? [] yes, [] no What telephone number can we reach you at? What is the preferred time to call? Nurse use only: All orders completed [] yes, [] no Labs/ Xrays completed [] yes, [] no Vitals re-checked [] yes, [] no Physician notified of abnormal vitals [] yes, [] no Make sure you: Understand these instructions, will watch your condition, will get help right away if you are not doing well or get worse. Please return to the emergency room if your condition worsens. In addition to the patient, these instructions are being provided to ([place] all that apply): Parent/Guardian Patient Ton Cylinder Inspector Print Name/Relationship Recheck vital signs: [] yes, [] no Have all of your visit related concerns been addressed? [] yes, [] no Was the call back program explained to you? [] yes, [] no What telephone number can we reach you at? What is the preferred time to call? Nurse use only: All orders completed [] yes, [] no Labs/ Xrays completed [] yes, [] no Vitals re-checked [] yes, [] no Physician notified of abnormal vitals [] yes, [] no Discussed with patient's the importance of establishing with a primary care physician and is seeing a neurologist. Increase her Keppra to 750 mg twice daily. Discussed with her she will only get this 1 month supply and she needs to get see a primary care physician and neurologist. Make sure you: Understand these instructions, will watch your condition, will get help right away if you are not doing well or get worse. Please return to the emergency room if your condition worsens. In addition to the patient, these instructions are being provided to ([place] all that apply): Parent/Guardian Patient Ton Cylinder Inspector Print Name/Relationship Recheck vital signs: [] yes, [] no Have all of your visit related concerns been addressed? [] yes, [] no Was the call back program explained to you? [] yes, [] no What telephone number can we reach you at? What is the preferred time to call? Nurse use only: All orders completed [] yes, [] no Labs/ Xrays completed [] yes, [] no Vitals re-checked [] yes, [] no Physician notified of abnormal vitals [] yes, [] no Patient Goals None recorded. Results Created Date Observation Date Name Description Value Unit Range Abnormal Flag Note LastModifiedBy Organization Detail LastModifiedTime 05/08/20 19 05/08/2019 pregn carlene test, urine [facility] PREG.UR. Negati ve NEGATI VE If pregn carlene is still suspe cted, a repea t test on a first morni ng speci men is recom harshal Cronin NOTE: False Negat yael urine hCG quali tativ e resul ts may occur after the 5th to 7th week of pregn carlene due to the rise in hCG beta core fragm ent yusef ntrat ion inter feren ce. It does not inter fere with serum hCG resul ts. So if you suspe ct your patie nt may be in this time frame , arash cronin order a serum hCG, quali tativ e test. Not Available [facility] (Lab) [address], [place], [address], Not Available 05/29/20 19 05/29/2019 Tropo jarrett I.car diac [Mass /volu me] in Serum or Plasm a TROPONIN <0.012 ng/ml 0.000- 0.034 Tropo jarrett I Refer ence Range : >0.03 4 ng/mL [facility] Myoca rdial Damag e >0.12 0 Stron gly [facility] Myoca rdial Infar ction . Not Available [facility] (Lab) [address], [place], [address], Not Available 05/29/20 19 05/29/2019 Amyla se [Enzy matic activ ity/v olume ] in Serum or Plasm a AMYL 52 U/L 30-110 Not Available [facility] (Lab) [address], [place], [address], Not Available 05/29/20 19 05/29/2019 pregn carlene test, urine PREG.UR. Negati ve NEGATI VE PLEAS E NOTE: False Negat yael urine hCG quali tativ e resul ts may occur after the 5th to 7th week of pregn carlene due to the rise in hCG beta core fragm ent yusef ntrat ion inter feren ce. It does not inter fere with serum hCG resul ts. So if you suspe ct your patie nt may be in this time frame , pleas e order a serum hCG, quali tativ e test. PLEAS E NOTE: False Negat yael urine hCG quali tativ e resul ts may occur after the 5th to 7th week of pregn carlene due to the rise in hCG beta core fragm ent yusef ntrat ion inter feren ce. It does not inter fere with serum hCG resul ts. So if you suspe ct your patie nt may be in this time frame , pleas e order a serum hCG, quali tativ e test. Not Available [facility] (Lab) [address], [place], [address], Not Available 05/29/20 19 05/29/2019 PT/IN R INR 1.04 0.88-1 .09 Indic ation INR __ Proph ylaxi s/nhan atmen t of: --Milton ous Throm bosis , Pulmo nary Embol ism 2.0 - 3.0 Preve ntion of syste mathew embol ism from: --Tis edinson heart valve s 2.0 - 3.0 --Acu te myoca rdial infar ction (to prese nt syste mathew embol ism*) 2.0 - 3.0 --Lexi vular heart disea se 2.0 - 3.0 --Atr ial Fibri llati on 2.0 - 3.0 Mecha nical prost hetic valve s (high risk) 2.5 - 3.5 __ *if oral antic oagul ant thera py is elect ed to preve nt recur rent myoca rdial infar ction , an INR of 2.5 - 3.5 is recom harshal d, consi stent with Food and Drug Admin istra tion recom menda tions . Not Available [facility] (Lab) [address], [place], [address], Not Available 05/29/20 19 05/29/2019 Magne sium [Mass /volu me] in Serum or Plasm a MG 1.9 mg/dl 1.6-2. 3 Not Available [facility] (Lab) [address], [place], [address], Not Available 05/29/20 19 05/29/2019 Lipas e [Enzy matic activ ity/v olume ] in Serum or Plasm a LIPASE 94 U/L 23-300 Not Available [facility] (Lab) [address], [place], [address], Not Available 05/29/20 19 05/29/2019 CBC panel - Blood by Autom ated count WBC 3.6 10*3 3.9-10 .4 Not Available [facility] ([facility]) [address], [place], [address], Not Available 05/29/20 19 05/29/2019 CBC panel - Blood by Autom ated count RBC 3.57 10*6 3.78-5 .29 Not Available [facility] ([facility]) [address], [place], [address], Not Available 05/29/20 19 05/29/2019 CBC panel - Blood by Autom ated count HGB 11.9 g/dl 12.0-1 6.0 Not Available [facility] ([facility]) [address], [place], [address], Not Available 05/29/20 19 05/29/2019 CBC panel - Blood by Autom ated count HCT 34.0 % 37.0-4 7.0 Not Available [facility] ([facility]) [address], [place], [address], Not Available 05/29/20 19 05/29/2019 CBC panel - Blood by Autom ated count MCV 95.2 fl 82.0-1 00.0 Not Available [facility] ([facility]) [address], [place], [address], Not Available 05/29/20 19 05/29/2019 CBC panel - Blood by Autom ated count MCH 33 pg 26-33 Not Available [facility] ([facility]) [address], [place], [address], Not Available 05/29/20 19 05/29/2019 CBC panel - Blood by Autom ated count MCHC 35 g/dl 31-34 Not Available [facility] ([facility]) [address], [place], [address], Not Available 05/29/20 19 05/29/2019 CBC panel - Blood by Autom ated count RDW 12.4 % 11.8-1 5.7 Not Available [facility] ([facility]) [address], [place], [address], Not Available 05/29/20 19 05/29/2019 CBC panel - Blood by Autom ated count PLT 75 10*3 150-45 0 Not Available [facility] ([facility]) [address], [place], [address], Not Available 05/29/20 19 05/29/2019 CBC panel - Blood by Autom ated count MPV 11.6 fl 8.7-12 .2 Not Available [facility] ([facility]) [address], [place], [address], Not Available 05/29/20 19 05/29/2019 CBC panel - Blood by Autom ated count NEUT% 61.1 % 40.0-7 5.0 Not Available [facility] ([facility]) [address], [place], [address], Not Available 05/29/20 19 05/29/2019 CBC panel - Blood by Autom ated count IMGRANS% 0.0 % 0.0-2. 0 Not Available [facility] ([facility]) [address], [place], [address], Not Available 05/29/20 19 05/29/2019 CBC panel - Blood by Autom ated count LYMPH% 23.5 % 20.0-4 0.0 Not Available [facility] ([facility]) [address], [place], [address], Not Available 05/29/20 19 05/29/2019 CBC panel - Blood by Autom ated count MONO% 10.2 % 0.0-10 .0 Not Available [facility] ([facility]) [address], [place], [address], Not Available 05/29/20 19 05/29/2019 CBC panel - Blood by Autom ated count EOS% 4.4 % 0.0-4. 0 Not Available [facility] ([facility]) [address], [place], [address], Not Available 05/29/20 19 05/29/2019 CBC panel - Blood by Autom ated count BASOS% 0.8 % 0.0-1. 0 Not Available [facility] ([facility]) [address], [place], [address], Not Available 05/29/20 19 05/29/2019 CBC panel - Blood by Autom ated count ANC 2.21 10^3/ uL 1.50-8 .00 Not Available [facility] ([facility]) [address], [place], [address], Not Available 05/29/20 19 05/29/2019 CBC panel - Blood by Autom ated count _ Not Available [facility] ([facility]) [address], [place], [address], Not Available 05/29/20 19 05/29/2019 Fibri n D-dim er FEU [Mass /volu me] in Plate let poor plasm a D-DIMER TRIAGE 259.0 ng/mL 0.0-39 9.0 Expec jake Range : Less Than 400 ng/mL Not Available [facility] ([facility]) [address] [place], [address], Not Available 05/29/20 19 05/29/2019 Myogl obin [Mass /volu me] in Serum or Plasm a ROSSY 26.3 ng/ml 0.0-10 1.0 Not Available [facility] ([facility]) [address], [place], [address], Not Available 05/29/20 19 05/29/2019 Urina lysis compl ete W Refle x Cultu re panel - Urine U.COLOR Drk Yellow YELLOW Not Available [facility] ([facility]) [address], [place], [address], Not Available 05/29/20 19 05/29/2019 Urina lysis compl ete W Refle x Cultu re panel - Urine U.CLARITY Sl.Flores udy CLEAR Not Available [facility] ([facility]) [address], [place], [address], Not Available 05/29/20 19 05/29/2019 Urina lysis compl ete W Refle x Cultu re panel - Urine U.GLU Negati ve NEGATI VE Not Available [facility] ([facility]) [address], [place], [address], Not Available 05/29/20 19 05/29/2019 Urina lysis compl ete W Refle x Cultu re panel - Urine U.BILIRBN 1+ NEGATI VE Not Available [facility] ([facility]) [address], [place], [address], Not Available 05/29/20 19 05/29/2019 Urina lysis compl ete W Refle x Cultu re panel - Urine U.KET 1+ NEGATI VE Not Available [facility] ([facility]) [address], [place], [address], Not Available 05/29/20 19 05/29/2019 Urina lysis compl ete W Refle x Cultu re panel - Urine U.SPGR >=1.03 0 1.001- 1.020 Not Available [facility] ([facility]) [address], [place], [address], Not Available 05/29/20 19 05/29/2019 Urina lysis compl ete W Refle x Cultu re panel - Urine U.PH 6.0 5.0-8. 0 Not Available [facility] ([facility]) [address], [place], [address], Not Available 05/29/20 19 05/29/2019 Urina lysis compl ete W Refle x Cultu re panel - Urine U.BLOOD Negati ve NEGATI VE Not Available [facility] ([facility]) [address], [place], [address], Not Available 05/29/20 19 05/29/2019 Urina lysis compl ete W Refle x Cultu re panel - Urine U.PROTEIN 1+ NEGATI VE Not Available [facility] ([facility]) [address], [place], [address], Not Available 05/29/20 19 05/29/2019 Urina lysis compl ete W Refle x Cultu re panel - Urine U.NITRITE Negati ve NEGATI VE Not Available [facility] ([facility]) [address], [place], [address], Not Available 05/29/20 19 05/29/2019 Urina lysis compl ete W Refle x Cultu re panel - Urine U.UROB. 2.0 E.U./d L 0.1-1. 0 Not Available [facility] ([facility]) [address], [place], [address], Not Available 05/29/20 19 05/29/2019 Urina lysis compl ete W Refle x Cultu re panel - Urine U.LEUK. Negati ve NEGATI VE Not Available [facility] ([facility]) [address], [place], [address], Not Available 05/29/20 19 05/29/2019 Urina lysis compl ete W Refle x Cultu re panel - Urine - Micros copic: Not Available [facility] ([facility]) [address], [place], [address], Not Available 05/29/20 19 05/29/2019 Urina lysis compl ete W Refle x Cultu re panel - Urine U.WBC None Seen Not Available [facility] ([facility]) [address], [place], [address], Not Available 05/29/20 19 05/29/2019 Urina lysis compl ete W Refle x Cultu re panel - Urine U.RBC None Seen Not Available [facility] ([facility]) [address], [place], [address], Not Available 05/29/20 19 05/29/2019 Urina lysis compl ete W Refle x Cultu re panel - Urine U.EPI'S 35-40 Not Available [facility] ([facility]) [address], [place], [address], Not Available 05/29/20 19 05/29/2019 Urina lysis compl ete W Refle x Cultu re panel - Urine U.BACT 1+ Not Available [facility] ([facility]) [address], [place], [address], Not Available 05/29/20 19 05/29/2019 Urina lysis compl ete W Refle x Cultu re panel - Urine U.AMRPH. Occasi onal Not Available [facility] ([facility]) [address], [place], [address], Not Available 05/29/20 19 05/29/2019 Compr ehens yael metab olic 2000 panel - Serum or Plasm a NA 140 mmol/ L 137-14 5 Not Available [facility] ([facility]) [address] [place], [address], Not Available 05/29/20 19 05/29/2019 Compr ehens yael metab olic 2000 panel - Serum or Plasm a K+ 3.6 mmol/ L 3.5-5. 1 Not Available [facility] ([facility]) [address], [place], [address], Not Available 05/29/20 19 05/29/2019 Compr ehens yael metab olic 2000 panel - Serum or Plasm a CL 105 mmol/ L 98-107 Not Available [facility] ([facility]) [address], [place], [address], Not Available 05/29/20 19 05/29/2019 Compr ehens yael metab olic 2000 panel - Serum or Plasm a CO2 27 mmol/ L 22-30 Not Available [facility] ([facility]) [address], [place], [address], Not Available 05/29/20 19 05/29/2019 Compr ehens yael metab olic 2000 panel - Serum or Plasm a GLUC 93 mg/dL 70-106 Not Available [facility] ([facility]) [address], [place], [address], Not Available 05/29/20 19 05/29/2019 Compr ehens yael metab olic 2000 panel - Serum or Plasm a BUN 13.0 mg/dL 7.0-17 .0 Not Available [facility] ([facility]) [address], [place], [address], Not Available 05/29/20 19 05/29/2019 Compr ehens yael metab olic 2000 panel - Serum or Plasm a CREAT 0.9 mg/dl 0.5-1. 0 Not Available [facility] ([facility]) [address], [place], [address], Not Available 05/29/20 19 05/29/2019 Compr ehens yael metab olic 2000 panel - Serum or Plasm a ALK.PHOS 85 U/L 38-126 Not Available [facility] ([facility]) [address] [place], [address], Not Available 05/29/20 19 05/29/2019 Compr ehens yael metab olic 2000 panel - Serum or Plasm a ALT 14 U/L 9-52 Not Available [facility] ([facility]) [address], [place], [address], Not Available 05/29/20 19 05/29/2019 Compr ehens yael metab olic 2000 panel - Serum or Plasm a AST 21 U/L 14-36 Not Available [facility] ([facility]) [address], [place], [address], Not Available 05/29/20 19 05/29/2019 Compr ehens yael metab olic 2000 panel - Serum or Plasm a ALB 3.7 g/dl 3.5-5. 0 Not Available [facility] ([facility]) [address], [place], [address], Not Available 05/29/20 19 05/29/2019 Compr ehens yael metab olic 2000 panel - Serum or Plasm a TBIL 0.40 mg/dl 0.20-1 .30 Not Available [facility] ([facility]) [address], [place], [address], Not Available 05/29/20 19 05/29/2019 Compr ehens yael metab olic 2000 panel - Serum or Plasm a TP 7.5 g/dl 6.3-8. 2 Not Available [facility] ([facility]) [address], [place], [address], Not Available 05/29/20 19 05/29/2019 Compr ehens yael metab olic 2000 panel - Serum or Plasm a CA 7.6 mg/dl 8.4-10 .2 Not Available [facility] ([facility]) [address] [place], [address], Not Available 05/29/20 19 05/29/2019 Compr ehens yael metab olic 2000 panel - Serum or Plasm a GAP 8.0 mmol/ L 8.0-16 .0 Not Available [facility] ([facility]) [address], [place], [address], Not Available 05/29/20 19 05/29/2019 Compr ehens yael metab olic 2000 panel - Serum or Plasm a B/C 14.44 7.00-3 0.00 Not Available [facility] ([facility]) [address], [place], [address], Not Available 05/29/20 19 05/29/2019 Compr ehens yael metab olic 2000 panel - Serum or Plasm a OSMO 279 mos/k g 273-30 4 Not Available [facility] ([facility]) [address], [place], [address], Not Available 05/29/20 19 05/29/2019 Compr ehens yael metab olic 2000 panel - Serum or Plasm a A/G RATIO 0.97 0.90-2 .30 Not Available [facility] (Lab) [address], [place], [address], Not Available 05/29/20 19 05/29/2019 Compr ehens yael metab olic 2000 panel - Serum or Plasm a GLOBULIN 3.8 g/dl 2.2-3. 9 Not Available [facility] (Lab) [address], [place], [address], Not Available 05/29/20 19 05/29/2019 Compr ehens yael metab olic 2000 panel - Serum or Plasm a GFR- AA Greate r Than 60 mL/mi n/1.7 3_m^2 Not Available [facility] (Lab) [address] [place], [address], Not Available 05/29/20 19 05/29/2019 Compr ehens yael metab olic 2000 panel - Serum or Plasm a GFR- OTHER Greate r Than 60 mL/mi n/1.7 3_m^2 It is recom harshal d that for: GFR value s great er than 60 mL/mi n/1.7 3 sq.me ters - no addit ional renal evalu ation is requi red GFR value s less than 60 mL/mi n/1.7 3 sq.me ters - compl ete evalu ation for renal disea se GFR value s less than 60 mL/mi n/1.7 3 sq.me ters - consu ltati on with a Nephr hani st Not Available [facility] (Lab) [address], [place], [address], Not Available 08/17/20 23 08/17/2023 Compr ehens yael metab olic 2000 panel - Serum or Plasm a NA 140 mmol/ L 137-14 5 Not Available [facility] ([facility]) [address], [place], [address], Not Available 08/17/20 23 08/17/2023 Compr ehens yael metab olic 2000 panel - Serum or Plasm a K+ 4.0 mmol/ L 3.5-5. 1 Not Available [facility] (Lab) [address], [place], [address], Not Available 08/17/20 23 08/17/2023 Compr ehens yael metab olic 2000 panel - Serum or Plasm a CL 103 mmol/ L 98-107 Not Available [facility] ([facility]) [address], [place], [address], Not Available 08/17/20 23 08/17/2023 Compr ehens yael metab olic 2000 panel - Serum or Plasm a CO2 29 mmol/ L 22-30 Not Available [facility] ([facility]) [address], [place], [address], Not Available 08/17/20 23 08/17/2023 Compr ehens yael metab olic 2000 panel - Serum or Plasm a GLUC 81 mg/dL 70-106 Not Available [facility] ([facility]) [address], [place], [address], Not Available 08/17/20 23 08/17/2023 Compr ehens yael metab olic 1999 panel - Serum or Plasm a BUN 10.0 mg/dL 7.0-17 .0 Not Available [facility] (Lab) [address], [place] [address], Not Available 08/17/20 23 08/17/2023 Compr ehens yael metab olic 1999 panel - Serum or Plasm a CREAT 0.9 mg/dl 0.5-1. 0 Not Available [facility] (Lab) [address], [place], [address], Not Available 08/17/20 23 08/17/2023 Compr ehens yael metab olic 1999 panel - Serum or Plasm a ALK.PHOS 75 U/L 38-126 Not Available [facility] (Lab) [address], [place], [address], Not Available 08/17/20 23 08/17/2023 Compr ehens yael metab olic 2000 panel - Serum or Plasm a ALT 16 U/L 1-34 Not Available [facility] (Lab) [address], [place], [address], Not Available 08/17/20 23 08/17/2023 Compr ehens yael metab olic 2000 panel - Serum or Plasm a AST 24 U/L 14-36 Not Available [facility] (Lab) [address], [place], [address], Not Available 08/17/20 23 08/17/2023 Compr ehens yael metab olic 2000 panel - Serum or Plasm a ALB 4.4 g/dl 3.5-5. 0 Not Available [facility] (Lab) [address], [place], [address], Not Available 08/17/20 23 08/17/2023 Compr ehens yael metab olic 1999 panel - Serum or Plasm a TBIL 0.50 mg/dl 0.20-1 .30 Not Available [facility] (Lab) [address], [place], [address], Not Available 08/17/20 23 08/17/2023 Compr ehens yael metab olic 2000 panel - Serum or Plasm a TP 8.0 g/dl 6.3-8. 2 Not Available [facility] (Lab) [address], [place], [address], Not Available 08/17/20 23 08/17/2023 Compr ehens yael metab olic 2000 panel - Serum or Plasm a CA 8.0 mg/dl 8.4-10 .2 Not Available [facility] (Lab) [address], [place], [address], Not Available 08/17/20 23 08/17/2023 Compr ehens yael metab olic 2000 panel - Serum or Plasm a GAP 8.0 mmol/ L 6.0-16 .0 Not Available [facility] (Lab) [address], [place], [address], Not Available 08/17/20 23 08/17/2023 Compr ehens yael metab olic 2000 panel - Serum or Plasm a B/C 11.11 7.00-3 0.00 Not Available [facility] (Lab) [address], [place], [address], Not Available 08/17/20 23 08/17/2023 Compr ehens yael metab olic 2000 panel - Serum or Plasm a OSMO 277 mos/k g 273-30 4 Not Available [facility] (Lab) [address], [place], [address], Not Available 08/17/20 23 08/17/2023 Compr ehens yael metab olic 1999 panel - Serum or Plasm a A/G RATIO 1.22 0.90-2 .30 Not Available [facility] (Lab) [address], [place], [address], Not Available 08/17/20 23 08/17/2023 Compr ehens yael metab olic 1999 panel - Serum or Plasm a GLOBULIN 3.6 g/dl 2.2-3. 9 Not Available [facility] (Lab) [address], [place], [address], Not Available 08/17/20 23 08/17/2023 Compr ehens yael metab olic 2000 panel - Serum or Plasm a GFR- AA Greate r Than 60 mL/mi n/1.7 3_m^2 Not Available [facility] (Lab) [address], [place], [address], Not Available 08/17/20 23 08/17/2023 Compr ehens yael metab olic 2000 panel - Serum or Plasm a GFR- OTHER Greate r Than 60 mL/mi n/1.7 3_m^2 It is recom harshal d that for: GFR value s great er than 60 mL/mi n/1.7 3 sq.me ters - no addit ional renal evalu ation is requi red GFR value s less than 60 mL/mi n/1.7 3 sq.me ters - compl ete evalu ation for renal disea se GFR value s less than 60 mL/mi n/1.7 3 sq.me ters - consu ltati on with a Nephr ologi st Not Available [facility] (Lab) [address], [place], [address], Not Available 08/17/20 23 08/17/2023 CBC panel - Blood by Autom ated count WBC 5.1 10*3 3.9-10 .4 Not Available [facility] (Lab) [address], [place], [address], Not Available 08/17/20 23 08/17/2023 CBC panel - Blood by Autom ated count RBC 3.83 10*6 3.78-5 .29 Not Available [facility] (Lab) [address], [place], [address], Not Available 08/17/2008/17/2023 CBC panel - Blood by Autom ated count HGB 13.0 g/dl 12.0-1 6.0 Not Available [facility] (Lab) [address], [place], [address], Not Available 08/17/2008/17/2023 CBC panel - Blood by Autom ated count HCT 37.0 % 37.0-4 7.0 Not Available [facility] (Lab) [address], [place], [address], Not Available 08/17/2008/17/2023 CBC panel - Blood by Autom ated count MCV 96.6 fl 82.0-1 00.0 Not Available [facility] (Lab) [address], [place], [address], Not Available 08/17/2008/17/2023 CBC panel - Blood by Autom ated count MCH 34 pg 26-33 Not Available [facility] (Lab) [address], [place], [address], Not Available 08/17/2008/17/2023 CBC panel - Blood by Autom ated count MCHC 35 g/dl 31-34 Not Available [facility] (Lab) [address], [place], [address], Not Available 08/17/2008/17/2023 CBC panel - Blood by Autom ated count RDW 12.6 % 11.8-1 5.7 Not Available [facility] (Lab) [address], [place], [address], Not Available 08/17/20 23 08/17/2023 CBC panel - Blood by Autom ated count PLT 100 10*3 150-45 0 Not Available [facility] (Lab) [address], [place], [address], Not Available 08/17/20 23 08/17/2023 CBC panel - Blood by Autom ated count MPV 11.2 fl 8.7-12 .2 Not Available [facility] (Lab) [address], [place], [address], Not Available 08/17/20 23 08/17/2023 CBC panel - Blood by Autom ated count NEUT% 68.5 % 40.0-7 5.0 Not Available [facility] (Lab) [address], [place], [address], Not Available 08/17/20 23 08/17/2023 CBC panel - Blood by Autom ated count IMGRANS% 0.4 % 0.0-2. 0 Not Available [facility] (Lab) [address], [place], [address], Not Available 08/17/20 23 08/17/2023 CBC panel - Blood by Autom ated count LYMPH% 20.0 % 20.0-4 0.0 Not Available [facility] (Lab) [address], [place], [address], Not Available 08/17/20 23 08/17/2023 CBC panel - Blood by Autom ated count MONO% 6.4 % 0.0-10 .0 Not Available [facility] (Lab) [address], [place], [address], Not Available 08/17/20 23 08/17/2023 CBC panel - Blood by Autom ated count EOS% 4.1 % 0.0-4. 0 Not Available [facility] (Lab) [address], [place], [address], Not Available 08/17/20 23 08/17/2023 CBC panel - Blood by Autom ated count BASOS% 0.6 % 0.0-1. 0 Not Available [facility] (Lab) [address], [place], [address], Not Available 08/17/20 23 08/17/2023 CBC panel - Blood by Autom ated count ANC 3.52 10^3/ uL 1.50-8 .00 Not Available [facility] (Lab) [address], [place], [address], Not Available 08/17/20 23 08/17/2023 CBC panel - Blood by Autom ated count _ Not Available [facility] (Lab) [address], [place], [address], Not Available 08/17/20 23 08/17/2023 Fibri n D-dim er FEU [Mass /volu me] in Plate let poor plasm a D-DIMER TRIAGE 1210.0 ng/mL 0.0-39 9.0 Expec jake Range : Less Than 400 ng/mL Not Available [facility] (Lab) [address], [place], [address], Not Available 08/17/2008/17/2023 Tropo jarrett I.car diac [Mass /volu me] in Serum or Plasm a TROPONIN <0.012 ng/ml 0.000- 0.034 Tropo jarrett I Refer ence Range : >0.03 4 ng/mL Sug[facility] st[facility] Myoca rdial Damag e >0.12 0 Stron gly [facility] Myoca rdial Infar ction . Not Available [facility] (Lab) [address], [place], [address], Not Available 08/17/2008/17/2023 Magne sium [Mass /volu me] in Serum or Plasm a MG 2.1 mg/dl 1.6-2. 3 Not Available [facility] (Lab) [address], [place], [address], Not Available 08/17/20 23 08/17/2023 Tropo jarrett I.car diac [Mass /volu me] in Serum or Plasm a TROPONIN <0.012 ng/ml 0.000- 0.034 Tropo jarrett I Refer ence Range : >0.03 4 ng/mL [facility] Myoca rdial Damag e >0.12 0 Stron gly [facility] Myoca rdial Infar ction . Not Available [facility] (Lab) [address], [place], [address], Not Available 12/24/19 24 12/24/2023 Tropo jarrett I.car diac [Mass /volu me] in Serum or Plasm a TROPONIN <0.012 ng/ml 0.000- 0.034 Tropo jarrett I Refer ence Range : >0.03 4 ng/mL [facility] Myoca rdial Damag e >0.12 0 Stron gly [facility] Myoca rdial Infar ction . Not Available [facility] (Lab) [address], [place], [address], Not Available 12/24/19 24 12/24/2023 CBC panel - Blood by Autom ated count WBC 5.7 10*3 3.9-10 .4 Not Available [facility] (Lab) [address], [place], [address], Not Available 12/24/19 24 12/24/2023 CBC panel - Blood by Autom ated count RBC 3.71 10*6 3.78-5 .29 Not Available [facility] (Lab) [address], [place], [address], Not Available 12/24/19 24 12/24/2023 CBC panel - Blood by Autom ated count HGB 12.1 g/dl 12.0-1 6.0 Not Available [facility] (Lab) [address], [place], [address], Not Available 12/24/19 24 12/24/2023 CBC panel - Blood by Autom ated count HCT 33.9 % 37.0-4 7.0 Not Available [facility] (Lab) [address], [place], [address], Not Available 12/24/19 24 12/24/2023 CBC panel - Blood by Autom ated count MCV 91.4 fl 82.0-1 00.0 Not Available [facility] (Lab) [address], [place], [address], Not Available 12/24/19 24 12/24/2023 CBC panel - Blood by Autom ated count MCH 33 pg 26-33 Not Available [facility] (Lab) [address], [place], [address], Not Available 12/24/19 24 12/24/2023 CBC panel - Blood by Autom ated count MCHC 36 g/dl 31-34 Not Available [facility] (Lab) [address], [place], [address], Not Available 12/24/19 24 12/24/2023 CBC panel - Blood by Autom ated count RDW 12.5 % 11.8-1 5.7 Not Available [facility] (Lab) [address], [place], [address], Not Available 12/24/19 24 12/24/2023 CBC panel - Blood by Autom ated count PLT 93 10*3 150-45 0 Not Available [facility] (Lab) [address], [place], [address], Not Available 12/24/19 12/24/2023 CBC panel - Blood by Autom ated count MPV 11.3 fl 8.7-12 .2 Not Available [facility] (Lab) [address], [place], [address], Not Available 12/24/19 24 12/24/2023 CBC panel - Blood by Autom ated count NEUT% 74.5 % 40.0-7 5.0 Not Available [facility] (Lab) [address], [place], [address], Not Available 12/24/19 24 12/24/2023 CBC panel - Blood by Autom ated count IMGRANS% 0.4 % 0.0-2. 0 Not Available [facility] (Lab) [address], [place], [address], Not Available 12/24/19 24 12/24/2023 CBC panel - Blood by Autom ated count LYMPH% 11.1 % 20.0-4 0.0 Not Available [facility] (Lab) [address], [place], [address], Not Available 12/24/19 24 12/24/2023 CBC panel - Blood by Autom ated count MONO% 10.2 % 0.0-10 .0 Not Available [facility] (Lab) [address], [place], [address], Not Available 12/24/19 24 12/24/2023 CBC panel - Blood by Autom ated count EOS% 3.3 % 0.0-4. 0 Not Available [facility] (Lab) [address], [place], [address], Not Available 12/24/19 24 12/24/2023 CBC panel - Blood by Autom ated count BASOS% 0.5 % 0.0-1. 0 Not Available [facility] (Lab) [address], [place], [address], Not Available 12/24/19 24 12/24/2023 CBC panel - Blood by Autom ated count ANC 4.25 10^3/ uL 1.50-8 .00 Not Available [facility] (Lab) [address], [place], [address], Not Available 12/24/19 24 12/24/2023 CBC panel - Blood by Autom ated count _ Not Available [facility] (Lab) [address], [place], [address], Not Available 12/24/19 24 12/24/2023 Strep tococ cus pyoge kim DNA [Pres ence] in Throa t by LIU with probe detec tion STREP GRP A PCR Negati ve NEGATI VE Not Available [facility] (Lab) [address], [place], [address], Not Available 12/24/19 24 12/24/2023 Compr ehens yael metab olic 2000 panel - Serum or Plasm a NA 140 mmol/ L 137-14 5 Not Available [facility] (Lab) [address], [place], [address], Not Available 12/24/19 24 12/24/2023 Compr ehens yael metab olic 2000 panel - Serum or Plasm a K+ 3.6 mmol/ L 3.5-5. 1 Not Available [facility] (Lab) [address], [place], [address], Not Available 12/24/19 24 12/24/2023 Compr ehens yael metab olic 2000 panel - Serum or Plasm a CL 105 mmol/ L 98-107 Not Available [facility] (Lab) [address], [place], [address], Not Available 12/24/19 24 12/24/2023 Compr ehens yael metab olic 2000 panel - Serum or Plasm a CO2 30 mmol/ L 22-30 Not Available [facility] (Lab) [address], [place], [address], Not Available 12/24/19 24 12/24/2023 Compr ehens yael metab olic 2000 panel - Serum or Plasm a GLUC 108 mg/dL 70-106 Not Available [facility] (Lab) [address] [place], [address], Not Available 12/24/19 24 12/24/2023 Compr ehens yael metab olic 2000 panel - Serum or Plasm a BUN 23.0 mg/dL 7.0-17 .0 Not Available [facility] (Lab) [address], [place], [address], Not Available 12/24/19 24 12/24/2023 Compr ehens yael metab olic 2000 panel - Serum or Plasm a CREAT 1.0 mg/dl 0.5-1. 0 Not Available [facility] (Lab) [address] [place], [address], Not Available 12/24/19 24 12/24/2023 Compr ehens yael metab olic 2000 panel - Serum or Plasm a ALK.PHOS 67 U/L 38-126 Not Available [facility] (Lab) [address] [place], [address], Not Available 12/24/19 24 12/24/2023 Compr ehens yael metab olic 2000 panel - Serum or Plasm a ALT 15 U/L 1-34 Not Available [facility] (Lab) [address] [place], [address], Not Available 12/24/19 24 12/24/2023 Compr ehens yael metab olic 2000 panel - Serum or Plasm a AST 26 U/L 14-36 Not Available [facility] (Lab) [address] [place], [address], Not Available 12/24/19 24 12/24/2023 Compr ehens yael metab olic 2000 panel - Serum or Plasm a ALB 4.1 g/dl 3.5-5. 0 Not Available [facility] (Lab) [address], [place], [address], Not Available 12/24/19 24 12/24/2023 Compr ehens yael metab olic 2000 panel - Serum or Plasm a TBIL 0.80 mg/dl 0.20-1 .30 Not Available [facility] (Lab) [address], [place], [address], Not Available 12/24/19 24 12/24/2023 Compr ehens yael metab olic 2000 panel - Serum or Plasm a TP 7.7 g/dl 6.3-8. 2 Not Available [facility] (Lab) [address], [place], [address], Not Available 12/24/19 24 12/24/2023 Compr ehens yael metab olic 2000 panel - Serum or Plasm a CA 8.0 mg/dl 8.4-10 .2 Not Available [facility] (Lab) [address], [place], [address], Not Available 12/24/19 24 12/24/2023 Compr ehens yael metab olic 2000 panel - Serum or Plasm a GAP 5.0 mmol/ L 6.0-16 .0 Not Available [facility] (Lab) [address], [place], [address], Not Available 12/24/19 24 12/24/2023 Compr ehens yael metab olic 2000 panel - Serum or Plasm a B/C 23.00 7.00-3 0.00 Not Available [facility] (Lab) [address], [place], [address], Not Available 12/24/19 24 12/24/2023 Compr ehens yael metab olic 2000 panel - Serum or Plasm a OSMO 284 mos/k g 273-30 4 Not Available [facility] (Lab) [address], [place], [address], Not Available 12/24/19 24 12/24/2023 Compr ehens yael metab olic 2000 panel - Serum or Plasm a A/G RATIO 1.14 0.90-2 .30 Not Available [facility] (Lab) [address], [place], [address], Not Available 12/24/19 24 12/24/2023 Compr ehens yael metab olic 2000 panel - Serum or Plasm a GLOBULIN 3.6 g/dl 2.2-3. 9 Not Available [facility] (Lab) [address], [place], [address], Not Available 12/24/19 24 12/24/2023 Compr ehens yael metab olic 2000 panel - Serum or Plasm a GFR- AA Greate r Than 60 mL/mi n/1.7 3_m^2 Not Available [facility] (Lab) [address], [place], [address], Not Available 12/24/19 24 12/24/2023 Compr ehens yael metab olic 2000 panel - Serum or Plasm a GFR- OTHER Greate r Than 60 mL/mi n/1.7 3_m^2 It is recom harshal d that for: GFR value s great er than 60 mL/mi n/1.7 3 sq.me ters - no addit ional renal evalu ation is requi red GFR value s less than 60 mL/mi n/1.7 3 sq.me ters - compl ete evalu ation for renal disea se GFR value s less than 60 mL/mi n/1.7 3 sq.me ters - consu ltati on with a Nephr ologi st Not Available [facility] (Lab) [address], [place], [address], Not Available Result Notes Documentation Provider Name and Address Organization Details Recorded Time Xr, Chest, 2 View : XRAY CHEST PA/LAT HISTORY: Chest pain PROCEDURE: PA and lateral chest. The comparison was made with 03/19/2019 FINDINGS: 1. No evidence of pneumonia consolidation, pneumothorax, mass or effusion is seen. 2. Status post cardiac surgery is noted 3. The pulmonary vascularities, heart, mediastinum, diaphragms and the right and left ribs are unremarkable. 4. Mildly spondylosis of thoracic spine is noted with minimal dextroscoliosis of the thoracic lumbar junction 5. monitoring specialist leads are noted over anterior chest wall IMPRESSION: 1. Status post cardiac surgery 2. No acute abnormality chest finding is seen Magdiel Cheng MD Dictation Date: 05/29/2019 10:30 Not Available [facility] 05/29/2019 11:31:01 Xr, Abdomen, 1 View : 05/29/2019 XR ABD - ABDOMEN OR KUB HISTORY: Constipation PROCEDURE: AP supine abdomen and pelvis was obtained FINDINGS: 1. There are fecal matter is scattered throughout colon noted due to moderate constipation 2. No abnormal mass, free fluid or an intestinal obstruction is noted 3. Multiple small calcification in pelvic cavity is noted due to phleboliths 4. .There are a few metallic surgical clips noted in the right upper quadrant of abdomen noted due to the previous surgery 5. Mildly spondylosis of lumbar spine is noted with minimal levoscoliosise 6. The visible liver, spleen and both kidneys are unremarkable IMPRESSION: 1. Moderate constipation 2. No acute abnormality findings in the abdomen and pelvis is seen Magdiel Cheng MD Dictation Date: 05/29/2019 10:34 Not Available [facility] 05/29/2019 11:34:46 Xr, Chest, 1 View : EXAM DESCRIPTION: XR PORT CHEST REASON FOR STUDY: chest pain Presents to the ER by private car from home c/o intermittent left side chest pain that radiates to left side Duration: two days TECHNIQUE: Frontal radiographic view(s) of the chest. COMPARISON: 05/29/2019 FINDINGS: Mild hazy bibasilar opacities, likely overlying soft tissue. No consolidation. No pleural effusion or pneumothorax. Mild cardiomegaly. Mediastinal contours are normal. Median sternotomy wires. Valve replacement. IMPRESSION: 1. Mild cardiomegaly. AG: AG Report ID: [id number] Reading Location: [id number] Jovan Navarro MD Dictation Date: 08/17/2023 19:03 Not Available [facility] 08/17/2023 20:06:39 Nm, Lung Scan, Ventilation/perfusion : EXAM DESCRIPTION: NUC PULMONARY PERF / VENT /AEROSOL RADIOPHARMACEUTICAL: 5.5 mCi Tc-99m MAA via a upper extremity peripheral vein IV site REASON FOR STUDY: D-dimer of 1,210, chest pain Duration: few days Previous Surgery: 5 open heart surgeries, stent 2010 TECHNIQUE: Perfusion scintigrams were obtained. COMPARISON: Chest radiograph 08/17/2023 FINDINGS: Chest radiograph demonstrates cardiomegaly and changes of known valve replacement. Cardiomegaly. No perfusion defects in the right or left lungs. IMPRESSION: Normal perfusion scan. BB: BB Report ID: [id number] Reading Location: [id number] Bairon Olguin MD Dictation Date: 08/18/2023 01:51 Not Available [facility] 08/18/2023 02:54:15 Xr, Chest, 1 View : EXAM DESCRIPTION: XR PORT CHEST REASON FOR STUDY: chest pain, chest tightness, coughing up blood, Hx heart surgery/valve replacement Duration: today Previous Surgery: heart surgery/valve replacement 2011 TECHNIQUE: Single radiographic view(s) of the chest. COMPARISON: Chest radiograph 08/17/2023 FINDINGS: LUNGS: No focal opacity, pleural effusion, or pneumothorax. HEART/MEDIASTINUM: Mildly enlarged cardiac silhouette. Postsurgical changes in the mediastinum with sternotomy wires, surgical clips and valvular replacement. LINES/TUBES: None. BONES: No acute osseous abnormality. IMPRESSION: No acute cardiopulmonary abnormality. FT: FT Report ID: [id number] Reading Location: [id number] Karlos Bettencourt MD Dictation Date: 12/24/2023 18:52 Not Available [facility] 12/24/2023 19:55:41 Ct, Head, W/o Contrast : EXAM DESCRIPTION: CT HEAD W/O CONTRAST REASON FOR STUDY: Patient presents with a seizure today, history of seizure. Witnessed seizure, just sitting watching TV. Patient did have a seizure last night and the night before. Duration: 3 days TECHNIQUE: Axial images acquired through the brain without intravenous contrast. Images stored on PACS. Automated exposure control was used as a dose optimization technique for this examination. COMPARISON: 03/19/2019. FINDINGS: BRAIN: Ventricles, cisterns and sulci are symmetric and in size and configuration. Cage-white matter differentiation appears preserved. No intracranial is evident. EXTRA-AXIAL SPACES: No fluid collections. No mass effect. CALVARIUM: Appears intact. SINUSES/MASTOIDS: No fluid or mucosal thickening. ORBITS: No significant abnormality. OTHER: No other significant abnormality. IMPRESSION: No acute intracranial findings. 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 Yolanda Yoon RN [address] [place] [address], [address], [facility] 7 20:25:28 Depressi ve disorder 30667123 Active 2016 Yolanda Yoon RN [address] [place] [address], [address], [facility] 7 20:25:34 viral pharyngi tis 2588373 Active 2016 Seth Ceballos MD [address] [place] [address], [address], [facility] 7 23:05:00 upper respirat ory infectio n 80616353 Active 2017 Rajinder Wallis MD [address] [place] [address], [address], [facility] 8 19:45:40 chest wall pain 386730441 Active 2017 Tonia Navarrete MD [address] [place] [address], [address], [facility] 8 13:49:19 Anxiety 20964489 Active 2017 Yolanda Yoon RN [address] [place] [address], [address], [facility] 8 12:52:47 chest wall pain 661531307 Active 2017 Jose Miguel Rios MD [address] [place] [address], [address], [facility] 8 09:50:10 contusio n of back 60066782 Active 2018 Tonia Navarrete MD [address] [place] [address], [address], [facility] 9 22:25:49 headache 37675663 Active 2018 Ruddy Chavez MD [address] [place] [address], [address], [facility] 9 20:06:44 chest wall pain 830459616 Active 2018 Ruddy Chavez MD [address] [place] [address], [address], [facility] 9 20:07:00 chest pain 06996886 Active 2018 Salvatore Foster MD [address] [place] [address], [address], [facility] 9 11:27:24 thromboc ytopenic disorder 952526482 Active 2018 Salvatore Foster MD [address] [place] [address], [address], [facility] 9 11:27:50 constipa tion 35830962 Active 2018 Salvatore Foster MD [address] [place] [address], [address], [facility] 9 12:37:47 Acid reflux 437493023 Active 2018 Yolanda Kinney RN [address] [place] [address], [address], [facility] 9 10:25:55 Hyperthy roidism 04149874 [place] 2018 [place] [address] [place] [address], [address], [facility] 9 10:26:05 Hyperten sive disorder 98383011 Active 2018 Yolanda Kinney RN [address] [place] [address], [address], [facility] 9 10:26:25 chest pain 70520091 Completed 202208/18/2023 Jose Miguel Rios MD [address] [place] [address], [address], [facility] 3 03:34:11 musculos keletal chest pain 864959559 Active 2022 Jose Miguel Rios MD [address] [place] [address], [address], [facility] 3 03:34:03 atypical chest pain 592234782 Active 2023 Khadra Recinos MD [address] [place] [address], [address], [facility] 4 21:13:56 sore throat 808627198 Active 2023 Khadra Recinos MD [address] [place] [address], [address], [facility] 4 21:14:02 seizure 71167847 Active 2023 LUISA PUGH MD [address] [place] [address], [address], [facility] 4 18:56:01 seizure disorder 411775751 Active 2023 LUISA PUGH MD [address] [place] [address], [address], [facility] 4 18:56:17 Seizure 65925837 Active 2023 LUISA PUGH MD [address] [place] [address], [address], [facility] 4 18:59:13 Seizure 38236951 Active 2023 LUISA PUGH MD [address] [place] [address], [address], [facility] 4 18:59:13 Notes:open heart -valve repl acement 2010 reviewed 08-17-23 AE Problem Notes None recorded. Procedures Surgical History Date Name Laterality Status Provider Name and Address Organization Details Recorded Time 12/24/19 24 Peripheral IV Insertion completed Fe Jara RN [address] [place] [address], [address], [facility] 12/24/2023 20:21:14 08/17/20 23 Peripheral IV Insertion completed Gabriella Blount RN [address] [place] [address], [address], [facility] 08/17/2023 19:27:49 05/29/20 19 Peripheral IV Removal completed Yolanda Kinney RN [address] [place] [address], [address], [facility] 05/29/2019 13:08:28 05/29/20 19 Peripheral IV Insertion completed Yolanda Kinney RN [address] [place] [address], [address], [facility] 05/29/2019 10:50:26 03/19/20 19 Peripheral IV Removal completed Muna Elliott RN [address] [place] [address], [address], [facility] 03/19/2019 20:24:35 03/19/20 19 Peripheral IV Insertion completed Tommy Tejeda RN [address] [place] [address], [address], [facility] 03/19/2019 19:50:30 07/08/20 17 Peripheral IV Removal completed Tommy Tejeda RN [address] [place] [address] [place], [address], [facility] 07/08/2017 23:31:29 07/08/20 17 Peripheral [place] [address] [place] [address], [address], [facility] 07/08/2017 21:26:04 Cholecystectomy [place] [address] [place] [address], [address], [facility] 07/08/2017 20:25:46 Appendectomy [place] [address] [place] [address], [address], [facility] 07/08/2017 20:25:52 Imaging Results None recorded. Procedure Notes Documentation Provider Name and Address Organization Details Recorded Time Procedure Documentation Peripheral IV RemovalProcedure explained to: patient IV removed with catheter tip intact. Site assessment: site clear and bleeding controled Dressing: gauze and coban Complications[place] [address] [place] [address], [address], [facility] 05/29/2019 13:08:37 Procedure Documentation Peripheral IV InsertionIV Inserted: 05/29/2019 Time: 0940 Site: right antecubital Skin antisepsis: chlorhexidine Gauge: 20 Attempts: 1 Blood return: yes Flushed: without resistance Secured with: transparent adhesive and tape Complications: none Yolanda Kinney RN [address] [place], [address], [facility] 05/29/2019 10:50:27 Procedure Documentation Peripheral IV InsertionIV Inserted: 08/17/2023 Time: Site: right antecubital Skin antisepsis: chlorhexidine Gauge: 20 Attempts: 1 Blood return: yes Flushed: without resistance Secured with: transparent adhesive Complications: none Gabriella Blount RN [address] [place], [address], [facility] 08/17/2023 19:27:49 Procedure Documentation Peripheral IV InsertionIV Inserted: 12/24/2023 Time: 1712 Site: left antecubital Skin antisepsis: chlorhexidine Gauge: 20 Attempts: 1 Blood return: yes Flushed: without resistance Secured with: transparent adhesive Complications: none Fe Jara, JOHANNA [address] [place], [address], [facility] 12/24/2023 20:21:15 Medical Equipment None Reported. Allergies Allergen ID Allergen Name Allergen Category Reaction Reaction Severity Criticality Documentation Date Start Date Code Code System Note Provider Name and Address Organization Details Recorded Time 46639 Iodinated contrast media (substanc e) medicatio n lighthead edness severe Not available 07/08/2017 30707 2003 SNOMED Yolanda Yoon RN [address] [place], [address], [facility] 7 20:24:24 04466 penicilli n G Not available Not available Not available Not available 05/24/2024 7980 RxNonathalia Kay RN [address] [place], [address], [facility] 4 16:43:24 33459 melatonin medicatio n Not available Not available Not available 05/24/2024 6711 RxBrenton Kay RN [address] [place], [address], [facility] 4 16:43:31 Medications Name Sig Start Date Stop Date Status Note LastModified by Organization Details LastModified Time fluoxetin e 40 mg capsule Take 1 capsule every day by oral route. 05/08 completed Not Available Not Available Not Available amoxicill in 500 mg capsule Take 1 capsule every 8 hours by oral route for 7 days. 11/30 completed Not Available Not Available Not Available levothyro xine 175 mcg tablet TAKE 1 TABLET BY MOUTH ONCE DAILY BEFORE BREAKFAS T active Not Available Not Available No t Available azithromy jamey 250 mg tablet TAKE 2 TABLETS BY MOUTH ON DAY 1, AND THEN TAKE 1 TABLET BY MOUTH ONCE A DAY ON DAY 2 THROUGH DAY 5 active Not Available Not Available No t Available levetirac etam 500 mg tablet TAKE 1 TABLET BY MOUTH TWICE DAILY active Not Available Not Available No t Available Ativan 1 mg tablet Take 1 tablet twice a day by oral route. 05/24 completed Not Available Not Available Not Available Keflex 500 mg capsule Take 1 capsule every 6 hours by oral route. 11/[address] [facility] called and Not Available Not Available Not Available Lasix 40 mg tablet Take 1 tablet every day by oral route. 05/24 completed Not Available Not Available Not Available sucralfat e 1 gram tablet TAKE 1 TABLET BY MOUTH TWICE DAILY BEFORE BREAKFAS T AND SUPPER active Not Available Not Available No t Available omeprazol e 40 mg capsule,d elayed release TAKE 1 CAPSULE BY MOUTH ONCE DAILY active Not Available Not Available No t Available tramadol 50 mg tablet TAKE 1 TABLET BY MOUTH EVERY 6 HOURS NEEDED active Not Available Not Available No t Available meloxicam 7.5 mg tablet TAKE 1 TABLET BY MOUTH ONCE DAILY active Not Available Not Available No t Available famotidin e 20 mg tablet Take 1 tablet twice a day by oral route. 05/24 completed Not Available Not Available Not Available lorazepam 0.5 mg tablet TAKE 1 TABLET BY MOUTH TWICE DAILY NEEDED FOR ANXIETY active Not Available Not Available No t Available dicyclomi ne 20 mg tablet TAKE 1 TABLET BY MOUTH 4 TIMES DAILY active Not Available Not Available No t Available benzonata te 100 mg capsule TAKE 1 CAPSULE BY MOUTH EVERY 6 HOURS NEEDED FOR COUGH active Not Available Not Available No t Available pantopraz ole 40 mg tablet,de layed release Take 1 tablet every day by oral route. 2023 active Not Available Not Available Not Avai lable ibuprofen 400 mg tablet TAKE 1 TABLET BY MOUTH THREE TIMES DAILY active Not Available Not Available No t Available nitroglyc joanne 0.4 mg sublingua l tablet Place 1 tablet as needed by sublingu al route as needed. 05/24 completed Not Available Not Available Not Available omeprazol e 20 mg capsule,d elayed release TAKE 1 CAPSULE BY MOUTH ONCE DAILY BEFORE BREAKFAS T active Not Available Not Available No t Available mirtazapi ne 45 mg tablet Take 1 tablet every day by oral route at bedtime. 05/08 completed Not Available Not Available Not Available hydroxyzi ne HCl 25 mg tablet TAKE 1 TABLET BY MOUTH THREE TIMES DAILY NEEDED FOR ANXIETY active Not Available Not Available No t Available levothyro xine 200 mcg tablet TAKE 1 TABLET BY MOUTH ONCE DAILY BEFORE BREAKFAS T active Not Available Not Available No t Available levetirac etam 750 mg tablet TAKE 1 TABLET BY MOUTH TWICE DAILY active Not Available Not Available No t Available methylpre dnisolone 4 mg tablets in a dose pack TAKE BY MOUTH DIRECTED ON INSIDE OF PACKAGE active Not Available Not Available No t Available albuterol sulfate HFA 90 mcg/actua tion aerosol inhaler INHALE 2 PUFFS BY MOUTH EVERY 4 HOURS NEEDED active Not Available Not Available No t Available ondansetr on 4 mg disintegr ating tablet DISSOLVE 1 TABLET IN MOUTH EVERY 8 HOURS NEEDED FOR NAUSEA AND VOMITING active Not Available Not Available No t Available fluticaso ne propionat e 50 mcg/actua tion nasal spray,sujatha pension USE 1 SPRAY(S) IN EACH NOSTRIL ONCE DAILY active Not Available Not Available No t Available dicyclomi ne 10 mg capsule TAKE 1 CAPSULE BY MOUTH 4 TIMES DAILY active Not Available Not Available No t Available hydroxyzi ne pamoate 25 mg capsule TAKE 1 CAPSULE BY MOUTH THREE TIMES DAILY NEEDED FOR ANXIETY active Not Available Not Available No t Available Prilosec OTC 20 mg tablet,de layed release Take 1 tablet every day by oral route. 2023 active Not Available Not Available Not Avai lable bupropion HCl XL 300 mg 24 hr tablet, extended release Take 1 tablet every day by oral route. 05/24 completed Not Available Not Available Not Available Constulos e 10 gram/15 mL oral solution TAKE 15ML BY MOUTH AT BEDTIME active Not Available Not Available No t Available aspirin 81 mg every day 2023 active Not Available Not Available Not Avai lable levothyro xine 175 mcg every day 2023 active Not Available Not Available Not Avai lable ibuprofen 600 mg 05/08 completed Not Available Not Available Not Available potassium 10 meq every day 05/24 completed Not Available Not Available Not Available buspirone 300mg every day 05/24 completed Not Available Not Available Not Available aripipraz ole 2mg daily 2023 active Not Available Not Available Not Avai lable levetirac etam 1,000 mg tablet active Not Available Not Available Not Available aripipraz ole 2 mg tablet TAKE 1 TABLET BY MOUTH ONCE DAILY active Not Available Not Available No t Available metoprolo l succ 25 mg-hydroc hlorothia zide 12.5 mg tablet,ex t.rel 24 hr Take 0.5 tablets twice a day by oral route. 05/08 completed Not Available Not Available Not Available Vitals Date Recorded Body temperature Heart rate Respiratory rate Oxygen saturation Oxygen saturation in Arterial blood by Pulse oximetry Body height Body weight Body mass index (BMI) Oxygen saturation Oxygen saturation in Arterial blood by Pulse oximetry Heart rate Heart rate Provider Name and Address Organization Details Last Updated DateTime 4 37 Fernanda 97 /min 14 /min 96 % 96 % 154.94 cm 07170 g 38.323 kg/m2 94 % 94 % 95 /min 98 /min Sue Kay RN [address] [place], [address] [place] [address] 4 22:23:27 Date Recorded Respiratory rate Oxygen saturation Oxygen saturation in Arterial blood by Pulse oximetry Heart rate Respiratory rate Oxygen saturation Oxygen saturation in Arterial blood by Pulse oximetry Systolic And Diastolic Systolic And Diastolic Systolic And Diastolic Systolic And Diastolic Systolic And Diastolic Provider Name and Address Organization Details Last Updated DateTime 4 20 /min 95 % 95 % 84 /min 20 /min 94 % 94 % 119/80 mm[Hg] 105/68 mm[Hg] 106/60 mm[Hg] 93/58 mm[Hg] 92/64 mm[Hg] Sue Kay RN [address] [place], [address] [place] [address] 4 22:24:10 Date Recorded Body height Oxygen saturation Oxygen saturation in Arterial blood by Pulse oximetry Pain severity - 0-10 verbal numeric rating [Score] - Reported Heart rate Respiratory rate Body temperature Body mass index (BMI) Body weight Provider Name and Address Organization Details Last Updated DateTime 9 154.94 cm 98 % 98 % 5 88 /min 22 /min 98.4 [degF] 32.9 kg/m2 15555 g Kadi Ocampo i, LPN [address] [place], [address] 3[facility] 9 14:13:37 Date Recorded Body temperature Heart rate Respiratory rate Oxygen saturation Oxygen saturation in Arterial blood by Pulse oximetry Body height Body weight Body mass index (BMI) Heart rate Respiratory rate Oxygen saturation Oxygen saturation in Arterial blood by Pulse oximetry Provider Name and Address Organization Details Last Updated DateTime 4 37.878069810 7778 Fernanda 99 /min 16 /min 96 % 96 % 154.94 cm 74143 g 41.031 kg/m2 96 /min 20 /min 97 % 97 % Sue Kay RN [address] [place], [address] 3[facility] 4 19:19:55 Date Recorded Heart rate Respiratory rate Oxygen saturation Oxygen saturation in Arterial blood by Pulse oximetry Heart rate Respiratory rate Oxygen saturation Oxygen saturation in Arterial blood by Pulse oximetry Heart rate Oxygen saturation Oxygen saturation in Arterial blood by Pulse oximetry Heart rate Provider Name and Address Organization Details Last Updated DateTime 4 93 /min 15 /min 95 % 95 % 90 /min 19 /min 95 % 95 % 89 /min 98 % 98 % 88 /min Sue Kay RN [address] [place], [address] 3[facility] 4 19:22:27 Date Recorded Oxygen saturation Oxygen saturation in Arterial blood by Pulse oximetry Systolic And Diastolic Systolic And Diastolic Systolic And Diastolic Systolic And Diastolic Systolic And Diastolic Systolic And Diastolic Provider Name and Address Organization Details Last Updated DateTime 4 98 % 98 % 99/68 mm[Hg] 142/65 mm[Hg] 121/66 mm[Hg] 111/47 mm[Hg] 128/56 mm[Hg] 113/62 mm[Hg] Sue Kay RN [address] [place], [address] 3[facility] 4 19:22:27 Date Recorded Body height Body temperature Respiratory rate Heart rate Oxygen saturation Oxygen saturation in Arterial blood by Pulse oximetry Body weight Body mass index (BMI) Systolic And Diastolic Provider Name and Address Organization Details Last Updated DateTime 9 154.94 cm 36.091179742 1111 Fernanda 16 /min 89 /min 99 % 99 % 59642 g 34.866 kg/m2 127/78 mm[Hg] Yolanda Kinnye RN [address] [place], [address] 3[facility] 9 10:05:57 Date Recorded Body height Respiratory rate Heart rate Oxygen saturation Oxygen saturation in Arterial blood by Pulse oximetry Body weight Body mass index (BMI) Body temperature Systolic And Diastolic Provider Name and Address Organization Details Last Updated DateTime 3 154.94 cm 21 /min 77 /min 99 % 99 % 20172 g 35.865 kg/m2 36.462894389 8889 Fernanda 102/56 mm[Hg] Alessandra alonso RN [address] [place], [address] 3[facility] 3 19:26:06 Date Recorded Heart rate Respiratory rate Oxygen saturation Oxygen saturation in Arterial blood by Pulse oximetry Heart rate Respiratory rate Oxygen saturation Oxygen saturation in Arterial blood by Pulse oximetry Systolic And Diastolic Systolic And Diastolic Provider Name and Address Organization Details Last Updated DateTime 3 80 /min 14 /min 97 % 97 % 74 /min 17 /min 97 % 97 % 111/73 mm[Hg] 115/59 mm[Hg] Feliz Traore RN [address] [place], [address] 3[facility] 3 04:00:00 Date Recorded Heart rate Respiratory rate Oxygen saturation Oxygen saturation in Arterial blood by Pulse oximetry Heart rate Respiratory rate Oxygen saturation Oxygen saturation in Arterial blood by Pulse oximetry Heart rate Respiratory rate Oxygen saturation Oxygen saturation in Arterial blood by Pulse oximetry Provider Name and Address Organization Details Last Updated DateTime 3 76 /min 15 /min 95 % 95 % 75 /min 15 /min 99 % 99 % 82 /min 15 /min 96 % 96 % Feliz Traore RN [address] [place], [address] 3[facility] 3 04:03:18 Date Recorded Heart rate Respiratory rate Oxygen saturation Oxygen saturation in Arterial blood by Pulse oximetry Systolic And Diastolic Systolic And Diastolic Systolic And Diastolic Systolic And Diastolic Provider Name and Address Organization Details Last Updated DateTime 3 74 /min 15 /min 97 % 97 % 93/54 mm[Hg] 97/40 mm[Hg] 107/56 mm[Hg] 95/53 mm[Hg] Feliz Traore RN [address] [place], [address], [facility] 3 04:04:15 Social History Question Answer Notes LastModified by Organizat ion Details LastModified Time Tobacco Smoking Status Never Smoker Yolanda Yoon RN [address] [place], [address], [facility] 07/08/2017 20:26:17 How Much Tobacco Do You Chew? None Information not available 09/20/2017 What Is Your Code Status? 0 VIVI Information not available 06/24/2024 Diabetes No Information no t available 05/14/2018 Which Illicit Or Recreational Drugs Have You Used? Denies Information not available 09/20/2017 High Blood Pressure No Information not available 05/14/2018 High Cholesterol No Informat ion not available 05/14/2018 Live Alone Or With Others? With Others Lives With Mother [email or web address] Information not available 03/19/2019 What Was The Date Of Your Most Recent Tobacco Screening? 08/17/2023 [email or web address] Information not available 08/17/2023 How Much Tobacco Do You Smoke? No Information not available 09/20/2017 Sex: Unknown Functional Status Question Answer Note LastModified by Organizat ion Details LastModified Time What is your level of alcohol consumption? None Information not available 09/20/2017 Are you currently employed? Yes [employer] Information not available 11/28/2017 Are you able to care for yourself independently? 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 Family History Nothing Reported. Medical History Condition Response Anxiety Disorder Y Other Y Heart Disease Y Hypothyroidism Y Depression Y Gynecological History Statement/Question Response Date of LMP 04/07/2019 Obstetrics History GPAL:G 0 P 0 0 0 0 Past Encounters Encounter ID Performer Location Encounter Start Date Encounter Closed Date Diagnosis/Indication Diagnosis SNOMED-CT Code Diagnosis ICD10 Code Diagnosis IMO Codes Diagnosis Note [id number] Issac Ceballos MD Emergency Room [address] [place] [address] 07/08/2017 20:14:00 07/08/2017 23:30:00 viral pharyngitis [id number] Rajinder Wallis MD Emergency Room [address] [place] [address] 11/28/2017 19:08:00 11/28/2017 20:00:00 upper respiratory infection [id number] Tonia Navarrete MD Emergency Room [address] [place] [address] 05/14/2018 12:36:00 05/14/2018 13:54:00 chest wall pain [id number] Jose Miguel Rios MD Emergency Room [address] [place] [address] 05/29/2018 09:08:00 05/29/2018 10:00:00 chest wall pain 639792011 [id number] Tonia Navarrete MD Emergency Room [address] [place] [address] 12/15/2018 21:26:00 12/15/2018 22:37:00 contusion of back [id number] Ruddy Chavez MD Emergency Room [address] [place] [address] 03/19/2019 18:37:00 03/19/2019 20:17:00 headache 69330041 chest wall pain [id number] DR MARYJANE ON STAFF OP Lab/Rad/C ardio Test [address] [place] [address] 05/08/2019 14:11:00 05/09/2019 00:59:00 [id number] Salvatore Foster MD Emergency Room [address] [place] [address] 05/29/2019 09:57:00 05/29/2019 12:52:00 chest pain 75049034 thrombocyt openic disorder [id number] [facility] [id number] Jose Miguel Rios MD Emergency Room [address] [place] [address] 08/17/2023 19:11:00 08/18/2023 03:48:00 chest pain 25436303 musculoske letal chest pain 476601541 [id number] Khadra Recinos MD Emergency Room [address] [place] [address] 12/24/2023 17:24:00 12/24/2023 21:45:00 atypical chest pain 557241812 sore throat [id number] LUISA PUGH MD Emergency Room [address] [place] [address] 05/24/2024 16:36:00 05/24/2024 19:09:00 seizure 34008670 seizure disorder 922259895 Seizure 01284291 R56.9 Health Concerns Section Related Observation LastModified by Organization Detai ls LastModified Time None Recorded Concern Status LastModified by Organization Details LastModified Time None Recorded Advance Directives Directive None Recorded Payers Insurance Date Sequence Insurance Name Policy Number Policy Montano Covered Member ID Montano Member ID Guarantor Name 08/17/2023 3 [place] [facility] [id number] [facility]03/19/2019 2 [place]ARE OR MEDICARE REPLACEMENT PR[facility]) [facility] [id number] [place] 05/08/2019 [place] [employer] [facility] [id number] [place] 05/08/2019 [place] [facility] [id number] [place] 05/08/2019 [place] [facility] [id number] [place] 03/22/2019 2 [place] [id number] [facility] [id number] [facility] 05/08/2019 2 [place] [id number] [facility] [id number] [facility]05/24/2024 2 [place] OR [place]IC[place] REPLACEMENT PRIMARY) [place] [id number] [facility] 05/24/2024 1 [facility] (MEDICARE REPLACEMENT/ADV ANTAGE - PPO) [id number] Leana Gamino [id number] Leana Gamino 08/17/2023 1 [place] Lenaa Gamino [id number] Leana Gamino Notes Date Note Type Note Provider Name and Address Organization Details Recorded Time 05/08/2019 text/html Pain Management Abdominal PainReported by Patient Abdominal PainReported by PatientAbdominal PainFor quality, patient reportspain. For location, patient reportsruq. For severity, patient reportspain level 5/10. For onset/timing, patient reportsbetterandwax/wa ne. For context, patient reportshistory of thyroid disease. For associated symptoms, patient reportsno fever,no chills,no blood in the urine,no heartburn, andno shortness of breath. For other, patient reportslm//. For duration, (approx 1 week). For modifying factors, (laying down). MANGO Stoll [address] [place], [address], [facility] 05/08/2019 15:29:43 OBGyn Episode No OBEpisode recorded.
--- OUTSIDE RECORDS SUMMARY | 2025-07-09 22:04 | XMS_ITS | Clinical Summary ---
Author Organization [facility] Address [address] [place] [address] Care Team Providers Care Check Processor Name Role Phone Hoa Fuller Primary Care Provider [phone] Lissett Bertrand NP Unavailable [phone] Allergies Active Allergy Reactions Criticality Noted [...] CDT - 07/01/2025 1:04 AM CDT Emergency [facility] Emergency Department [address] [place] [address] Marcelina Marin MD Chest pain, unspecified type (Primary Dx) Discharge Disposition: Discharge to home or self care from Last 3 Months Immunizations Immunization Administration Dates Next Due Influenza, Quadrivalent, Spl it, Preservative Free, Intramuscular 07/13/2021 Influenza, Unspecified 07/09/2023 Surgical History Surgery Date Site/Laterality Comments PALATOPLASTY Palatoplasty For Cleft Palate - (Added by TW Conv) [place] HEMORRHOIDECTOMY INTERNAL RUBBER BAND LIGATIONS Hemorrhoidectomy - (Added by TW Conv) APPENDECTOMY CHOLECYSTECTOMY TETRALOGY OF FALLOT REPAIR 01/04/1990 Dr. Calabrese, [facility] RIGHT VENTRICULAR OUTFLOW TR ACT REPAIR 12/07/2006 Dr. José Hookerton PULMONARY VALVE REPLACEMENT 09/09/2011 Dr. 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 Testing performed by: [facility], [address] [place] [address]., [id number] Trop T hs delta 0 ng/L JOELLE KRAMER Comment:Testing performed by : [facility], [address] [place] [address]., [id number] Trop T hs interp Insignificant JOELLE Comment:Testing performed by : [facility], [address] [place] [address]., [id number] Blood 06/30/2025 10:4 8 PM CDT 06/30/2025 10:50 PM CDT Marcelina Marin MD LAB BLOOD ORDERABLES Della barrett Result JOELLE [address] [facility] Department [place] [address] * XR Chest 1 Vw [...] effusion, or pneumothorax identified. HEART/MEDIASTINUM: Trachea midline. Bvnv-[id number]-bbkuaqjt cardiomegaly. BONES: Sternotomy wires. CHEST WALL: Unremarkable. UPPER ABDOMEN: Unremarkable. IMPRESSION: No acute abnormality identified. Fvrz-bd-[id number] cardiomegaly. THIS IS AN ELECTRONICALLY VERIFIED FINAL REPORT 06/30/2025 9:15 PM - Electronically signed by Jin Pelaez M.D. AR: SALVATORE Report ID: [id number] Reading Location: [id number] Procedure Note Jin Pelaez MD - 06/30/2025 EXAM DESCRIPTION: XR CHEST 1 VIEW REASON FOR STUDY: chest pain Patient presents with complaints of chest pain, neck pain, shortness of breath, and headaches x 2 months TECHNIQUE: Portable upright AP view of the chest. COMPARISON: 06/18/2024 FINDINGS: LUNGS AND PLEURA: No focal opacity, large effusion, orpneumothorax identified. HEART/MEDIASTINUM: Trachea midline. Nmym-mj-rhgfvfzo cardiomegaly. BONES: Sternotomy wires. CHEST WALL: Unremarkable. UPPER ABDOMEN: Unremarkable. IMPRESSION: No acute abnormality identified. [id number]-pc-mjldyxkzueykpjgyhnev. THIS IS AN ELECTRONICALLY VERIFIED FINAL REPORT 06/30/2025 9:15 PM - Electronically signed by Jin Pelaez M.D. AR: SALVATORE Report ID: [id number] Reading Location: [place] [address] Marcelina Marin MD IMG XR PROCEDURES Final R esult * ECG 12 lead (06/30/2025 9:00 PM CDT) Ventricular Rate EKG/Min 99 BPM [facility] Atrial Rate 99 BPM [facility] IL-Interval (MSEC) 158 ms [facility] QRS-Interval (MSEC) 136 ms [facility] QT-Interval (MSEC) 386 ms [facility] QTc 495 ms [facility] P [place] 34 degrees [facility] R [place] 69 degrees [facility] T [employer] [place] 74 degrees [facility] Diagnosis Normal sinus rhythm Right bundle branch block Abnormal ECG When compared with ECG of 12-JUN-2024 20:46, No significant change was found Confirmed by IVANA WALTERS M.D. ([id number]) on 07/01/2025 6:32:01 AM [facility] 06/30/2025 9:00 PM CDT 07/01/2025 6:32 AM CDT Marcelina Marin MD ECG ORDERABLES Final Res ult [facility] * Troponin T high-sensitivity series (baseline, 2hr, 4hr, 6hr) (06/30/2025 8:55 PM CDT) Trop T hs <6 <=14 ng/L Comment: Interpretive Data For further hscTnT resources including the diagnostic algorithm and an aid in interpretation, copy and paste this link: https://nrl.testcatalog.org/show/hsTrop Current Interpretive Data last revised 2020. Testing performed by: [facility], [address] [place] [address]., [id number] Blood 06/30/2025 8:55 PM CDT 06/30/2025 9:04 PM CDT us Marcelina Marin MD LAB BLOOD ORDERABLES Della barrett Result JOELLE [address] [facility] Department [place] [address] * eGFR (06/30/2025 8:55 PM [...] was last reviewed 2021. Testing performed by: [facility], [address] [place] [address]., [address] Blood 06/30/2025 8:55 PM CDT 06/30/2025 9:04 PM CDT us Marcelina Marin MD LAB BLOOD ORDERABLES Della barrett Result [facility] [address] [facility] Department [place] [address] * Differential, auto (06/30/2025 8:55 PM CDT) Neutrophil abs 3.12 1.50 - 6.50 K/cumm Comment:Testing performed by : [address] [address] Imm gran abs 0.01 0.00 - 0.10 K/cumm JOELLE Comment:Testing performed by : [address] [address] Lymphocyte abs 0.93 0.80 - 3.30 K/cumm JOELLE Comment:Testing performed by : [address] [address] Monocyte abs 0.60 0.20 - 0.80 K/cumm JOELLE Comment:Testing performed by : [address] [address] Eosinophil abs 0.11 0.00 - 0.50 K/cumm JOELLE Comment:Testing performed by : [address] [address] Basophil abs 0.03 0.00 - 0.10 K/cumm JOELLE Comment:Testing performed by : [address] [address] Neutrophil pct 65.0 % JOELLE Comment: Interpretive Data Percent cell count reference ranges are not reported, since discordance with absolute values may lead to misinterpretation of CBC data. Current Interpretive Data was last revised on 2018. Testing performed by: [address] [address] Imm gran pct 0.2 % JOELLE Comment: Interpretive Data Percent cell count reference ranges are not reported, since discordance with absolute values may lead to misinterpretation of CBC data. Current Interpretive Data was last revised on 2018. Testing performed by: [address] [address] Lymphocyte pct 19.4 % JOELLE Comment: Interpretive Data Percent cell count reference ranges are not reported, since discordance with absolute values may lead to misinterpretation of CBC data. Current Interpretive Data was last revised on 2018. Testing performed by: [address] [address] Monocyte pct 12.5 % JOELLE Comment: Interpretive Data Percent cell count reference ranges are not reported, since discordance with absolute values may lead to misinterpretation of CBC data. Current Interpretive Data was last revised on 2018. Testing performed by: [address] [address] Eosinophil pct 2.3 % JOELLE Comment: Interpretive Data Percent cell count reference ranges are not reported, since discordance with absolute values may lead to misinterpretation of CBC data. Current Interpretive Data was last revised on 2018. Testing performed by: [address] [address] Basophil pct 0.6 % JOELLE Comment: Interpretive Data Percent cell count reference ranges are not reported, since discordance with absolute values may lead to misinterpretation of CBC data. Current Interpretive Data was last revised on 2018. Testing performed by: [address] [address] Blood 06/30/2025 8:55 PM CDT 06/30/2025 9:04 PM CDT us Marcelina Marin MD LAB BLOOD ORDERABLES Della barrett Result JOELLE [address] [facility] Department [place] [address] * (ABNORMAL) CBC with auto differential (06/30/2025 8:55 PM CDT) WBC 4.80 3.80 - 9.90 K/cumm Comment:Testing performed by : [address] [address] Hgb 12.3 11.9 - 15.5 g/dL JOELLE Comment:Testing performed by : [address], [address] Hct 35.5(L) 35.6 - 45.5 % JOELLE Comment:Testing performed by : [address] [address] Plt 93(L) 150 - 400 K/cumm JOELLE Comment:Testing performed by : [address], [address] MPV 11.8 9.1 - 12.3 fL JOELLE Comment:Testing performed by : [address], [address] RBC 3.90 3.90 - 5.20 M/cumm JOELLE Comment:Testing performed by : [address], [address] MCV 91.0 81.3 - 96.4 fL JOELLE Comment:Testing performed by : [address], [address] MCH 31.5 27.1 - 33.3 pg JOELLE Comment:Testing performed by : [address], [address] MCHC 34.6 32.3 - 35.7 g/dL JOELLE Comment:Testing performed by : [address], [address] RDW CV 13.6 11.1 - 14.9 % JOELLE Comment:Testing performed by : [address], [address] RDW SD 44.7 35.7 - 48.1 fL JOELLE Comment:Testing performed by : [address] [address] NRBC abs 0.00 0.00 - 0.01 K/cumm JOELLE Comment:Testing performed by : [address], [address] Blood Venous blood specimen / Unknown 06/30/2025 8:55 PM CDT 06/30/2025 9:04 PM CDT Marcelina Marin MD LAB BLOOD ORDERABLES Della barrett Result [facility] [address] [facility] Department [place] [address] * Comprehensive metabolic panel (06/30/2025 8:55 PM CDT) Sodium 139 135 - 145 mmol/L Comment:Testing performed by : [address] [address] Potassium, pl 4.4 3.3 - 4.9 mmol/L JOELLE Comment:Testing performed by : [address] [address] Chloride 102 97 - 110 mmol/L JOELLE Comment:Testing performed by : [address] [address] CO2 25 22 - 32 mmol/L JOELLE Comment:Testing performed by : [address] [address] Anion gap 12 2 - 15 mmol/L JOELLE Comment:Testing performed by : [address] [address] BUN 17 6 - 25 mg/dL JOELLE Comment:Testing performed by : [address] [address] Creatinine 0.85 0.60 - 1.10 mg/dL JOELLE Comment:Testing performed by : [address] [address] Glucose 93 70 - 199 mg/dL JOELLE [...] was last revised 2022. Testing performed by: [address] [address] Calcium 8.8 8.5 - 10.3 mg/dL JOELLE Comment:Testing performed by : [address] [address] Bilirubin, total 0.5 0.1 - 1.2 mg/dL JOELLE Comment:Testing performed by : [address] [address] Protein, pl 8.2 6.5 - 8.5 g/dL JOELLE Comment:Testing performed by : [address] [address] Albumin 4.4 3.5 - 5.0 g/dL JOELLE Comment:Testing performed by : [address] [address] Alk phos 74 40 - 130 Units/L JOELLE Comment:Testing performed by : [address] [address] ALT 13 7 - 45 Units/L JOELLE Comment:Testing performed by : [address] [address] AST 21 10 - 45 Units/L [facility] Comment:Testing performed by : [address] [address] Blood 06/30/2025 8:55 PM CDT 06/30/2025 9:04 PM CDT Marcelina Marin MD LAB BLOOD ORDERABLES Della barrett Result [facility] [address] [facility] Department [place] [address] * (ABNORMAL) Serum Hepatitis panel (08/09/2016 11:04 AM CDT) HBV surface ag Negative NEG CDR HISTORICAL RESULTS HCV ab Positive(A) NEG CDR HISTORICAL RESULTS Comment: Interpretive Data Positive results should be confirmed by a molecular method. If positive, a second separately collected sample should be submitted for Hepatitis C Virus (HCV) RNA Detection and Quantitation by Real-Time Reverse Supervisor [employer]-PCR (RT-PCR). Current interpretive data was last revised [...] Most Recently Relevant to Health Maintenance Insurance [facility] MEDICARE ADVANTAGE [facility] MEDICARE ADVANTAGE [employer] MEDICARE ADVANTAGE [employer] Advance Directives For more information, please contact: [phone] * Full Code (Latest Code Status on File) Date Activated Date Inactivated Comments 11/01/2023 9:34 AM 11/02/2023 5:10 PM * Full Code Date Activated Date Inactivated Comments 03/20/2023 3:15 AM 03/21/2023 3:46 PM * Full Code Date Activated Date Inactivated Comments 03/12/2023 7:35 PM 03/14/2023 8:42 PM Care Teams Check Processor Relationship Specialty Start Date End Date Hoa Fuller PA [facility] [place], [place] [address] PCP - General 12/27/16 Lissett Bertrand NP [address] [place], [place] [address] Nurse Practitioner Gynecology 12/06/21
--- NOTE | 2025-07-09 22:51 | ECG_ITS ---
Test Date: 2025-07-09 22:52:54 Measurements Intervals [place] Rate: 85 P: 21 CA: 190 QRS: 73 QRSD: 156 T: 75 QT: 409 QTc: 488 Interpretive Statements SINUS RHYTHM RIGHT BUNDLE BRANCH BLOCK ABNORMAL ECG Compared to ECG 07/09/2025 20:20:58 HEART RATE HAS DECREASED Electronically Signed On 07-10-2025 05:24:44 CDT by Roger Sheikh D.O.
[2025-07-09 23:29] LABS: Troponin I < 0.012 ng/mL (0.000-0.034)
== END 2025-07-10 00:20 | disposition home or self-care (01) ==
PROVIDERS: Emergency Provider Student in an Organized Health Care Education/Training Program
DX: R09.1 Pleurisy (principal); Z95.5 Presence of coronary angioplasty implant and graft; Z95.2 Presence of prosthetic heart valve; I45.10 Unspecified right bundle-branch block; R00.0 Tachycardia, unspecified
CPT/HCPCS: 36415; 71046; 80053; 83690; 84484; 85025; 85055; 85610; 85730; 93005; 96374; 96375; 99284; A9270; J1200; J1885; J2405